=== PATIENT | male | born 1960 | race Hispanic/Latino ===

== ENCOUNTER 2017-02-20 19:09 | Inpatient (IN) | payer MEDICARE, OTHER ==
--- NOTE | 2017-02-20 19:52 | Emergency Department Report ---
History of Present Illness - General Chief Complaint: Overdose Stated Complaint: POSS OVERDOSE Time Seen by Provider: 02/20/17 19:33 Source: patient, EMS Mode of arrival: Wheelchair Limitations: No Limitations - History of Present Illness MD Complaint: intentional overdose -: Sudden, unknown How Overdose Was Discovered: family/friend present, called 911 Context: Intentional Overdose: relationship problems Context: Accidental Overdose: other (PATIENT DENIED SUICIDAL ATTEMPT. HE STATED THAT HE WAS ANXIOUS HE WANT TO RELAX) Treatments Prior to Arrival: narcan (RECEIVED 4 MG OF NARCAN) - Related Data Allergies Allergy/AdvReac Type Severity Reaction Status Date / Time No Known Allergies Allergy Unverified 02/20/17 19:15 ED Review of Systems ROS: Stated complaint: POSS OVERDOSE Other details as noted in HPI Comment: All other systems reviewed and negative Constitutional: denies: chills, fever ED Past Medical Hx - Past Medical History Previous Medical History?: No - Surgical History Past Surgical History?: Yes Additional Surgical History: finger; Arm; Leg surgery - Social History Smoking Status: Current Every Day Smoker Substance Use Type: Other ED Physical Exam - General Limitations: No Limitations General appearance: alert, in no apparent distress - Head Head exam: Present: atraumatic - Eye Eye exam: Present: normal appearance - ENT ENT exam: Present: normal exam - Neck Neck exam: Present: normal inspection - Respiratory Respiratory exam: Present: normal lung sounds bilaterally - Cardiovascular Cardiovascular Exam: Present: regular rate, normal heart sounds. Absent: systolic murmur, diastolic murmur - GI/Abdominal GI/Abdominal exam: Present: soft, normal bowel sounds. Absent: distended, tenderness, guarding, rebound, mass, pulsatile mass, hernia - Extremities Exam Extremities exam: Present: normal inspection - Back Exam Back exam: Present: normal inspection - Neurological Exam Neurological exam: Present: alert, oriented X3, CN II-XII intact - Psychiatric Psychiatric exam: Present: agitated, anxious - Expanded Psychiatric Exam Expanded Focused psych exam: Present: restlessness - Skin Skin exam: Present: warm, dry ED Course Vital Signs 02/20/17 19:15 Pulse Rate 90 Respiratory 18 Rate Blood Pressure 132/107 O2 Sat by Pulse 94 Oximetry - Reevaluation(s) Reevaluation #1: 02/21/17 01:40 PATIENT SLEEPING COMFORTABLY, EASILY AROUSABLE, NO EVIDENCE OF ALTERED MENTAL STATUS OR LETHARGY. BLOOD SUGAR IS 178, WAITING FOR PSYCHIATRIC TEAM FOR ADMISSION. ED Medical Decision Making - Lab Data Result diagrams: 02/20/17 19:46 02/20/17 19:46 Critical care attestation.: If time is entered above; I have spent that time in minutes in the direct care of this critically ill patient, excluding procedure time. ED Disposition Clinical Impression: Overdose Disposition: [id number] PSY HOSP/PSY UNIT Is pt being admited?: No Does the pt Need Aspirin: No Condition: Stable Referrals: PRIMARY CARE, [Primary Care Provider] - 3-5 Days
[2017-02-20] MEDS ORDERED: NACL 0.9% 1000 ML 1,000 ML IV ONE ×2 (19:53→21:53)
[2017-02-20 20:19] LABS: Basophils % (Auto) 0.3 % (0.0-1.8); Eosinophils % (Auto) 0.3 % (0.0-4.3); Hematocrit 45.5 % (35.5-45.6); Hemoglobin 14.8 gm/dl (11.8-15.2); Mean Corpuscular HGB Conc 33 % (32-34); Mean Corpuscular Hemoglobin 30 pg (28-32); Mean Corpuscular Volume 93 fl (84-94); Platelet Count 287 K/mm3 (140-440); Red Cell Distribution Width 13.9 % (13.2-15.2); White Blood Count 16.9 K/mm3 (4.5-11.0)
[2017-02-20 20:24] LABS: Alanine Aminotransferase 92 units/L (7-56); Albumin 4.2 g/dL (3.9-5); Albumin/Globulin Ratio 1.1 %; Alkaline Phosphatase 80 units/L (35-129); Anion Gap 20 mmol/L; BUN/Creatinine Ratio 21.66; Blood Urea Nitrogen 26 mg/dL (9-20); Calcium 8.6 mg/dL (8.4-10.2); Carbon Dioxide 27 mmol/L (22-30); Chloride 95.2 mmol/L (98-107); Glucose 422 mg/dL (75-100); Potassium 4.1 mmol/L (3.6-5.0); Sodium 138 mmol/L (137-145); Total Protein 8.2 g/dL (6.3-8.2)
[2017-02-20] MEDS ORDERED: ROCEPHIN/NS 1 GM/50 ML 1 GM/50 ML BAG IV ONE (21:53)
[2017-02-20] MEDS ORDERED: MORPHINE IV ONE (22:20)
[2017-02-20] MEDS ORDERED: ZOFRAN IV ONE (22:20)
[2017-02-20 23:03] LABS: Urine Drugs of Abuse Note Disclamer
[2017-02-20 23:16] LABS: Bilirubin,Urine NEG (Negative); Blood,Urine NEG (Negative); Ketones,Urine NEG (Negative); Leukocyte Esterase,Urine NEG (Negative); Mucus,Urine FEW /HPF; Nitrite,Urine NEG (Negative); Protein,Urine <15 mg/dL mg/dL (Negative)
[2017-02-21 12:37] LABS: Basophils % (Auto) 0.5 % (0.0-1.8); Eosinophils % (Auto) 1.4 % (0.0-4.3); Hematocrit 40.1 % (35.5-45.6); Hemoglobin 13.2 gm/dl (11.8-15.2); Mean Corpuscular HGB Conc 33 % (32-34); Mean Corpuscular Hemoglobin 30 pg (28-32); Mean Corpuscular Volume 90 fl (84-94); Platelet Count 227 K/mm3 (140-440); Red Blood Count 4.45 M/mm3 (3.65-5.03); Red Cell Distribution Width 13.7 % (13.2-15.2); White Blood Count 11.4 K/mm3 (4.5-11.0)
--- NOTE | 2017-02-21 12:41 | XRay Report ---
CHEST TWO VIEWS: 02/21/17 CLINICAL: Cough. COMPARISON: None FINDINGS: The heart is normal size. Large central pulmonary arteries. The lungs are hyperexpanded and hyperlucent. No airspace disease or pleural effusion.Mild scoliosis and exaggerated thoracic kyphosis. IMPRESSION: COPD and no acute change.
--- NOTE | 2017-02-21 12:45 | XRay Report ---
X-RAY LEFT FOREARM TWO VIEWS : 02/20/17 19:09:00 CLINICAL: Infection with draining pus. FINDINGS: Status post ORIF of both ulnar and radius fractures. A long plate with screws extends the proximal 2 thirds of the ulna and traverses healed fracture. An intramedullary elmira extends most of the length of the radius and traverses a proximal healed fracture of the radius. No erosive changes in the bones. There is moderate soft tissue swelling of the lateral soft tissues as well as the medial soft tissues. No soft tissue air. 2 linear opaque objects in the lateral soft tissues may be foreign bodies. IMPRESSION: Status post ORIF of old radius and ulna fractures. No signs of osteomyelitis. Soft tissue edema suggests cellulitis. Questionable foreign bodies in the lateral soft tissues.
[2017-02-21 12:52] LABS: Alanine Aminotransferase 76 units/L (7-56); Albumin 3.6 g/dL (3.9-5); Albumin/Globulin Ratio 1.1 %; Alkaline Phosphatase 64 units/L (35-129); Anion Gap 16 mmol/L; BUN/Creatinine Ratio 31.66; Blood Urea Nitrogen 19 mg/dL (9-20); Calcium 8.7 mg/dL (8.4-10.2); Carbon Dioxide 27 mmol/L (22-30); Chloride 99.3 mmol/L (98-107); Glucose 175 mg/dL (75-100); Potassium 3.9 mmol/L (3.6-5.0); Sodium 138 mmol/L (137-145)
[2017-02-21 13:07] LABS: Erythrocyte Sedimentation Rate 15 mm/Hr (0-20)
--- NOTE | 2017-02-21 14:43 | Emergency Department Report ---
ED General Adult HPI - General Chief complaint: Overdose Stated complaint: POSS OVERDOSE Time Seen by Provider: 02/20/17 19:33 Source: patient, EMS Mode of arrival: Wheelchair Limitations: No Limitations - History of Present Illness Initial comments: Brought this patient to my attention for review. As I understand that he was found overdosed in a car. He has a long history of methamphetamine abuse. The patient was seen and evaluated. He tells me that he has chronic drainage from his right arm. He is currently not on antibiotics. He is probably noncompliant. He has hardware in his right arm and was treated with prolonged antibiotics at [facility] for several weeks. He also states that he has a left inguinal hernia that he has been able to push in for a month. He denies any recent fever he denies any recent vomiting. Patient was seen at this facility yesterday. Apparently he was treated empirically with ceftriaxone. I'm not exactly sure what the indication was yesterday. However he was found to have an elevated lactic acid which upon repeat was normal. He also had an elevated white blood cell count. He has a dressed right arm. -: month(s) Location: right, upper extremity Radiation: non-radiation (chronic pain) Quality: dull Consistency: intermittent Improves with: none Worsens with: none Associated Symptoms: denies other symptoms Treatments Prior to Arrival: none - Related Data Home Medications Medication Instructions Recorded Confirmed Last Taken ALPRAZolam [Xanax TAB] 1 mg PO TID PRN 02/21/17 02/21/17 Unknown Allergies Allergy/AdvReac Type Severity Reaction Status Date / Time No Known Allergies Allergy Unverified 02/20/17 19:15 ED Review of Systems ROS: Stated complaint: POSS OVERDOSE Other details as noted in HPI Constitutional: denies: chills, fever Eyes: denies: eye pain, eye discharge, vision change ENT: denies: ear pain, throat pain Respiratory: denies: cough, shortness of breath, wheezing Cardiovascular: denies: chest pain, palpitations Endocrine: no symptoms reported Gastrointestinal: denies: abdominal pain, nausea, diarrhea Genitourinary: denies: urgency, dysuria Musculoskeletal: denies: back pain, joint swelling, arthralgia Skin: denies: rash, lesions Neurological: denies: headache, weakness, paresthesias Psychiatric: denies: anxiety, depression Hematological/Lymphatic: denies: easy bleeding, easy bruising ED Past Medical Hx - Past Medical History Previous Medical History?: No Hx Diabetes: Yes (noncompliant with meds) - Surgical History Past Surgical History?: Yes Additional Surgical History: finger; Arm; Leg surgery - Social History Smoking Status: Current Every Day Smoker Substance Use Type: Methamphetamines - Medications Home Medications: Home Medications Medication Instructions Recorded Confirmed Last Taken Type ALPRAZolam [Xanax TAB] 1 mg PO TID PRN 02/21/17 02/21/17 Unknown History ED Physical Exam - General Limitations: No Limitations General appearance: alert, in no apparent distress - Head Head exam: Present: atraumatic, normocephalic - Eye Eye exam: Present: normal appearance, PERRL, EOMI. Absent: scleral icterus - ENT ENT exam: Present: normal exam, mucous membranes moist - Neck Neck exam: Present: normal inspection. Absent: tenderness, meningismus - Respiratory Respiratory exam: Present: normal lung sounds bilaterally. Absent: respiratory distress - Cardiovascular Cardiovascular Exam: Present: regular rate, normal rhythm. Absent: systolic murmur, diastolic murmur, rubs, gallop - GI/Abdominal GI/Abdominal exam: Present: soft, normal bowel sounds. Absent: distended, tenderness, guarding, rebound, rigid - Rectal Rectal exam: Present: deferred - Extremities Exam Extremities exam: Present: other (erythema and a wound with some oozing from the right forearm.) - Back Exam Back exam: Present: normal inspection - Neurological Exam Neurological exam: Present: alert, oriented X3, CN II-XII intact. Absent: motor sensory deficit - Psychiatric Psychiatric exam: Present: normal mood, flat affect - Skin Skin exam: Present: warm, dry, erythema. Absent: rash ED Course Vital Signs 02/20/17 02/21/17 02/21/17 19:15 07:22 08:40 Temperature 98.3 F Pulse Rate 90 90 Respiratory 18 20 20 Rate Blood Pressure 132/107 Blood Pressure 129/51 [Left] O2 Sat by Pulse 94 100 100 Oximetry - Reevaluation(s) Reevaluation #1: Patient has an infection of his right forearm. It does appear to be quite chronic. He has a possibly chronically incarcerated left inguinal hernia. He is diabetic. He had a lactic acidosis yesterday. I do not foresee that this patient could be medically cleared in the near future. Therefore he was referred to Dr. Farias who was kind enough to admit him to the hospitalist service. 02/21/17 14:46 ED Medical Decision Making - Lab Data Result diagrams: 02/21/17 12:04 02/21/17 12:04 Laboratory Results - last 24 hr 02/20/17 02/20/17 02/20/17 19:20 19:46 19:46 WBC 16.9 H RBC 4.90 Hgb 14.8 Hct 45.5 MCV 93 MCH 30 MCHC 33 RDW 13.9 Plt Count 287 Lymph % (Auto) 6.0 L Gordon % (Auto) 8.7 H Eos % (Auto) 0.3 Baso % (Auto) 0.3 Lymph # 1.0 L Gordon # 1.5 H Eos # 0.1 Baso # 0.0 Seg Neutrophils % 84.7 H Seg Neutrophils # 14.3 H ESR PT INR VBG pH Sodium 138 Potassium 4.1 Chloride 95.2 L Carbon Dioxide 27 Anion Gap 20 BUN 26 H Creatinine 1.2 Estimated GFR > 60 BUN/Creatinine Ratio 21.66 Glucose 422 H POC Glucose 411 H Lactic Acid Calcium 8.6 Magnesium 2.00 Total Bilirubin 1.30 H AST 46 H ALT 92 H Alkaline Phosphatase 80 C-Reactive Protein Total Protein 8.2 Albumin 4.2 Albumin/Globulin Ratio 1.1 TSH Urine Color Urine Turbidity Urine pH Ur Specific Jolo Urine Protein Urine Glucose (UA) Urine Ketones Urine Blood Urine Nitrite Urine Bilirubin Urine Urobilinogen Ur Leukocyte Esterase Urine WBC (Auto) Urine RBC (Auto) Urine Mucus Salicylates Urine Opiates Screen Urine Methadone Screen Acetaminophen Ur Barbiturates Screen Ur Phencyclidine Scrn Ur Amphetamines Screen U Benzodiazepines Scrn Urine Cocaine Screen U Marijuana (THC) Screen Drugs of Abuse Note Plasma/Serum Alcohol 02/20/17 02/20/17 02/20/17 19:46 19:46 19:46 WBC RBC Hgb Hct MCV MCH MCHC RDW Plt Count Lymph % (Auto) Gordon % (Auto) Eos % (Auto) Baso % (Auto) Lymph # Gordon # Eos # Baso # Seg Neutrophils % Seg Neutrophils # ESR PT INR VBG pH Sodium Potassium Chloride Carbon Dioxide Anion Gap BUN Creatinine Estimated GFR BUN/Creatinine Ratio Glucose POC Glucose Lactic Acid 2.70 H* Calcium Magnesium Total Bilirubin AST ALT Alkaline Phosphatase C-Reactive Protein Total Protein Albumin Albumin/Globulin Ratio TSH 2.900 Urine Color Urine Turbidity Urine pH Ur Specific Jolo Urine Protein Urine Glucose (UA) Urine Ketones Urine Blood Urine Nitrite Urine Bilirubin Urine Urobilinogen Ur Leukocyte Esterase Urine WBC (Auto) Urine RBC (Auto) Urine Mucus Salicylates < 0.3 L Urine Opiates Screen Urine Methadone Screen Acetaminophen Ur Barbiturates Screen Ur Phencyclidine Scrn Ur Amphetamines Screen U Benzodiazepines Scrn Urine Cocaine Screen U Marijuana (THC) Screen Drugs of Abuse Note Plasma/Serum Alcohol 02/20/17 02/20/17 02/20/17 19:46 19:46 19:46 WBC RBC Hgb Hct MCV MCH MCHC RDW Plt Count Lymph % (Auto) Gordon % (Auto) Eos % (Auto) Baso % (Auto) Lymph # Gordon # Eos # Baso # Seg Neutrophils % Seg Neutrophils # ESR PT INR VBG pH 7.306 L Sodium Potassium Chloride Carbon Dioxide Anion Gap BUN Creatinine Estimated GFR BUN/Creatinine Ratio Glucose POC Glucose Lactic Acid Calcium Magnesium Total Bilirubin AST ALT Alkaline Phosphatase C-Reactive Protein Total Protein Albumin Albumin/Globulin Ratio TSH Urine Color Urine Turbidity Urine pH Ur Specific Jolo Urine Protein Urine Glucose (UA) Urine Ketones Urine Blood Urine Nitrite Urine Bilirubin Urine Urobilinogen Ur Leukocyte Esterase Urine WBC (Auto) Urine RBC (Auto) Urine Mucus Salicylates Urine Opiates Screen Urine Methadone Screen Acetaminophen < 15.0 Ur Barbiturates Screen Ur Phencyclidine Scrn Ur Amphetamines Screen U Benzodiazepines Scrn Urine Cocaine Screen U Marijuana (THC) Screen Drugs of Abuse Note Plasma/Serum Alcohol < 0.01 02/20/17 02/20/17 02/20/17 22:15 22:41 22:41 WBC RBC Hgb Hct MCV MCH MCHC RDW Plt Count Lymph % (Auto) Gordon % (Auto) Eos % (Auto) Baso % (Auto) Lymph # Gordon # Eos # Baso # Seg Neutrophils % Seg Neutrophils # ESR PT INR VBG pH Sodium Potassium Chloride Carbon Dioxide Anion Gap BUN Creatinine Estimated GFR BUN/Creatinine Ratio Glucose POC Glucose Lactic Acid 1.50 Calcium Magnesium Total Bilirubin AST ALT Alkaline Phosphatase C-Reactive Protein Total Protein Albumin Albumin/Globulin Ratio TSH Urine Color Yellow Urine Turbidity Clear Urine pH 5.0 Ur Specific Jolo 1.025 Urine Protein <15 mg/dl Urine Glucose (UA) >=500 Urine Ketones Neg Urine Blood Neg Urine Nitrite Neg Urine Bilirubin Neg Urine Urobilinogen 2.0 Ur Leukocyte Esterase Neg Urine WBC (Auto) 1.0 Urine RBC (Auto) 3.0 Urine Mucus Few Salicylates Urine Opiates Screen Presumptive positive Urine Methadone Screen Presumptive negative Acetaminophen Ur Barbiturates Screen Presumptive negative Ur Phencyclidine Scrn Presumptive negative Ur Amphetamines Screen Presumptive positive U Benzodiazepines Scrn Presumptive negative Urine Cocaine Screen Presumptive negative U Marijuana (THC) Screen Presumptive negative Drugs of Abuse Note Disclamer Plasma/Serum Alcohol 02/20/17 02/21/17 02/21/17 23:02 12:04 12:04 WBC 11.4 H RBC 4.45 Hgb 13.2 Hct 40.1 MCV 90 D MCH 30 MCHC 33 RDW 13.7 Plt Count 227 Lymph % (Auto) 21.3 Gordon % (Auto) 8.8 H Eos % (Auto) 1.4 Baso % (Auto) 0.5 Lymph # 2.4 Gordon # 1.0 H Eos # 0.2 Baso # 0.1 Seg Neutrophils % 68.0 Seg Neutrophils # 7.7 ESR 15 PT 13.1 INR 1.00 VBG pH Sodium Potassium Chloride Carbon Dioxide Anion Gap BUN Creatinine Estimated GFR BUN/Creatinine Ratio Glucose POC Glucose 178 H Lactic Acid Calcium Magnesium Total Bilirubin AST ALT Alkaline Phosphatase C-Reactive Protein Total Protein Albumin Albumin/Globulin Ratio TSH Urine Color Urine Turbidity Urine pH Ur Specific Jolo Urine Protein Urine Glucose (UA) Urine Ketones Urine Blood Urine Nitrite Urine Bilirubin Urine Urobilinogen Ur Leukocyte Esterase Urine WBC (Auto) Urine RBC (Auto) Urine Mucus Salicylates Urine Opiates Screen Urine Methadone Screen Acetaminophen Ur Barbiturates Screen Ur Phencyclidine Scrn Ur Amphetamines Screen U Benzodiazepines Scrn Urine Cocaine Screen U Marijuana (THC) Screen Drugs of Abuse Note Plasma/Serum Alcohol 02/21/17 02/21/17 02/21/17 12:04 12:04 12:04 WBC RBC Hgb Hct MCV MCH MCHC RDW Plt Count Lymph % (Auto) Gordon % (Auto) Eos % (Auto) Baso % (Auto) Lymph # Gordon # Eos # Baso # Seg Neutrophils % Seg Neutrophils # ESR PT INR VBG pH 7.347 Sodium 138 Potassium 3.9 Chloride 99.3 Carbon Dioxide 27 Anion Gap 16 BUN 19 Creatinine 0.6 L Estimated GFR > 60 BUN/Creatinine Ratio 31.66 Glucose 175 H POC Glucose Lactic Acid 1.10 Calcium 8.7 Magnesium Total Bilirubin 0.90 AST 47 H ALT 76 H Alkaline Phosphatase 64 C-Reactive Protein Total Protein 7.0 Albumin 3.6 L Albumin/Globulin Ratio 1.1 TSH Urine Color Urine Turbidity Urine pH Ur Specific Jolo Urine Protein Urine Glucose (UA) Urine Ketones Urine Blood Urine Nitrite Urine Bilirubin Urine Urobilinogen Ur Leukocyte Esterase Urine WBC (Auto) Urine RBC (Auto) Urine Mucus Salicylates Urine Opiates Screen Urine Methadone Screen Acetaminophen Ur Barbiturates Screen Ur Phencyclidine Scrn Ur Amphetamines Screen U Benzodiazepines Scrn Urine Cocaine Screen U Marijuana (THC) Screen Drugs of Abuse Note Plasma/Serum Alcohol 02/21/17 12:04 WBC RBC Hgb Hct MCV MCH MCHC RDW Plt Count Lymph % (Auto) Gordon % (Auto) Eos % (Auto) Baso % (Auto) Lymph # Gordon # Eos # Baso # Seg Neutrophils % Seg Neutrophils # ESR PT INR VBG pH Sodium Potassium Chloride Carbon Dioxide Anion Gap BUN Creatinine Estimated GFR BUN/Creatinine Ratio Glucose POC Glucose Lactic Acid Calcium Magnesium Total Bilirubin AST ALT Alkaline Phosphatase C-Reactive Protein 0.70 Total Protein Albumin Albumin/Globulin Ratio TSH Urine Color Urine Turbidity Urine pH Ur Specific Jolo Urine Protein Urine Glucose (UA) Urine Ketones Urine Blood Urine Nitrite Urine Bilirubin Urine Urobilinogen Ur Leukocyte Esterase Urine WBC (Auto) Urine RBC (Auto) Urine Mucus Salicylates Urine Opiates Screen Urine Methadone Screen Acetaminophen Ur Barbiturates Screen Ur Phencyclidine Scrn Ur Amphetamines Screen U Benzodiazepines Scrn Urine Cocaine Screen U Marijuana (THC) Screen Drugs of Abuse Note Plasma/Serum Alcohol - Radiology Data Radiology results: report reviewed interpreted by me: Should right forearm foreign body. No gross evidence of osteomyelitis. Chest x -ray is consistent with COPD. Critical care attestation.: If time is entered above; I have spent that time in minutes in the direct care of this critically ill patient, excluding procedure time. ED Disposition Clinical Impression: Cellulitis of right forearm, Lactic acidosis Inguinal hernia Qualifiers: Obstruction and gangrene presence: without obstruction or gangrene Laterality: unilateral Recurrence: not specified as recurrent Qualified Code(s): K40.90 - Unilateral inguinal hernia, without obstruction or gangrene, not specified as recurrent Uncontrolled diabetes mellitus Qualifiers: Diabetes mellitus type: type 1 Diabetes mellitus complication status: without complication Qualified Code(s): E10.9 - Type 1 diabetes mellitus without complications COPD (chronic obstructive pulmonary disease) Qualifiers: COPD type: unspecified COPD Qualified Code(s): J44.9 - Chronic obstructive pulmonary disease, unspecified Foreign body forearm Qualifiers: Encounter type: initial encounter Laterality: right Qualified Code(s): S50.851A - Superficial foreign body of right forearm, initial encounter Disposition: OP ADMIT IP TO THIS HOSP Is pt being admited?: Yes Does the pt Need Aspirin: Yes Condition: Stable Instructions: Diabetes Mellitus Type 2 in Adults (ED), Chronic Obstructive Pulmonary Disease (ED) Referrals: PRIMARY CARE,MD [Primary Care Provider] - 3-5 Days Time of Disposition: 12:00
[2017-02-21] MEDS ORDERED: BABY ASPIRIN PO ONE (14:48)
--- NOTE | 2017-02-21 15:00 | History and Physical Report ---
History of Present Illness Chief complaint: My arm hurts,and my hernia is back History of present illness: 56 YO Male with Nicotine Dependence, DM, Methamphetamine Dependence presents to ED. Pt was found unresponsive in his car. Pt transported to [facility] for evaluation. Pt states that he does not remember what happened. Pt states that he has been experiencing pain and redness in his right arm for the past 2 days. Patient was seen and evaluated in ED and found to have Right arm cellulitis. Pt also complains of groin pain. Upon evaluation, pt found to have Left inguinal hernia which was reduced by me in the ED. Pt acknowledges subjective fever,but denies chills, CP, Palpitation, NVD, BRBPR, Trauma, Recent ill contacts. Past History Past Medical History: diabetes, other (Nicotine Dependence, Methamphetamine Dependence) Past Surgical History: Other (Finger, arm, leg) Social history: single, smoking Family history: no significant family history, other (reviewed) Medications and Allergies Allergies Allergy/AdvReac Type Severity Reaction Status Date / Time No Known Allergies Allergy Unverified 02/20/17 19:15 Home Medications Medication Instructions Recorded Confirmed Last Taken Type ALPRAZolam [Xanax TAB] 1 mg PO TID PRN 02/21/17 02/21/17 Unknown History Review of Systems All systems: negative Constitutional: other (arm pain) Exam - Constitutional Vitals: Temp Pulse Resp BP Pulse Ox 98.3 F 90 20 129/51 100 02/21/17 07:22 02/21/17 07:22 02/21/17 08:40 02/21/17 07:22 02/21/17 08:40 General appearance: Present: mild distress - EENT Eyes: Present: PERRL ENT: hearing intact, clear oral mucosa - Neck Neck: Present: supple, normal ROM - Respiratory Respiratory effort: normal Respiratory: bilateral: CTA - Cardiovascular Heart Sounds: Present: S1 & S2. Absent: rub, click - Extremities Extremities: pulses symmetrical, No edema Peripheral Pulses: within normal limits - Abdominal General gastrointestinal: Present: soft, non-tender, non-distended, normal bowel sounds, hernia (left Inguinal) Male genitourinary: Present: normal - Integumentary Integumentary: Present: clear, warm, dry, rash (right arm,) - Musculoskeletal Musculoskeletal: gait normal, strength equal bilaterally - Psychiatric Psychiatric: appropriate mood/affect, intact judgment & insight - Neurologic Neurologic: CNII-XII intact, moves all extremities Results - Labs CBC & Chem 7: 02/21/17 12:04 02/21/17 12:04 Labs: Abnormal lab results 02/20/17 02/20/17 02/20/17 Range/Units 19:20 19:46 19:46 WBC 16.9 H (4.5-11.0) K/mm3 Lymph % (Auto) 6.0 L (13.4-35.0) % [place] % (Auto) 8.7 H (0.0-7.3) % Lymph # 1.0 L (1.2-5.4) K/mm3 [place] # 1.5 H (0.0-0.8) K/mm3 Seg Neutrophils % 84.7 H (40.0-70.0) % Seg Neutrophils # 14.3 H (1.8-7.7) K/mm3 VBG pH (7.320-7.420) Chloride 95.2 L (98-107) mmol/L BUN 26 H (9-20) mg/dL Creatinine (0.8-1.5) mg/dL Glucose 422 H (75-100) mg/dL POC Glucose 411 H (70-105) Lactic Acid (0.7-2.0) mmol/L Total Bilirubin 1.30 H (0.1-1.2) mg/dL AST 46 H (5-40) units/L ALT 92 H (7-56) units/L Albumin (3.9-5) g/dL Salicylates (2.8-20.0) mg/dL 02/20/17 02/20/17 02/20/17 Range/Units 19:46 19:46 19:46 WBC (4.5-11.0) K/mm3 Lymph % (Auto) (13.4-35.0) % [place] % (Auto) (0.0-7.3) % Lymph # (1.2-5.4) K/mm3 [place] # (0.0-0.8) K/mm3 Seg Neutrophils % (40.0-70.0) % Seg Neutrophils # (1.8-7.7) K/mm3 VBG pH 7.306 L (7.320-7.420) Chloride (98-107) mmol/L BUN (9-20) mg/dL Creatinine (0.8-1.5) mg/dL Glucose (75-100) mg/dL POC Glucose (70-105) Lactic Acid 2.70 H* (0.7-2.0) mmol/L Total Bilirubin (0.1-1.2) mg/dL AST (5-40) units/L ALT (7-56) units/L Albumin (3.9-5) g/dL Salicylates < 0.3 L (2.8-20.0) mg/dL 02/20/17 02/21/17 02/21/17 Range/Units 23:02 12:04 12:04 WBC 11.4 H (4.5-11.0) K/mm3 Lymph % (Auto) (13.4-35.0) % [place] % (Auto) 8.8 H (0.0-7.3) % Lymph # (1.2-5.4) K/mm3 [place] # 1.0 H (0.0-0.8) K/mm3 Seg Neutrophils % (40.0-70.0) % Seg Neutrophils # (1.8-7.7) K/mm3 VBG pH (7.320-7.420) Chloride (98-107) mmol/L BUN (9-20) mg/dL Creatinine 0.6 L (0.8-1.5) mg/dL Glucose 175 H (75-100) mg/dL POC Glucose 178 H (70-105) Lactic Acid (0.7-2.0) mmol/L Total Bilirubin (0.1-1.2) mg/dL AST 47 H (5-40) units/L ALT 76 H (7-56) units/L Albumin 3.6 L (3.9-5) g/dL Salicylates (2.8-20.0) mg/dL Assessment and Plan - Patient Problems (1) Sepsis Current Visit: Yes Status: Acute Qualifiers: Sepsis type: S Plan to address problem: IV abx, IVF, blood cultures, serial lactate, supportive care, monitor uop q shift, (2) Cellulitis of right forearm Current Visit: Yes Status: Acute Plan to address problem: IV abx, wound care, (3) Inguinal hernia Current Visit: Yes Status: Acute Qualifiers: Obstruction and gangrene presence: without obstruction or gangrene Laterality: unilateral Recurrence: not specified as recurrent Qualified Code (s): K40.90 - Unilateral inguinal hernia, without obstruction or gangrene, not specified as recurrent Plan to address problem: CT abdomen pelvis, serial abdominal exam, hernia reduced in ED, (4) Lactic acidosis Current Visit: Yes Status: Acute Plan to address problem: IVF, supportive care, treat sepsis, (5) Uncontrolled diabetes mellitus Current Visit: Yes Status: Acute Qualifiers: Diabetes mellitus type: type 1 Diabetes mellitus complication status: without complication Diabetes mellitus complication detail: D Diabetic retinopathy severity: D Proliferative retinopathy type: P Diabetes mellitus macular edema: D Diabetes mellitus cup setter lockstitch insulin use: D Laterality: L Chronic kidney disease stage: C Qualified Code(s): E10.9 - Type 1 diabetes mellitus without complications Plan to address problem: ADA diet, insulin, accu check (6) DVT prophylaxis Current Visit: Yes Status: Acute
[2017-02-21] MEDS ORDERED: TYLENOL PO PRN (15:01)
[2017-02-21] MEDS ORDERED: DULCOLAX PR PRN (15:01)
[2017-02-21] MEDS ORDERED: MILK OF MAGNESIA PO PRN (15:01)
[2017-02-21] MEDS ORDERED: ZOFRAN IV PRN (15:01)
[2017-02-21] MEDS ORDERED: DUONEB *Not for PRN Use IH (15:01)
[2017-02-21] MEDS ORDERED: VANCOMYCIN VIAL IV ONE (15:01)
[2017-02-21] MEDS ORDERED: PROVENTIL IH PRN (15:18)
--- NOTE | 2017-02-21 15:36 | Admit Criteria Form ---
Admission Criteria Documentation: CELLULITIS Clinical Indications for Admission to Inpatient Care (Place 'X' for any and all applicable criteria): Admission is indicated for ANY ONE of the following(1)(2)(3)(4)(5): [ ]I. Limb-threatening infection [X ]II. High-risk comorbid condition as indicated by ANY ONE of the following: [X ]a) Uncontrolled diabetes (eg, HbA1c greater than 10% (0.1)) [ ]b) Cirrhosis [ ]c) Neutropenia [ ]d) Asplenia [ ]e) Immunosuppression [ ]f) Symptomatic heart failure [ ]III. Failure of outpatient therapy as indicated by ALL of the following: [ ]a) Progression or no improvement after adequate trial (minimum of 48 hours, with longer period for stable lower extremity infection) [ ]b) Adequate antibiotic regimen as indicated by use of ANY ONE of the following: [ ]i) First-generation cephalosporin (e.g., cephalexin) [ ]ii) Antistaphylococcal penicillin (e.g., dicloxacillin) [ ]iii) Penicillin-allergic patient regimen (clindamycin, extended-spectrum fluoroquinolone, or doxycycline) [ ]iv) Resistant organism (eg, methicillin-resistant Staphylococcus aureus) regimen (6) [ ]c) Outpatient intravenous therapy regimen is not appropriate due to ANY ONE of the following. (7)(8)(9)(10): [ ]i) It was tried and was not successful (eg, progression of infection). [ ]ii) It is not available or cannot be arranged in a clinically appropriate time frame (e.g., the next day). [ ]iii) Clinical presentation (eg, acuity of infection, rapidity of progression, confirmed or suspected bacteremia) is judged to require ALL of the following: [ ]1) Immediate initiation of intravenous therapy ( eg, cannot wait for next day) [ ]2) Intensity of patient monitoring and observation (eg, vital sign measurement, checks for infection progression) that cannot be provided at other than inpatient level of care [ ]IV. Mental status changes [ ]V. Bacteremia [ ]. Hemodynamic instability [ ]VII. Suspected necrotizing soft tissue infection (e.g., gas in tissue)(11)( 12) [ ]VIII. Orbital infection (13)(14) [ ]IX. Associated surgical procedure (e.g., abscess drainage, debridement) not amenable to outpatient, emergency department, or observation care [ ]X. Cutaneous gangrene [ ]XI. High fever (temperature greater than 39.5 degrees C (103.1 degrees F) (oral)) not responsive to outpatient, emergency department, or observation care therapy [ ]XIII. Inpatient admission required rather than observation care (Also use Cellulitis: Observation Care as appropriate) because of ANY ONE of the following : [ ]a) Periorbital or perineal infection that is severe or worsening [ ]b) Severe pain requiring acute inpatient management [ ]c) IV fluid to replace significant ongoing (e.g., for over 24 hours) losses (greater than 3L/m2 per day) [ ]d) Compartment syndrome monitoring (17) [ ]e) Strict or protective (eg, laminar flow) isolation [ ]f) Urgent debridement or skin grafting [ ]g) Bone or joint debridement [ ]h) Immediate inpatient surgery [ ]i) Other condition, treatment or monitoring requiring inpatient admission Extended stay beyond goal length of stay may be needed for (1)(18): [ ]a) Necrotizing soft tissue infection or fasciitis [ ]b) Gram-negative infection [ ]c) Methicillin-resistant Staphylococcal aureus (MRSA) infection [ ]d) Peripheral venous insufficiency with cellulitis [ ]e) Extensive edema [ ]f) Sepsis or continued Hemodynamic instability [ ]g) Continued high fever or mental status change [ ]h) Bacteremia [ ]i) Active serious comorbid conditions ( eg, heart failure, renal insufficiency) The original [employer] content created by [employer] [employer] has been revised. The portions of the content which have been revised are identified through the use of italic text or in bold, and [facility] has neither reviewed nor approved the modified material. All other unmodified content is copyright [facility] Please see references footnoted in the original [facility] [place] edition 2016 Admission Criteria Met: Yes
[2017-02-21] MEDS ORDERED: PERCOCET 5/325 ONE (15:45)
[2017-02-21] MEDS ORDERED: BABY ASPIRIN ONE (15:46)
[2017-02-21] MEDS ORDERED: ZOSYN/NS 4.5GM/100ML 4.5 GM/100 ML VIAL IV ONE (15:47)
[2017-02-21] MEDS: PERCOCET 5/325 PO PRN ×2 (15:52→22:06)
[2017-02-21] MEDS: ZOSYN/NS 4.5GM/100ML 4.5 GM/100 ML VIAL IV SCH (15:53)
[2017-02-21] MEDS ORDERED: VANCOMYCIN PHARMACY TO DOSE IV SCH (16:00)
[2017-02-21] MEDS ORDERED: NACL 0.9% 1000 ML IV ONE (16:00)
[2017-02-21] MEDS ORDERED: PROVENTIL IH ONE (16:31)
--- NOTE | 2017-02-21 16:37 | Cat Scan Report ---
CT abdomen and pelvis without contrast: Inguinal hernia. Transverse images obtained from the lower chest to the ischium with coronal and sagittal 2-D reformatted images. The visualized lung bases are clear. Abdominal and retroperitoneal organs appear unremarkable. The abdominal aorta is normal in size and contour. As no obvious adenopathy although evaluation is limited due to lack of contrast and decreased fat.The bowel is unopacified. No evidence of obstruction, mass or diverticular disease. No inflammatory changes. Sections through the pelvis demonstrate a fat containing 2.4 cm left inguinal hernia medial to the femoral vessels. A tiny fat containing hernia seen in the right inguinal canal. No other pelvic findings. Mild narrowing of the L5-S1 disc and spondylosis from L3-L5. Impressions: Nonobstructing left inguinal hernia.
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
[2017-02-21] MEDS: VANCOMYCIN 1,250 MG in NACL 0.9% 250ML 250 ML IV SCH (17:36)
[2017-02-21] MEDS ORDERED: NACL 0.9% 1000 ML 2,000 ML ONE (17:36)
[2017-02-21] MEDS ORDERED: PNEUMOVAX 23 IM ONE (17:53)
[2017-02-21] MEDS: celeXA PO SCH (22:11)
[2017-02-22] MEDS: TESSALON PERLES PO PRN ×2 (03:33→23:09)
[2017-02-22] MEDS: ZOSYN/NS 4.5GM/100ML 4.5 GM/100 ML VIAL IV SCH ×4 (03:34→23:11)
[2017-02-22] MEDS: PERCOCET 5/325 PO PRN ×3 (03:46→20:35)
[2017-02-22] MEDS: VANCOMYCIN 1,250 MG in NACL 0.9% 250ML 250 ML IV SCH ×3 (04:14→17:16)
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
[2017-02-22] MEDS: celeXA PO SCH (10:50)
[2017-02-22] MEDS ORDERED: PNEUMOVAX 23 IM ONE (12:00)
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
[2017-02-22] MEDS: NOVOLOG SUB-Q SCH (23:09)
[2017-02-23] MEDS: VANCOMYCIN 1,250 MG in NACL 0.9% 250ML 250 ML IV SCH ×4 (00:36→23:42)
[2017-02-23 06:49] LABS: Hematocrit 39.2 % (35.5-45.6); Hemoglobin 13.4 gm/dl (11.8-15.2); Mean Corpuscular HGB Conc 34 % (32-34); Mean Corpuscular Hemoglobin 30 pg (28-32); Mean Corpuscular Volume 89 fl (84-94); Platelet Count 205 K/mm3 (140-440); Red Blood Count 4.41 M/mm3 (3.65-5.03); Red Cell Distribution Width 13.4 % (13.2-15.2); White Blood Count 7.2 K/mm3 (4.5-11.0)
[2017-02-23 07:04] LABS: Anion Gap 13 mmol/L; Blood Urea Nitrogen 8 mg/dL (9-20); Calcium 8.2 mg/dL (8.4-10.2); Carbon Dioxide 26 mmol/L (22-30); Chloride 102.5 mmol/L (98-107); Glucose 106 mg/dL (75-100); Potassium 3.6 mmol/L (3.6-5.0); Sodium 138 mmol/L (137-145)
[2017-02-23] MEDS: NOVOLOG SUB-Q SCH ×3 (09:07→17:54)
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
[2017-02-23] MEDS: PERCOCET 5/325 PO PRN ×3 (10:38→23:37)
[2017-02-23] MEDS: celeXA PO SCH (10:39)
[2017-02-23] MEDS: ZOSYN/NS 4.5GM/100ML 4.5 GM/100 ML VIAL IV SCH ×3 (10:39→23:39)
--- NOTE | 2017-02-23 13:44 | Consultation ---
Past History Past Medical History: diabetes, other (Nicotine Dependence, Methamphetamine Dependence) Past Surgical History: Other (Finger, arm, leg) Social history: single, smoking Family history: no significant family history, other (reviewed) Medications and Allergies Allergies Allergy/AdvReac Type Severity Reaction Status Date / Time No Known Allergies Allergy Unverified 02/20/17 19:15 Home Medications Medication Instructions Recorded Confirmed Last Taken Type ALPRAZolam [Xanax TAB] 1 mg PO TID PRN 02/21/17 02/21/17 Unknown History Active Meds: Active Medications Acetaminophen (Tylenol) 650 mg PO Q4H PRN PRN Reason: Pain MILD(1-3)/Fever >100.5/GIBBONS Albuterol (Proventil) 2.5 mg IH Q4HRT PRN PRN Reason: Shortness Of Breath Last Admin: 02/21/17 16:36 Dose: 2.5 mg Benzonatate (Tessalon Perles) 100 mg PO Q8H PRN PRN Reason: Cough Last Admin: 02/22/17 23:09 Dose: 100 mg Bisacodyl (Dulcolax) [address] QDAY PRN PRN Reason: Constipation unrelieved by MOM Citalopram Hydrobromide (Celexa) 10 mg PO QDAY ROSETTA Last Admin: 02/23/17 10:39 Dose: 10 mg Piperacillin Sod/Tazobactam Sod (Zosyn/Ns 4.5gm/100ml) 4.5 gm in 100 mls @ 200 mls/hr IV Q8H ROSETTA PRN Reason: Protocol Last Admin: 02/23/17 10:39 Dose: 200 mls/hr Vancomycin HCl 1,250 mg/ (Sodium Chloride) 275 mls @ 137.5 mls/hr IV Q8H ROSETTA Last Admin: 02/23/17 10:39 Dose: 137.5 mls/hr Insulin Aspart (Novolog) 0 units SUB-Q ACHS ROSETTA PRN Reason: Protocol Last Admin: 02/23/17 12:55 Dose: 4 units Magnesium Hydroxide (Milk Of Magnesia) 30 ml PO Q4H PRN PRN Reason: Constipation Ondansetron HCl (Zofran) 4 mg IV Q8H PRN PRN Reason: N/V unrelieved by Reglan Oxycodone/Acetaminophen (Percocet 5/325) 1 tab PO Q6H PRN PRN Reason: Pain, Moderate (4-6) Last Admin: 02/23/17 10:38 Dose: 1 tab Vancomycin HCl (Vancomycin Pharmacy To Dose) 1 each IV PKCONSULT ROSETTA PRN Reason: Protocol Exam Vital Signs Pulse Resp BP Pulse Ox 90 18 132/107 94 02/20/17 19:15 02/20/17 19:15 02/20/17 19:15 02/20/17 19:15 Results - Labs 02/23/17 05:59 02/23/17 05:59 Abnormal lab results 02/22/17 02/22/17 02/23/17 Range/Units 15:57 21:06 05:59 BUN 8 L (9-20) mg/dL Creatinine 0.5 L (0.8-1.5) mg/dL Glucose 106 H (75-100) mg/dL POC Glucose 185 H 273 H (70-105) Calcium 8.2 L (8.4-10.2) mg/dL 02/23/17 Range/Units 12:01 BUN (9-20) mg/dL Creatinine (0.8-1.5) mg/dL Glucose (75-100) mg/dL POC Glucose 242 H (70-105) Calcium (8.4-10.2) mg/dL Diabetes panel 02/23/17 Range/Units 05:59 Sodium 138 (137-145) mmol/L Potassium 3.6 (3.6-5.0) mmol/L Chloride 102.5 (98-107) mmol/L Carbon Dioxide 26 (22-30) mmol/L BUN 8 L (9-20) mg/dL Creatinine 0.5 L (0.8-1.5) mg/dL Glucose 106 H (75-100) mg/dL Calcium 8.2 L (8.4-10.2) mg/dL Calcium panel 02/23/17 Range/Units 05:59 Calcium 8.2 L (8.4-10.2) mg/dL Pituitary panel 02/23/17 Range/Units 05:59 Sodium 138 (137-145) mmol/L Potassium 3.6 (3.6-5.0) mmol/L Chloride 102.5 (98-107) mmol/L Carbon Dioxide 26 (22-30) mmol/L BUN 8 L (9-20) mg/dL Creatinine 0.5 L (0.8-1.5) mg/dL Glucose 106 H (75-100) mg/dL Calcium 8.2 L (8.4-10.2) mg/dL Adrenal panel 02/23/17 Range/Units 05:59 Sodium 138 (137-145) mmol/L Potassium 3.6 (3.6-5.0) mmol/L Chloride 102.5 (98-107) mmol/L Carbon Dioxide 26 (22-30) mmol/L BUN 8 L (9-20) mg/dL Creatinine 0.5 L (0.8-1.5) mg/dL Glucose 106 H (75-100) mg/dL Calcium 8.2 L (8.4-10.2) mg/dL Assessment and Plan Hx as below: reason for consult LIH on CT Chief complaint: My arm hurts,and my hernia is back History of present illness: 56 YO Male with Nicotine Dependence, DM, Methamphetamine Dependence presents to ED. Pt was found unresponsive in his car. Pt transported to [facility] for evaluation. Pt states that he does not remember what happened. Pt states that he has been experiencing pain and redness in his right arm for the past 2 days. Patient was seen and evaluated in ED and found to have Right arm cellulitis. Pt also complains of groin pain. Upon evaluation, pt found to have Left inguinal hernia which was reduced by me in the ED. Pt acknowledges subjective fever,but denies chills, CP, Palpitation, NVD, BRBPR, Trauma, Recent ill contacts. Past History Past Medical History: diabetes, other (Nicotine Dependence, Methamphetamine Dependence) Past Surgical History: Other (Finger, arm, leg) Social history: single, smoking Family history: no significant family history, other (reviewed) CT abd - non incarcerated LIH PE - easily reducible LIH imp as above. pt + MRSA rec - elective LIH as outpt once d/c'ed and infection resolved december f/u in office post discharge Selected Entries 02/23/17 08:15 Temperature 98.4 F Pulse Rate [ 80 Left Radial] Respiratory 16 Rate Blood Pressure 161/88 [Left Arm] Laboratory Tests 02/23/17 02/23/17 05:59 05:59 WBC 7.2 Hgb 13.4 Hct 39.2 Sodium 138 Potassium 3.6 Chloride 102.5 Carbon Dioxide 26 Anion Gap 13
--- NOTE | 2017-02-23 17:00 | Progress Note ---
Subjective - Reason for Consult Reason for consult: psych consult - Chief Complaint Chief complaint: "I did not overdose" 56 year old male brought in by EMS status post overdose. Patient continues to note that he is having no suicidal thoughts at this time. He states that he simply just wanted to lighten the pain and therefore had an overdose on an unknown substance that his girlfriend had given him. He notes at this time also homicidal thoughts no auditory visual hallucinations. He states no depression and euphoria or psychosis. He has not shown any aggression or any gestures of self-harm per the sitter outside his room either. Mental Status Exam - Vital signs Last Vital Signs Temp 98.4 F 02/23/17 08:15 Pulse 80 02/23/17 08:15 Resp 16 02/23/17 08:15 BP 161/88 02/23/17 08:15 Pulse Ox 94 02/23/17 08:15 - Exam Orientation: time, place, person Affect: depressed Mood: appropriate Thought Process: Intact Perceptions: none Speech: normal rate and pattern Concentration: focused Level of consciousness: alert Memory: Intact Sleep Symptoms: None Interaction: cooperative Mini mental status exam(if necessary): 24-30 Assessment and Plan Assessment and Plan Impression: Substance Use DO, (amphetamine) Opioid Use DO, Historical Dx: MDD and ROBE. Today patient is calm and cooperative during assessment. No acute withdrawals noted (opioids/benzos). Recommendation/Plan: We are going to rescind the 1013 at this time the patient currently is in no acute risk of harm was to himself or others denies any depression or suicidal thoughts or homicidal thoughts. Continued outpatient psychiatric medication and follow-up with outpatient services. I feel at this time that this overdose was not intentional nor an attempt to harm himself rather that this was an overdose to try to get high and that went in a dangerous direction. We will offer him outpatient services for substance use and continued outpatient care perhaps a partial hospitalization program would be beneficial for this patient.
[2017-02-24] MEDS: NOVOLOG SUB-Q SCH ×5 (00:21→23:29)
[2017-02-24 05:27] LABS: Hematocrit 40.9 % (35.5-45.6); Hemoglobin 13.8 gm/dl (11.8-15.2); Mean Corpuscular HGB Conc 34 % (32-34); Mean Corpuscular Hemoglobin 30 pg (28-32); Mean Corpuscular Volume 89 fl (84-94); Platelet Count 225 K/mm3 (140-440); Red Blood Count 4.59 M/mm3 (3.65-5.03); Red Cell Distribution Width 13.3 % (13.2-15.2); White Blood Count 6.2 K/mm3 (4.5-11.0)
[2017-02-24 05:32] LABS: Anion Gap 12 mmol/L; Blood Urea Nitrogen 12 mg/dL (9-20); Calcium 8.1 mg/dL (8.4-10.2); Carbon Dioxide 27 mmol/L (22-30); Chloride 102.2 mmol/L (98-107); Glucose 158 mg/dL (75-100); Potassium 3.6 mmol/L (3.6-5.0); Sodium 138 mmol/L (137-145)
[2017-02-24] MEDS: celeXA PO SCH (09:11)
[2017-02-24] MEDS: PERCOCET 5/325 PO PRN ×3 (09:11→23:27)
[2017-02-24] MEDS: ZOSYN/NS 4.5GM/100ML 4.5 GM/100 ML VIAL IV SCH ×3 (09:12→23:31)
[2017-02-24] MEDS: VANCOMYCIN 1,250 MG in NACL 0.9% 250ML 250 ML IV SCH ×3 (11:25→23:37)
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
[2017-02-24] MEDS: HABITROL TD SCH (16:50)
[2017-02-25 07:23] LABS: Hematocrit 43.8 % (35.5-45.6); Hemoglobin 14.8 gm/dl (11.8-15.2); Mean Corpuscular HGB Conc 34 % (32-34); Mean Corpuscular Hemoglobin 31 pg (28-32); Mean Corpuscular Volume 90 fl (84-94); Platelet Count 242 K/mm3 (140-440); Red Blood Count 4.86 M/mm3 (3.65-5.03); Red Cell Distribution Width 13.5 % (13.2-15.2); White Blood Count 7.2 K/mm3 (4.5-11.0)
[2017-02-25 07:42] LABS: Anion Gap 15 mmol/L; BUN/Creatinine Ratio 16.66; Blood Urea Nitrogen 10 mg/dL (9-20); Calcium 8.4 mg/dL (8.4-10.2); Carbon Dioxide 25 mmol/L (22-30); Chloride 104.1 mmol/L (98-107); Glucose 125 mg/dL (75-100); Sodium 140 mmol/L (137-145)
[2017-02-25] MEDS: NOVOLOG SUB-Q SCH ×2 (07:59→12:40)
[2017-02-25 08:27] VITALS: BP 148/80
[2017-02-25] MEDS: celeXA PO SCH ×2 (08:46→10:20)
[2017-02-25] MEDS: PERCOCET 5/325 PO PRN (08:46)
[2017-02-25] MEDS: HABITROL TD SCH ×2 (08:46→10:20)
[2017-02-25] MEDS: ZOSYN/NS 4.5GM/100ML 4.5 GM/100 ML VIAL IV SCH (08:54)
[2017-02-25] MEDS: VANCOMYCIN 1,250 MG in NACL 0.9% 250ML 250 ML IV SCH (08:56)
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
== END 2017-02-25 15:30 | disposition home or self-care (01) | DRG 871 ==
LOC: ED 19:09 → 3A 02-21 15:02 → EEVIPCON 02-21 15:02 → 3A 02-22 01:07
PROVIDERS: ADMIT Internal Medicine; ATTEND Internal Medicine
DX: A41.9 Sepsis, unspecified organism (principal); G92 Toxic encephalopathy; L03.113 Cellulitis of right upper limb; F11.20 Opioid dependence, uncomplicated; F15.20 Other stimulant dependence, uncomplicated; T43.621A Poisoning by amphetamines, accidental (unintentional), initial encounter; M83.9 Adult osteomalacia, unspecified; K40.90 Unilateral inguinal hernia, without obstruction or gangrene, not specified as recurrent; E11.65 Type 2 diabetes mellitus with hyperglycemia; J44.9 Chronic obstructive pulmonary disease, unspecified; F32.9 Major depressive disorder, single episode, unspecified; Y92.89 Other specified places as the place of occurrence of the external cause; F17.210 Nicotine dependence, cigarettes, uncomplicated; G89.29 Other chronic pain; S50.851A Superficial foreign body of right forearm, initial encounter; F41.1 Generalized anxiety disorder; Z91.14 Patient's other noncompliance with medication regimen
CPT/HCPCS: 36415; 71020; 74176; 80048; 80053; 80202; 80307; 80320; 81001; 82140; 82805; 82962; 83735; 84443; 85025; 85027; 85610; 85652; 86140; 87040; 87076; 87116; 87186; 90732; 93005; 93010; 94640; 96361; 96365; 96375; G0480; J0696; J1815; J2270; J2405; J2543; J3370; J7030; J7050

== ENCOUNTER 2018-11-23 10:17 | Inpatient (IN) | payer MEDICARE ==
[2018-11-23] MEDS ORDERED: ATROVENT IH ONE (10:44)
[2018-11-23] MEDS ORDERED: PROVENTIL IH ONE (10:44)
[2018-11-23] MEDS ORDERED: SOLU-Medrol IV ONE (10:46)
--- NOTE | 2018-11-23 10:52 | Emergency Department Report ---
HPI - General Chief Complaint: Dyspnea/Respdistress Time Seen by Provider: 11/23/18 10:38 - HPI HPI: Room 6 The patient is a 58-year-old male presenting with a chief complaint of shortness of breath. The patient states he's been thirsty and short of breath since yesterday. Patient is to call there is productive of white sputum for the past 2-3 days. Patient also admits to polyuria. Patient denies history of fever. The patient states he is not on oxygen at home Location: [See above] Duration: [See above] Quality: [See above] Severity: [See above] Modifying factors: [see above] Context: [see above] Mode of transportation: [not driving] ED Past Medical Hx - Past Medical History Hx CVA: Yes Hx Diabetes: Yes (noncompliant with meds) Hx Asthma: Yes Hx COPD: Yes Additional medical history: emphysema - Surgical History Additional Surgical History: finger; Arm; Leg surgery. "Brain surgery" - Family History Family history: no significant - Social History Smoking Status: Current Every Day Smoker (1 pack per day) Substance Use Type: None (denies illicit drug use) - Medications Home Medications: Home Medications Medication Instructions Recorded Confirmed Last Taken Type Acetaminophen [Acetaminophen TAB] 325 mg PO Q4H PRN #30 tablet 02/25/17 Unknown Rx Benzonatate [Tessalon Perles] 100 mg PO Q8H PRN #30 capsule 02/25/17 Unknown Rx Citalopram [celeXA] 10 mg PO QDAY #30 tablet 02/25/17 Unknown Rx Nicotine [Habitrol] 21 mg TD QDAY #14 patch 02/25/17 Unknown Rx levoFLOXacin [Levaquin TAB] 500 mg PO QDAY #10 tablet 02/25/17 Unknown Rx oxyCODONE /ACETAMINOPHEN [Percocet 1 tab PO Q6H PRN #30 tablet 02/25/17 Unknown Rx 5/325 mg] ED Review of Systems ROS: Stated complaint: SUJATHA Other details as noted in HPI Constitutional: denies: fever Eyes: denies: eye pain ENT: denies: throat pain Respiratory: shortness of breath Cardiovascular: denies: chest pain Endocrine: increased thirst, increased urine Gastrointestinal: denies: abdominal pain Genitourinary: frequency Musculoskeletal: denies: back pain Neurological: paresthesias (diabetic neuropathy) Physical Exam - Physical Exam Vital Signs: Vital Signs 11/23/18 11/23/18 10:29 10:30 Pulse Rate 110 H 110 H Respiratory 26 H 28 H Rate Blood Pressure 135/81 O2 Sat by Pulse 98 99 Oximetry Physical Exam: GENERAL: The patient is well-developed well-nourished []. [] HEENT: Normocephalic. Atraumatic. Extraocular motions are intact. Patient has moist mucous membranes. NECK: Supple. Trachea midline CHEST/LUNGS: Diminished diffusely. There is no respiratory distress noted. HEART/CARDIOVASCULAR: Regular. There is tachycardia. There is no gallop rub or murmur. ABDOMEN: Abdomen is soft, nontender. Patient has normal bowel sounds. There is no abdominal distention. SKIN: There is no rash. There is no edema. There is no diaphoresis. NEURO: The patient is awake, alert, and oriented. The patient is cooperative. The patient has no focal neurologic deficits. The patient has normal speech and gait. MUSCULOSKELETAL: There is no tenderness or deformity. There is no limitation range of motion. There is no evidence of acute injury. ED Course Vital Signs 11/23/18 11/23/18 10:29 10:30 Pulse Rate 110 H 110 H Respiratory 26 H 28 H Rate Blood Pressure 135/81 O2 Sat by Pulse 98 99 Oximetry ED Medical Decision Making - Lab Data Result diagrams: 11/23/18 10:59 11/23/18 10:59 Laboratory Tests 11/23/18 11/23/18 11/23/18 10:30 10:59 10:59 WBC 12.3 H RBC 4.67 Hgb 14.2 Hct 42.3 MCV 91 MCH 30 MCHC 34 RDW 13.7 Plt Count 402 Lymph % (Auto) 11.3 L [place] % (Auto) 7.7 H Eos % (Auto) 1.8 Baso % (Auto) 0.3 Lymph # 1.4 [place] # 0.9 H Eos # 0.2 Baso # 0.0 Seg Neutrophils % 78.9 H Seg Neutrophils # 9.8 H PT 13.2 INR 0.95 APTT 24.1 L POC ABG pH POC ABG pCO2 POC ABG pO2 POC ABG HCO3 POC ABG Total CO2 POC ABG O2 Sat POC ABG Base Excess VBG pH FiO2 Sodium Potassium Chloride Carbon Dioxide Anion Gap BUN Creatinine Estimated GFR BUN/Creatinine Ratio Glucose Calcium Total Bilirubin AST ALT Alkaline Phosphatase CK-MB (CK-2) Troponin T NT-Pro-B Natriuret Pep Total Protein Albumin Albumin/Globulin Ratio Urine Color Yellow Urine Turbidity Clear Urine pH 6.0 Ur Specific [place] 1.030 Urine Protein 30 mg/dl Urine Glucose (UA) >=500 Urine Ketones Neg Urine Blood Neg Urine Nitrite Neg Urine Bilirubin Neg Urine Urobilinogen 4.0 Ur Leukocyte Esterase Neg Urine WBC (Auto) 1.0 Urine RBC (Auto) < 1.0 Hyaline Casts 1 Urine Mucus Few 11/23/18 11/23/18 11/23/18 10:59 10:59 12:28 WBC RBC Hgb Hct MCV MCH MCHC RDW Plt Count Lymph % (Auto) [place] % (Auto) Eos % (Auto) Baso % (Auto) Lymph # [place] # Eos # Baso # Seg Neutrophils % Seg Neutrophils # PT INR APTT POC ABG pH 7.384 POC ABG pCO2 46.6 H POC ABG pO2 53 L POC ABG HCO3 27.9 POC ABG Total CO2 29 POC ABG O2 Sat 86 POC ABG Base Excess 3 VBG pH 7.395 FiO2 21 Sodium 138 Potassium 3.9 Chloride 99.0 Carbon Dioxide 25 Anion Gap 18 BUN 14 Creatinine 0.8 Estimated GFR > 60 BUN/Creatinine Ratio 18 Glucose 339 H Calcium 8.7 Total Bilirubin 0.50 AST 36 ALT 36 Alkaline Phosphatase 71 CK-MB (CK-2) 2.1 Troponin T < 0.010 NT-Pro-B Natriuret Pep 3093 H Total Protein 7.2 Albumin 2.9 L Albumin/Globulin Ratio 0.7 Urine Color Urine Turbidity Urine pH Ur Specific [place] Urine Protein Urine Glucose (UA) Urine Ketones Urine Blood Urine Nitrite Urine Bilirubin Urine Urobilinogen Ur Leukocyte Esterase Urine WBC (Auto) Urine RBC (Auto) Hyaline Casts Urine Mucus - EKG Data -: EKG Interpreted by Me EKG shows normal: sinus rhythm Rate: normal - EKG Data When compared to previous EKG there are: previous EKG unavailable Interpretation: nonspecific ST-T wave madhav - Radiology Data Radiology results: report reviewed (chest x-ray), image reviewed (chest x-ray) interpreted by me: Chest x-ray-no focal infiltrates, no pneumothorax [facility] [address] [place] [address] XRay Report Signed Patient: GISELL NINA MR#: [id number] : 1960 Acct:[id number] Age/Sex: 58 / M ADM Date: 11/23/18 Loc: ED Attending Dr: Ordering Physician: PANCHITO BUNN MD Date of Service: 11/23/18 Procedure(s): XR chest 1V ap Accession Number(s): [id number] cc: PANCHITO BUNN MD Fluoro Time In Minutes: PROCEDURE: XR CHEST 1V AP TECHNIQUE: Single AP view of the chest HISTORY: shortness of breath, hypoxia COMPARISONS: FINDINGS: Cardiomediastinal silhouette is unremarkable. No pulmonary infiltrate, effusion, or pneumothorax is seen. No focal osseous lesion is seen. IMPRESSION: No pulmonary infiltrates. This document is electronically signed by Kaleigh Garvey MD., November 23 2018 12:42:56 PM ET Transcribed By: [facility] Dictated By: KALEIGH GARVEY M.D. Electronically Authenticated By: KALEIGH GARVEY M.D. Signed Date/Time: 11/23/18 1245 DD/ 1127 TD/TT: 11/23/18 1127 - Differential Diagnosis COPD exacerbation, pneumonia, CHF, DKA, hyperglycemia Critical care attestation.: If time is entered above; I have spent that time in minutes in the direct care of this critically ill patient, excluding procedure time. ED Disposition Clinical Impression: Shortness of breath, Hypoxia, COPD exacerbation Disposition: OP ADMIT IP TO THIS HOSP Is pt being admited?: Yes Does the pt Need Aspirin: Yes Condition: Fair Instructions: Chronic Obstructive Pulmonary Disease (ED) Time of Disposition: 13:30 (Hospitalist notified (Dr Farias))
[2018-11-23] MEDS ORDERED: NORCO 5/325 PO ONE (10:54)
[2018-11-23] MEDS: MAGNESIUM SULFATE 2GM/50ML 2 GM/50 ML BAG IV ONE (11:53)
[2018-11-23 12:03] LABS: Basophils % (Auto) 0.3 % (0.0-1.8); Eosinophils # (Auto) 0.2 K/mm3 (0.0-0.4); Eosinophils % (Auto) 1.8 % (0.0-4.3); Hematocrit 42.3 % (35.5-45.6); Hemoglobin 14.2 gm/dl (11.8-15.2); Lymphocytes # (Auto) 1.4 K/mm3 (1.2-5.4); Lymphocytes % (Auto) 11.3 % (13.4-35.0); Mean Corpuscular HGB Conc 34 % (32-34); Mean Corpuscular Volume 91 fl (84-94); Monocytes # (Auto) 0.9 K/mm3 (0.0-0.8); Monocytes % (Auto) 7.7 % (0.0-7.3); Platelet Count 402 K/mm3 (140-440); Red Blood Count 4.67 M/mm3 (3.65-5.03); Red Cell Distribution Width 13.7 % (13.2-15.2)
[2018-11-23 12:25] LABS: Creatine Kinase MB 2.1 ng/mL (0.0-4.0)
[2018-11-23 12:26] LABS: Alanine Aminotransferase 36 units/L (7-56); Albumin 2.9 g/dL (3.9-5); BUN/Creatinine Ratio 18; Blood Urea Nitrogen 14 mg/dL (9-20); Calcium 8.7 mg/dL (8.4-10.2); Hemolysis Index 6
[2018-11-23 12:34] LABS: Bilirubin,Urine NEG (Negative); Blood,Urine NEG (Negative); Color,Urine Yellow (Yellow); Hyaline Casts,Urine 1 /LPF; Mucus,Urine FEW /HPF; RBC,Urine < 1.0 /HPF (0.0-6.0)
[2018-11-23 12:42] LABS: INR 0.95 (0.87-1.13)
[2018-11-23 12:43] LABS: Partial Thromboplastin Time 24.1 Sec. (24.2-36.6)
--- NOTE | 2018-11-23 12:45 | XRay Report ---
PROCEDURE: XR CHEST 1V AP TECHNIQUE: Single AP view of the chest HISTORY: shortness of breath, hypoxia COMPARISONS: FINDINGS: Cardiomediastinal silhouette is unremarkable. No pulmonary infiltrate, effusion, or pneumothorax is s een. No focal osseous lesion is seen. IMPRESSION: No pulmonary infiltrates. This document is electronically signed by aKleigh Garvey MD., November 23 2018 12:42:56 PM ET
--- NOTE | 2018-11-23 13:33 | History and Physical Report ---
History of Present Illness Chief complaint: I cant breathe History of present illness: 58 YO Male with Nicotine Dependence, DM, Methamphetamine Dependence, Medication Noncompliance presents to ED. Pt states that he has experienced shortness of breath over the past 3 days with persistent symptoms over the same time frame. Pt acknowledges increased productive cough with increased whitish sputum, decreased exercise tolerance, dypsnea on exertion, dypsnea at rest, as well as feeling tired and weak. EMS notified, and upon arrival the patient was found to be in distress and pt transported to [facility] ED. Pt seen and evaluated and found to have COPD Exacerbation secondary to Pneumonia, and complicated by Acute Hypoxemic Respiratory Failure, as well as CHF Decompensation. Cardiology consulted in ED. Pt initiated on Pneumoina and CHF protocols and admitted to telemetry. Pt denies fever, chills, CP, palpitations, NVD, Trauma, Skin rash, unilateral leg swelling, calf pain, or recent ill contacts. Past History Past Medical History: COPD, diabetes, stroke Past Surgical History: Other (Brain surgery) Social history: , smoking, other (Methamphetamine Dependence) Family history: diabetes Medications and Allergies Allergies Allergy/AdvReac Type Severity Reaction Status Date / Time No Known Allergies Allergy Unverified 02/20/17 19:15 Home Medications Medication Instructions Recorded Confirmed Last Taken Type Acetaminophen [Acetaminophen TAB] 325 mg PO Q4H PRN #30 tablet 02/25/17 Unknown Rx Benzonatate [Tessalon Perles] 100 mg PO Q8H PRN #30 capsule 02/25/17 Unknown Rx Citalopram [celeXA] 10 mg PO QDAY #30 tablet 02/25/17 Unknown Rx Nicotine [Habitrol] 21 mg TD QDAY #14 patch 02/25/17 Unknown Rx levoFLOXacin [Levaquin TAB] 500 mg PO QDAY #10 tablet 02/25/17 Unknown Rx oxyCODONE /ACETAMINOPHEN [Percocet 1 tab PO Q6H PRN #30 tablet 02/25/17 Unknown Rx 5/325 mg] Review of Systems Constitutional: no weight loss, no weight gain, no fever, no chills Ears, nose, mouth and throat: no ear pain, no ear discharge, no tinnitis, no decreased hearing, no nose pain Cardiovascular: shortness of breath, dyspnea on exertion, decreased exercise tolerance, no chest pain, no orthopnea, no palpitations Respiratory: cough, cough with sputum, excessive sputum, shortness of breath, no hemoptysis Gastrointestinal: no abdominal pain, no nausea, no vomiting, no diarrhea Genitourinary Male: no hematuria, no flank pain, no discharge, no urinary frequency, no urinary hesitancy Rectal: no pain, no incontinence, no bleeding Musculoskeletal: no neck stiffness, no neck pain, no shooting arm pain, no arm numbness/tingling, no low back pain Integumentary: no rash, no pruritis, no redness, no sores, no wounds Neurological: no transient paralysis, no paralysis, no weakness, no parathesias, no numbness Psychiatric: no anxiety, no memory loss, no change in sleep habits, no sleep disturbances, no insomnia, no hypersomnia Endocrine: no cold intolerance, no heat intolerance, no polyphagia, no excessive thirst, no polydipsia Hematologic/Lymphatic: no easy bruising, no easy bleeding, no lymphadenopathy, no lymphedema Allergic/Immunologic: no urticaria, no allergic rhinitis, no wheezing, no persistent infections, no anaphylaxis, no angioedema Exam - Constitutional Vitals: Temp Pulse Resp BP Pulse Ox 103 H 22 135/81 99 11/23/18 12:11 11/23/18 12:11 11/23/18 10:30 11/23/18 10:30 General appearance: Present: mild distress, cachectic - EENT Eyes: Present: PERRL ENT: hearing intact, clear oral mucosa - Neck Neck: Present: supple, normal ROM - Respiratory Respiratory effort: labored Respiratory: bilateral: CTA, diminished, rhonchi - Cardiovascular Heart Sounds: Present: S1 & S2. Absent: rub, click - Extremities Extremities: pulses symmetrical, No edema Peripheral Pulses: within normal limits - Abdominal General gastrointestinal: Present: soft, non-tender, non-distended, normal bowel sounds Male genitourinary: Present: normal - Integumentary Integumentary: Present: clear, warm, dry - Musculoskeletal Musculoskeletal: generalized weakness - Psychiatric Psychiatric: appropriate mood/affect, intact judgment & insight, memory intact - Neurologic Neurologic: CNII-XII intact, moves all extremities, no gait normal Results - Labs CBC & Chem 7: 11/23/18 10:59 11/23/18 10:59 Labs: Abnormal lab results 11/23/18 11/23/18 11/23/18 Range/Units 10:59 10:59 10:59 WBC 12.3 H (4.5-11.0) K/mm3 Lymph % (Auto) 11.3 L (13.4-35.0) % [place] % (Auto) 7.7 H (0.0-7.3) % [place] # 0.9 H (0.0-0.8) K/mm3 Seg Neutrophils % 78.9 H (40.0-70.0) % Seg Neutrophils # 9.8 H (1.8-7.7) K/mm3 APTT 24.1 L (24.2-36.6) Sec. POC ABG pCO2 (35-45) POC ABG pO2 (80-105) Glucose 339 H (75-100) mg/dL NT-Pro-B Natriuret Pep 3093 H (0-900) pg/mL Albumin 2.9 L (3.9-5) g/dL 11/23/18 Range/Units 12:28 WBC (4.5-11.0) K/mm3 Lymph % (Auto) (13.4-35.0) % [place] % (Auto) (0.0-7.3) % [place] # (0.0-0.8) K/mm3 Seg Neutrophils % (40.0-70.0) % Seg Neutrophils # (1.8-7.7) K/mm3 APTT (24.2-36.6) Sec. POC ABG pCO2 46.6 H (35-45) POC ABG pO2 53 L (80-105) Glucose (75-100) mg/dL NT-Pro-B Natriuret Pep (0-900) pg/mL Albumin (3.9-5) g/dL Assessment and Plan - Patient Problems (1) Pneumonia Current Visit: Yes Status: Acute Qualifiers: Laterality: right Lung location: lower lobe of lung Plan to address problem: Pneumonia protocol. IV antibiotic therapy, Chest x ray, nebulizer therapy, supplemental oxygen, blood cultures. (2) Respiratory failure Current Visit: Yes Status: Acute Qualifiers: Chronicity: acute Respiratory failure complication: hypoxia Qualified Co de(s): J96.01 - Acute respiratory failure with hypoxia Plan to address problem: Supplemental oxygen, nebulizer therapy, pulse oximetry, chest x ray, NIPPV as c linically indicated, ABG. (3) CHF (congestive heart failure) Current Visit: Yes Status: Acute Qualifiers: Heart failure type: diastolic Heart failure chronicity: acute Qualified Code(s): I50.31 - Acute diastolic (congestive) heart failure Plan to address problem: Admit to telemetry, Cardiology consulted in ED, Strict I/O, daily weight, monitor uop q shift, BNP, chest x ray. (4) COPD exacerbation Current Visit: Yes Status: Acute Plan to address problem: Supplemental oxygen, nebulizer therapy, IV steroid therapy, chest x ray, pulse oximetry, NIPPV as clinically indicated. (5) Nicotine dependence unspecified, with withdrawal Current Visit: Yes Status: Acute Plan to address problem: smoking cessation, supportive care. (6) DVT prophylaxis Current Visit: No Status: Acute Plan to address problem: SCD to BLE while in bed.
[2018-11-23] MEDS ORDERED: SODIUM CHLORIDE FLUSH SYRINGE 10 ML IV PRN (13:37)
[2018-11-23] MEDS ORDERED: ZOFRAN IV PRN (13:37)
[2018-11-23] MEDS ORDERED: PROVENTIL IH PRN (13:43)
[2018-11-23] MEDS ORDERED: TYLENOL PO PRN (13:47)
[2018-11-23] MEDS: HABITROL TD SCH (15:11)
[2018-11-23] MEDS: celeXA PO SCH (15:11)
[2018-11-23] MEDS: ROCEPHIN/NS 2 GM/100 ML 2 GM/100 ML BAG IV SCH (15:11)
[2018-11-23 15:22] LABS: Free T4 (Free Thyroxine) 1.56 ng/dL (0.76-1.46)
[2018-11-23] MEDS: PERCOCET 5/325 PO PRN ×2 (15:29→21:04)
[2018-11-23] MEDS ORDERED: D50W (25GM) Syringe IV PRN (15:33)
[2018-11-23] MEDS ORDERED: HumaLOG SUB-Q ONE (15:39)
[2018-11-23] MEDS: HumaLOG SUB-Q SCH ×3 (16:02→22:13)
[2018-11-23] MEDS: ZITHROMAX 500 MG in NACL 0.9% 250ML 250 ML IV SCH (16:02)
[2018-11-23] MEDS: TESSALON PERLES PO PRN (21:03)
[2018-11-23] MEDS: SODIUM CHLORIDE FLUSH SYRINGE 10 ML IV SCH (21:08)
[2018-11-24] MEDS: PERCOCET 5/325 PO PRN ×3 (04:35→21:37)
[2018-11-24] MEDS: MAGNESIUM SULFATE 2GM/50ML 2 GM/50 ML BAG IV ONE (05:43)
--- NOTE | 2018-11-24 07:44 | Cat Scan Report ---
PROCEDURE: CT ANGIOGRAM OF THE CHEST FOR PULMONARY EMBOLISM TECHNIQUE: Computerized axial tomographic angiography of the chest and pulmonary arteries was perfor med after the IV injection of iodinated nonionic contrast. The image data was postprocessed using max imum intensity projection (MIP) and 2-dimensional multiplanar reformatted (MPR) techniques. The exami nation is specifically tailored to the evaluation of the pulmonary arteries per clinical request. Au tomated exposure control, adjustment of mA and/or kV according to patient size, or iterative reconstr uction dose optimization techniques were utilized. CPT G9637, 78755 HISTORY: Shortness of breath R06.02, chest pain unspecified R07.9 , COMPARISONS: None . FINDINGS: Heart and pericardium: Normal. Thoracic aorta: There is no thoracic aortic aneurysm or dissection.. Pulmonary vasculature: There is no pulmonary embolism.. Lymph nodes: No enlarged thoracic lymph nodes. Lungs: There is moderate COPD. There is diffuse endobronchial thickening particularly at the lung ba ses. There are no infiltrates.. Pleural space: No effusion, thickening, or pneumothorax. Musculoskeletal structures: No significant abnormality. Upper abdominal structures: No significant abnormality. IMPRESSION: There is no thoracic aortic aneurysm or dissection.. There is no pulmonary embolism.. There is moderate COPD. There is diffuse endobronchial thickening particularly at the lung bases. The re are no infiltrates. This document is electronically signed by Amadou Costello MD., November 24 2018 07:42:31 AM ET
[2018-11-24 07:59] LABS: Basophils % (Auto) 0.1 % (0.0-1.8); Hematocrit 40.7 % (35.5-45.6); Hemoglobin 13.8 gm/dl (11.8-15.2); Lymphocytes # (Auto) 1.8 K/mm3 (1.2-5.4); Lymphocytes % (Auto) 15.2 % (13.4-35.0); Mean Corpuscular HGB Conc 34 % (32-34); Mean Corpuscular Volume 90 fl (84-94); Monocytes # (Auto) 0.8 K/mm3 (0.0-0.8); Platelet Count 411 K/mm3 (140-440); Red Cell Distribution Width 13.5 % (13.2-15.2)
[2018-11-24 08:22] LABS: BUN/Creatinine Ratio 25; Blood Urea Nitrogen 15 mg/dL (9-20); Calcium 8.5 mg/dL (8.4-10.2); Hemolysis Index 6
[2018-11-24] MEDS: HumaLOG SUB-Q SCH ×4 (08:47→21:39)
[2018-11-24] MEDS: HABITROL TD SCH (12:05)
[2018-11-24] MEDS: SODIUM CHLORIDE FLUSH SYRINGE 10 ML IV SCH ×2 (12:10→21:36)
[2018-11-24] MEDS: celeXA PO SCH (12:10)
[2018-11-24] MEDS: ROCEPHIN/NS 2 GM/100 ML 2 GM/100 ML BAG IV SCH (13:11)
--- NOTE | 2018-11-24 13:18 | Consultation ---
History of Present Illness Consult date: 11/24/18 Consult reason: congestive heart failure History of present illness: "56 year old male patient presented with shortness of breath. This chest x-ray shows no overt signs of pulmonary edema on CT the chest was negative for pulmonary embolism all thoracic aneurysm.. Past History Past Medical History: COPD, diabetes, stroke Past Surgical History: Other (Brain surgery) Social history: , smoking, other (Methamphetamine Dependence) Family history: diabetes Medications and Allergies Allergies Allergy/AdvReac Type Severity Reaction Status Date / Time No Known Allergies Allergy Unverified 02/20/17 19:15 Home Medications Medication Instructions Recorded Confirmed Last Taken Type Acetaminophen [Acetaminophen TAB] 325 mg PO Q4H PRN #30 tablet 02/25/17 Unknown Rx Benzonatate [Tessalon Perles] 100 mg PO Q8H PRN #30 capsule 02/25/17 Unknown Rx Citalopram [celeXA] 10 mg PO QDAY #30 tablet 02/25/17 Unknown Rx Nicotine [Habitrol] 21 mg TD QDAY #14 patch 02/25/17 Unknown Rx levoFLOXacin [Levaquin TAB] 500 mg PO QDAY #10 tablet 02/25/17 Unknown Rx oxyCODONE /ACETAMINOPHEN [Percocet 1 tab PO Q6H PRN #30 tablet 02/25/17 Unknown Rx 5/325 mg] Active Meds: Active Medications Acetaminophen (Tylenol) 650 mg PO Q4H PRN PRN Reason: Pain MILD(1-3)/Fever >100.5/GIBBONS Albuterol (Proventil) 2.5 mg IH Q4H PRN PRN Reason: Shortness Of Breath Benzonatate (Tessalon Perles) 100 mg PO Q8H PRN PRN Reason: Cough Last Admin: 11/23/18 21:03 Dose: 100 mg Documented by: Citalopram Hydrobromide (Celexa) 10 mg PO QDAY ROSETTA Last Admin: 11/24/18 12:10 Dose: 10 mg Documented by: Dextrose (D50w (25gm) Syringe) 50 ml IV PRN PRN PRN Reason: Hypoglycemia Azithromycin 500 mg/ Sodium (Chloride) 250 mls @ 250 mls/hr IV Q24H ROSETTA; Protocol Last Admin: 11/23/18 16:02 Dose: 250 mls/hr Documented by: Ceftriaxone Sodium (Rocephin/Ns 2 Gm/100 Ml) 2 gm in 100 mls @ 200 mls/hr IV Q24H [facility]; Protocol Last Admin: 11/23/18 15:11 Dose: 200 mls/hr Documented by: Insulin Human Lispro (Humalog) 0 unit SUB-Q ACHS [facility]; Protocol Last Admin: 11/24/18 08:47 Dose: 1 unit Documented by: Nicotine (Habitrol) 21 mg TD QDAY [facility] Last Admin: 11/24/18 12:05 Dose: 21 mg Documented by: Oxycodone/Acetaminophen (Percocet 5/325) 1 tab PO Q6H PRN PRN Reason: Pain, Moderate (4-6) Last Admin: 11/24/18 12:05 Dose: 1 tab Documented by: Sodium Chloride (Sodium Chloride Flush Syringe 10 Ml) 10 ml IV BID [facility] Last Admin: 11/24/18 12:10 Dose: 10 ml Documented by: Sodium Chloride (Sodium Chloride Flush Syringe 10 Ml) 10 ml IV PRN PRN PRN Reason: LINE FLUSH Review of Systems Constitutional: fatigue, weakness, no weight loss, no weight gain, no fever Ears, nose, mouth and throat: no dental pain, no mouth pain Cardiovascular: no chest pain, no orthopnea, no palpitations, no syncope, no dyspnea on exertion Respiratory: congestion, wheezing, pleurisy, no shortness of breath, no dyspnea on exertion Gastrointestinal: no abdominal pain, no nausea, no melena, no hematochezia Genitourinary Male: no dysuria, no hematuria, no flank pain, no discharge Rectal: no pain Integumentary: rash, pruritis, redness Neurological: no transient paralysis, no paralysis, no weakness, no headaches Psychiatric: no anxiety, no change in sleep habits, no sleep disturbances Endocrine: cold intolerance, no heat intolerance, no polyphagia, no excessive thirst, no polydipsia, no polyuria Allergic/Immunologic: no urticaria Physical Examination Vital Signs Pulse Resp Pulse Ox 110 H 26 H 98 11/23/18 10:29 11/23/18 10:29 11/23/18 10:29 General appearance: no acute distress, well-nourished HEENT: Positive: PERRL, Mucus Membranes Moist Neck: Positive: neck supple, trachea midline Cardiac: Positive: Reg Rate and Rhythm, S1/S2. Negative: Audible Murmur Lungs: Positive: clear to auscultation, Normal Breath Sounds Neuro: Positive: Grossly Intact Abdomen: Positive: Soft, Active Bowel Sounds. Negative: Tender, Distended Male genitourinary: Positive: normal Skin: Positive: Clear Incision: Cardiac Cath Site Musculoskeletal: No Pain, Normal Range of Motion Extremities: Present: normal. Absent: edema Results 11/24/18 06:42 11/24/18 06:42 CBC 11/24/18 Range/Units 06:42 WBC 11.6 H (4.5-11.0) K/mm3 RBC 4.50 (3.65-5.03) M/mm3 Hgb 13.8 (11.8-15.2) gm/dl Hct 40.7 (35.5-45.6) % Plt Count 411 (140-440) K/mm3 Lymph # 1.8 (1.2-5.4) K/mm3 [place] # 0.8 (0.0-0.8) K/mm3 Eos # 0.0 (0.0-0.4) K/mm3 Baso # 0.0 (0.0-0.1) K/mm3 Comprehensive Metabolic Panel 11/24/18 Range/Units 06:42 Sodium 136 L (137-145) mmol/L Potassium 4.3 (3.6-5.0) mmol/L Chloride 99.7 (98-107) mmol/L Carbon Dioxide 28 (22-30) mmol/L BUN 15 (9-20) mg/dL Creatinine 0.6 L (0.8-1.5) mg/dL Glucose 257 H (75-100) mg/dL Calcium 8.5 (8.4-10.2) mg/dL EKG interpretations - Telemetry EKG Rhythm: Sinus Rhythm Assessment and Plan 1. Shortness of breath 2. Chronic obstructive pulmonary disease 3. Type 2 diabetes mellitus 4. History of cerebral vascular accident 5. Polysubstance abuse Plan Cardiac-[place] stable no overt signs of decompensated CHF we will obtain an echocardiogram to assess global function
--- NOTE | 2018-11-24 13:46 | Progress Note ---
Assessment and Plan Assessment and plan: 58 YO Male with Nicotine Dependence, DM, Methamphetamine Dependence, Medication Noncompliance presents to ED. Pt states that he has experienced shortness of breath over the past 3 days with persistent symptoms over the same time frame. Pt acknowledges increased productive cough with increased whitish sputum, decreased exercise tolerance, dypsnea on exertion, dypsnea at rest, as well as feeling tired and weak. EMS notified, and upon arrival the patient was found to be in distress and pt transported to [facility] ED. Pt seen and evaluated and found to have COPD Exacerbation secondary to Pneumonia, and complicated by Acute Hypoxemic Respiratory Failure, as well as CHF Decompensation. Cardiology consulted in ED. Pt initiated on Pneumoina and CHF protocols and admitted to telemetry. Pt denies fever, chills, CP, palpitations, NVD, Trauma, Skin rash, unilateral leg swelling, calf pain, or recent ill contacts. CTA chest reviewed showed some moderate PD with no infiltrates Assessment shows no infiltrates also Recent CVA per the patient and procedure done at [facility]- Request records States non complaint with meds Ambulates with walker- PT/OT consult as patient appears very decompensated compliance counselling wound care consult to evaluate lower ext has retained sutures from [facility] per patient social worker health services/case management consult' malnutrition- emergency crew supervisor consult - Patient Problems (1) Pneumonia Current Visit: Yes Status: Acute Qualifiers: Laterality: right Lung location: lower lobe of lung Plan to address problem: Pneumonia protocol. IV antibiotic therapy, nebulizer therapy, supplemental oxygen, blood cultures. doubt pneumonia. But we'll continue to monitor. (2) Respiratory failure Current Visit: Yes Status: Acute Qualifiers: Chronicity: acute Respiratory failure complication: hypoxia Qualified Code(s): J96.01 - Acute respiratory failure with hypoxia Plan to address problem: Supplemental oxygen, nebulizer therapy, pulse oximetry, NIPPV as clinically indicated, ABG. (3) CHF (congestive heart failure) Current Visit: Yes Status: Acute Qualifiers: Heart failure type: diastolic Heart failure chronicity: acute Qualified Code(s): I50.31 - Acute diastolic (congestive) heart failure Plan to address problem: Admit to telemetry, Cardiology consulted in ED, Strict I/O, daily weight, monitor uop q shift, BNP, chest x ray. (4) COPD exacerbation Current Visit: Yes Status: Acute Plan to address problem: Supplemental oxygen, nebulizer therapy, IV steroid therapy, chest x ray, pulse oximetry, NIPPV as clinically indicated. (5) Nicotine dependence unspecified, with withdrawal Current Visit: Yes Status: Acute Plan to address problem: smoking cessation, supportive care. (6) DVT prophylaxis Current Visit: No Status: Acute Plan to address problem: SCD to BLE while in bed. History Interval history: Patient's on exam in no acute distress resting comfortably no adverse events reported by nursing staff Hospitalist Physical - Physical exam Narrative exam: VITAL SIGNS: Reviewed. GENERAL: The patient appeared clinically ill otherwise with marked cachexia and temporal wasting, Vital signs as documented. HEAD: No signs of head trauma. EYES: Pupils are equal. Extraocular motions intact. EARS: Hearing grossly intact. MOUTH: Oropharynx is normal. NECK: No adenopathy, no JVD. CHEST: Chest with clear breath sounds bilaterally. No wheezes, rales, or rhonchi. CARDIAC: Regular rate and rhythm. S1 and S2, without murmurs, gallops, or rubs. VASCULAR: No Edema. Peripheral pulses normal and equal in all extremities. ABDOMEN: Soft, non tender and non distended. No rebound or guarding, and no masses palpated. Bowel Sounds normal. MUSCULOSKELETAL: Good range of motion of all major joints. Extremities without clubbing, cyanosis or edema. NEUROLOGIC EXAM: Alert and oriented x 3 No focal sensory or strength deficits. Speech examination but with a high pH done on normal localization carotids patient secondary to recent surgery. Follows commands. PSYCHIATRIC: Mood normal. SKIN: No rash or lesions. - Constitutional Vitals: Temp Pulse Resp BP Pulse Ox 98.0 F 83 18 106/62 92 11/24/18 09:52 11/24/18 09:51 11/24/18 10:00 11/24/18 09:51 11/24/18 10:00 General appearance: Present: no acute distress, well-nourished Results - Labs CBC & Chem 7: 11/25/18 06:05 11/25/18 06:05 Labs: Laboratory Last Values WBC 11.6 K/mm3 (4.5-11.0) H 11/24/18 06:42 RBC 4.50 M/mm3 (3.65-5.03) 11/24/18 06:42 Hgb 13.8 gm/dl (11.8-15.2) 11/24/18 06:42 Hct 40.7 % (35.5-45.6) 11/24/18 06:42 MCV 90 fl (84-94) 11/24/18 06:42 MCH 31 pg (28-32) 11/24/18 06:42 MCHC 34 % (32-34) 11/24/18 06:42 RDW 13.5 % (13.2-15.2) 11/24/18 06:42 Plt Count 411 K/mm3 (140-440) 11/24/18 06:42 Lymph % (Auto) 15.2 % (13.4-35.0) 11/24/18 06:42 [place] % (Auto) 7.0 % (0.0-7.3) 11/24/18 06:42 Eos % (Auto) 0.0 % (0.0-4.3) 11/24/18 06:42 Baso % (Auto) 0.1 % (0.0-1.8) 11/24/18 06:42 Lymph # 1.8 K/mm3 (1.2-5.4) 11/24/18 06:42 [place] # 0.8 K/mm3 (0.0-0.8) 11/24/18 06:42 Eos # 0.0 K/mm3 (0.0-0.4) 11/24/18 06:42 Baso # 0.0 K/mm3 (0.0-0.1) 11/24/18 06:42 Seg Neutrophils % 77.7 % (40.0-70.0) H 11/24/18 06:42 Seg Neutrophils # 9.0 K/mm3 (1.8-7.7) H 11/24/18 06:42 PT 13.2 Sec. (12.2-14.9) 11/23/18 10:59 INR 0.95 (0.87-1.13) 11/23/18 10:59 APTT 24.1 Sec. (24.2-36.6) L 11/23/18 10:59 POC ABG pH 7.384 (7.35-7.45) 11/23/18 12:28 POC ABG pCO2 46.6 (35-45) H 11/23/18 12:28 POC ABG pO2 53 (80-105) L 11/23/18 12:28 POC ABG HCO3 27.9 (22-26 mml/L) 11/23/18 12:28 POC ABG Total CO2 29 (23-27mmol/L) 11/23/18 12:28 POC ABG O2 Sat 86 11/23/18 12:28 POC ABG Base Excess 3 ((-2) - (+3)mmol/L) 11/23/18 12:28 VBG pH 7.395 (7.320-7.420) 11/23/18 10:59 FiO2 21 % 11/23/18 12:28 Sodium 136 mmol/L (137-145) L 11/24/18 06:42 Potassium 4.3 mmol/L (3.6-5.0) 11/24/18 06:42 Chloride 99.7 mmol/L (98-107) 11/24/18 06:42 Carbon Dioxide 28 mmol/L (22-30) 11/24/18 06:42 Anion Gap 13 mmol/L 11/24/18 06:42 BUN 15 mg/dL (9-20) 11/24/18 06:42 Creatinine 0.6 mg/dL (0.8-1.5) L 11/24/18 06:42 Estimated GFR > 60 ml/min 11/24/18 06:42 BUN/Creatinine Ratio 25 % 11/24/18 06:42 Glucose 257 mg/dL (75-100) H 11/24/18 06:42 POC Glucose 129 (70-105) H 11/24/18 12:22 Ketones Quantitative Negative (Negative) 11/23/18 10:59 Calcium 8.5 mg/dL (8.4-10.2) 11/24/18 06:42 Magnesium 1.80 mg/dL (1.7-2.3) 11/23/18 14:24 Total Bilirubin 0.50 mg/dL (0.1-1.2) 11/23/18 10:59 AST 36 units/L (5-40) 11/23/18 10:59 ALT 36 units/L (7-56) 11/23/18 10:59 Alkaline Phosphatase 71 units/L (35-129) 11/23/18 10:59 Total Creatine Kinase < 7 units/L (55-170) L 11/23/18 10:59 CK-MB (CK-2) 2.1 ng/mL (0.0-4.0) 11/23/18 10:59 CK-MB (CK-2) Rel Index 0.0 (0-4) 11/23/18 10:59 Troponin T < 0.010 ng/mL (0.00-0.029) 11/23/18 10:59 NT-Pro-B Natriuret Pep 3093 pg/mL (0-900) H 11/23/18 10:59 Total Protein 7.2 g/dL (6.3-8.2) 11/23/18 10:59 Albumin 2.9 g/dL (3.9-5) L 11/23/18 10:59 Albumin/Globulin Ratio 0.7 % 11/23/18 10:59 TSH 0.318 mlU/mL (0.270-4.200) 11/23/18 14:28 Free T4 1.56 ng/dL (0.76-1.46) H 11/23/18 14:28 Urine Color Yellow (Yellow) 11/23/18 10:30 Urine Turbidity Clear (Clear) 11/23/18 10:30 Urine pH 6.0 (5.0-7.0) 11/23/18 10:30 Ur Specific [place] 1.030 (1.003-1.030) 11/23/18 10:30 Urine Protein 30 mg/dl mg/dL (Negative) 11/23/18 10:30 Urine Glucose (UA) >=500 mg/dL (Negative) 11/23/18 10:30 Urine Ketones Neg mg/dL (Negative) 11/23/18 10:30 Urine Blood Neg (Negative) 11/23/18 10:30 Urine Nitrite Neg (Negative) 11/23/18 10:30 Urine Bilirubin Neg (Negative) 11/23/18 10:30 Urine Urobilinogen 4.0 mg/dL (<2.0) 11/23/18 10:30 Ur Leukocyte Esterase Neg (Negative) 11/23/18 10:30 Urine WBC (Auto) 1.0 /HPF (0.0-6.0) 11/23/18 10:30 Urine RBC (Auto) < 1.0 /HPF (0.0-6.0) 11/23/18 10:30 Hyaline Casts 1 /LPF 11/23/18 10:30 Urine Mucus Few /HPF 11/23/18 10:30 Active Medications - Current Medications Current Medications: Generic Name Dose Route Start Last Admin Trade Name Freq PRN Reason Stop Dose Admin Acetaminophen 650 mg 11/23/18 13:37 Tylenol PO Q4H PRN Pain MILD(1-3)/Fever >100.5/GIB[place]ONS Albuterol 2.5 mg 11/23/18 13:43 Proventil IH Q4H PRN Shortness Of Breath Benzonatate 100 mg 11/23/18 13:47 11/23/18 21:03 Tessalon Perles PO 100 mg Q8H PRN Administration Cough Citalopram Hydrobromide 10 mg 11/23/18 15:00 11/24/18 12:10 Celexa PO 10 mg QDAY ROSETTA Administration Dextrose 50 ml 11/23/18 15:33 D50w (25gm) Syringe IV PRN PRN Hypoglycemia Azithromycin 500 mg/ Sodium 250 mls @ 250 mls/hr 11/23/18 15:00 11/23/18 16:02 Chloride IV 250 mls/hr Q24H ROSETTA Administration Protocol Ceftriaxone Sodium 2 gm in 100 mls @ 200 mls/hr 11/23/18 15:00 11/23/18 15:11 Rocephin/Ns 2 Gm/100 Ml IV 200 mls/hr Q24H ROSETTA Administration Protocol Insulin Human Lispro 0 unit 11/24/18 07:30 11/24/18 08:47 Humalog SUB-Q 1 unit ACHS ROSETTA Administration Protocol Nicotine 21 mg 11/23/18 15:00 11/24/18 12:05 Habitrol TD 21 mg QDAY ROSETTA Administration Oxycodone/Acetaminophen 1 tab 11/23/18 13:43 11/24/18 12:05 Percocet 5/325 PO 1 tab Q6H PRN Administration Pain, Moderate (4-6) Sodium Chloride 10 ml 11/23/18 22:00 11/24/18 12:10 Sodium Chloride Flush Syringe 10 Ml IV 10 ml BID ROSETTA Administration Sodium Chloride 10 ml 11/23/18 13:37 Sodium Chloride Flush Syringe 10 Ml IV PRN PRN LINE FLUSH
[2018-11-24] MEDS: ZITHROMAX 500 MG in NACL 0.9% 250ML 250 ML IV SCH (16:12)
[2018-11-24] MEDS: TYLENOL PO PRN (16:50)
[2018-11-25] MEDS: PERCOCET 5/325 PO PRN ×3 (05:29→22:23)
[2018-11-25 06:19] LABS: Hematocrit 41.6 % (35.5-45.6); Hemoglobin 14.1 gm/dl (11.8-15.2); Mean Corpuscular HGB Conc 34 % (32-34); Mean Corpuscular Volume 91 fl (84-94); Platelet Count 400 K/mm3 (140-440); Red Blood Count 4.59 M/mm3 (3.65-5.03)
[2018-11-25 06:42] LABS: BUN/Creatinine Ratio 23; Blood Urea Nitrogen 16 mg/dL (9-20); Calcium 8.8 mg/dL (8.4-10.2); Hemolysis Index 11
[2018-11-25] MEDS: HABITROL TD SCH (09:15)
[2018-11-25] MEDS: HumaLOG SUB-Q SCH ×4 (09:16→22:24)
[2018-11-25] MEDS: celeXA PO SCH (09:16)
[2018-11-25] MEDS: SODIUM CHLORIDE FLUSH SYRINGE 10 ML IV SCH ×2 (09:20→22:25)
--- NOTE | 2018-11-25 14:23 | Progress Note ---
Assessment and Plan - Patient Problems (1) Shortness of breath Current Visit: Yes Status: Acute Plan to address problem: Patient is a 58-year-old man who was admitted with symptoms of shortness of breath. There was no chest pain, there was no lower extremity edema. Chest x- ray revealed changes of COPD, no interstitial edema or heart failure. EKG is in normal sinus rhythm with no acute ST or T-wave abnormalities, essentially a benign ECG. Echocardiogram does reveal a dilated cardiomyopathy with left ventricular ejection fraction 15-20%, chronicity is uncertain. Patient is a poor historian. Most notable finding on exam is that patient appears emaciated, currently weighs only 63 kg. He states that he has had unexplained weight loss for at least 6 months. (2) Dilated cardiomyopathy Current Visit: Yes Status: Acute Plan to address problem: Patient is a 58-year-old man who was admitted with symptoms of shortness of breath. There was no chest pain, there was no lower extremity edema. Chest x- ray revealed changes of COPD, no interstitial edema or heart failure. EKG is in normal sinus rhythm with no acute ST or T-wave abnormalities, essentially a benign ECG. Echocardiogram does reveal a dilated cardiomyopathy with left ventricular ejection fraction 15-20%, chronicity is uncertain. Patient is a poor historian. Most notable finding on exam is that patient appears emaciated, currently weighs only 63 kg. He states that he has had unexplained weight loss for at least 6 months. We will start afterload agents, beta blockers and oral antiplatelet therapy. Will defer to internal medicine for workup and management of the patient's unexplained weight loss and cachexia. Subjective Date of service: 11/25/18 Interval history: Patient is a 58-year-old man who was admitted with symptoms of shortness of breath. There was no chest pain, there was no lower extremity edema. Chest x- ray revealed changes of COPD, no interstitial edema or heart failure. EKG is in normal sinus rhythm with no acute ST or T-wave abnormalities, essentially a b enign ECG. Echocardiogram does reveal a dilated cardiomyopathy with left ventricular ejection fraction 15-20%, chronicity is uncertain. Patient is a poor historian. Most notable finding on exam is that patient appears emaciated, currently weighs only 63 kg. He states that he has had unexplained weight loss for at least 6 months. Objective Vital Signs Temp Pulse Resp Resp BP Pulse Ox 11/25/18 10:00 18 97 11/25/18 05:29 20 11/25/18 03:58 98.0 F 84 20 123/78 93 11/25/18 03:10 95 11/24/18 23:29 97.8 F 75 20 133/81 92 11/24/18 23:00 97 H 11/24/18 22:00 20 98 11/24/18 21:37 20 11/24/18 19:56 98.0 F 84 20 108/65 90 11/24/18 18:39 75 18 119/67 91 11/24/18 18:38 98.2 F - Physical Examination General: Cachectic HEENT: Positive: PERRL, Mucus Membranes Moist Neck: Positive: neck supple, trachea midline Cardiac: Positive: Reg Rate and Rhythm Lungs: Positive: Decreased Breath Sounds Neuro: Positive: Grossly Intact Abdomen: Positive: Soft, Active Bowel Sounds. Negative: Tender, Distended Skin: Positive: Clear Incision: Cardiac Cath Site Musculoskeletal: No Pain, Normal Range of Motion Extremities: Present: normal. Absent: edema - Labs and Meds CBC 11/25/18 Range/Units 06:05 WBC 8.5 (4.5-11.0) K/mm3 RBC 4.59 (3.65-5.03) M/mm3 Hgb 14.1 (11.8-15.2) gm/dl Hct 41.6 (35.5-45.6) % Plt Count 400 (140-440) K/mm3 Comprehensive Metabolic Panel 11/25/18 Range/Units 06:05 Sodium 137 (137-145) mmol/L Potassium 4.4 (3.6-5.0) mmol/L Chloride 100.0 (98-107) mmol/L Carbon Dioxide 28 (22-30) mmol/L BUN 16 (9-20) mg/dL Creatinine 0.7 L (0.8-1.5) mg/dL Glucose 202 H (75-100) mg/dL Calcium 8.8 (8.4-10.2) mg/dL
[2018-11-25] MEDS: ZESTRIL PO SCH (15:44)
[2018-11-25] MEDS: LASIX PO SCH (15:44)
[2018-11-25] MEDS: HALFPRIN EC PO SCH (15:44)
[2018-11-25] MEDS: ALDACTONE PO SCH (15:44)
[2018-11-25] MEDS: COREG PO SCH ×2 (15:45→22:22)
[2018-11-25] MEDS: ROCEPHIN/NS 2 GM/100 ML 2 GM/100 ML BAG IV SCH (15:49)
[2018-11-25] MEDS: ZITHROMAX 500 MG in NACL 0.9% 250ML 250 ML IV SCH (17:07)
--- NOTE | 2018-11-25 17:33 | Progress Note ---
Assessment and Plan Assessment and plan: 58 YO Male with Nicotine Dependence, DM, Methamphetamine Dependence, Medication Noncompliance presents to ED. Pt states that he has experienced shortness of breath over the past 3 days with persistent symptoms over the same time frame. Pt acknowledges increased productive cough with increased whitish sputum, decreased exercise tolerance, dypsnea on exertion, dypsnea at rest, as well as feeling tired and weak. EMS notified, and upon arrival the patient was found to be in distress and pt transported to [facility] ED. Pt seen and evaluated and found to have COPD Exacerbation secondary to Pneumonia, and complicated by Acute Hypoxemic Respiratory Failure, as well as CHF Decompensation. Cardiology consulted in ED. Pt initiated on Pneumoina and CHF protocols and admitted to telemetry. Pt denies fever, chills, CP, palpitations, NVD, Trauma, Skin rash, unilateral leg swelling, calf pain, or recent ill contacts. * CTA chest reviewed showed some moderate COPD with no infiltrates * Unexplained weight loss per patient documented by Cardiology, Patient poor hx, also claimed admission at [facility] and had brain surgery for CVA which later led to prolonged hospitalization and weight loss. 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% ON Echo Tobacco use disorder Severe protien calorie malnutrition with severe cachecxia Continue supportive care with oxygen Recommend outpatient age appropraite cancer screening in light of weight loss- P t verbalized understanding Awaiting Wound care review of left foot lesion Cardiology input noted, continue optimizing med management - BB, Antiplatelet and afterload agents compliance counselling social sciences department chair/case management consult' malnutrition- bench technician consult DVT/GI prophy Plan discussed with the patient in detail History Interval history: Patient's on exam in no acute distress resting comfortably no adverse events reported by nursing staff. States tolerating diet Hospitalist Physical - Physical exam Narrative exam: VITAL SIGNS: Reviewed. GENERAL: The patient appeared clinically ill otherwise with marked cachexia and temporal wasting, Vital signs as documented. HEAD: No signs of head trauma. EYES: Pupils are equal. Extraocular motions intact. EARS: Hearing grossly intact. MOUTH: Oropharynx is normal. NECK: No adenopathy, no JVD. CHEST: Chest with clear breath sounds bilaterally. No wheezes, rales, or rhonchi. CARDIAC: Regular rate and rhythm. S1 and S2, without murmurs, gallops, or rubs. VASCULAR: No Edema. Peripheral pulses normal and equal in all extremities. ABDOMEN: Soft, non tender and non distended. No rebound or guarding, and no masses palpated. Bowel Sounds normal. MUSCULOSKELETAL: Good range of motion of all major joints. Extremities without clubbing, cyanosis or edema. NEUROLOGIC EXAM: Alert and oriented x 3 No focal sensory or strength deficits. Speech examination but with a high pH done on normal localization carotids patient secondary to recent surgery. Follows commands. PSYCHIATRIC: Mood normal. SKIN: No rash or lesions. - Constitutional Vitals: Temp Pulse Resp BP Pulse Ox 98.0 F 78 18 138/84 97 11/25/18 03:58 11/25/18 15:00 11/25/18 10:00 11/25/18 15:44 11/25/18 10:00 General appearance: Present: no acute distress, well-nourished Results - Labs CBC & Chem 7: 11/25/18 06:05 11/25/18 06:05 Labs: Laboratory Last Values WBC 8.5 K/mm3 (4.5-11.0) 11/25/18 06:05 RBC 4.59 M/mm3 (3.65-5.03) 11/25/18 06:05 Hgb 14.1 gm/dl (11.8-15.2) 11/25/18 06:05 Hct 41.6 % (35.5-45.6) 11/25/18 06:05 MCV 91 fl (84-94) 11/25/18 06:05 MCH 31 pg (28-32) 11/25/18 06:05 MCHC 34 % (32-34) 11/25/18 06:05 RDW 14.0 % (13.2-15.2) 11/25/18 06:05 Plt Count 400 K/mm3 (140-440) 11/25/18 06:05 Lymph % (Auto) 15.2 % (13.4-35.0) 11/24/18 06:42 [place] % (Auto) 7.0 % (0.0-7.3) 11/24/18 06:42 Eos % (Auto) 0.0 % (0.0-4.3) 11/24/18 06:42 Baso % (Auto) 0.1 % (0.0-1.8) 11/24/18 06:42 Lymph # 1.8 K/mm3 (1.2-5.4) 11/24/18 06:42 [place] # 0.8 K/mm3 (0.0-0.8) 11/24/18 06:42 Eos # 0.0 K/mm3 (0.0-0.4) 11/24/18 06:42 Baso # 0.0 K/mm3 (0.0-0.1) 11/24/18 06:42 Seg Neutrophils % 77.7 % (40.0-70.0) H 11/24/18 06:42 Seg Neutrophils # 9.0 K/mm3 (1.8-7.7) H 11/24/18 06:42 PT 13.2 Sec. (12.2-14.9) 11/23/18 10:59 INR 0.95 (0.87-1.13) 11/23/18 10:59 APTT 24.1 Sec. (24.2-36.6) L 11/23/18 10:59 POC ABG pH 7.384 (7.35-7.45) 11/23/18 12:28 POC ABG pCO2 46.6 (35-45) H 11/23/18 12:28 POC ABG pO2 53 (80-105) L 11/23/18 12:28 POC ABG HCO3 27.9 (22-26 mml/L) 11/23/18 12:28 POC ABG Total CO2 29 (23-27mmol/L) 11/23/18 12:28 POC ABG O2 Sat 86 11/23/18 12:28 POC ABG Base Excess 3 ((-2) - (+3)mmol/L) 11/23/18 12:28 VBG pH 7.395 (7.320-7.420) 11/23/18 10:59 FiO2 21 % 11/23/18 12:28 Sodium 137 mmol/L (137-145) 11/25/18 06:05 Potassium 4.4 mmol/L (3.6-5.0) 11/25/18 06:05 Chloride 100.0 mmol/L (98-107) 11/25/18 06:05 Carbon Dioxide 28 mmol/L (22-30) 11/25/18 06:05 Anion Gap 13 mmol/L 11/25/18 06:05 BUN 16 mg/dL (9-20) 11/25/18 06:05 Creatinine 0.7 mg/dL (0.8-1.5) L 11/25/18 06:05 Estimated GFR > 60 ml/min 11/25/18 06:05 BUN/Creatinine Ratio 23 % 11/25/18 06:05 Glucose 202 mg/dL (75-100) H 11/25/18 06:05 POC Glucose 130 (70-105) H 11/25/18 11:50 Ketones Quantitative Negative (Negative) 11/23/18 10:59 Calcium 8.8 mg/dL (8.4-10.2) 11/25/18 06:05 Magnesium 1.80 mg/dL (1.7-2.3) 11/23/18 14:24 Total Bilirubin 0.50 mg/dL (0.1-1.2) 11/23/18 10:59 AST 36 units/L (5-40) 11/23/18 10:59 ALT 36 units/L (7-56) 11/23/18 10:59 Alkaline Phosphatase 71 units/L (35-129) 11/23/18 10:59 Total Creatine Kinase < 7 units/L (55-170) L 11/23/18 10:59 CK-MB (CK-2) 2.1 ng/mL (0.0-4.0) 11/23/18 10:59 CK-MB (CK-2) Rel Index 0.0 (0-4) 11/23/18 10:59 Troponin T < 0.010 ng/mL (0.00-0.029) 11/23/18 10:59 NT-Pro-B Natriuret Pep 3093 pg/mL (0-900) H 11/23/18 10:59 Total Protein 7.2 g/dL (6.3-8.2) 11/23/18 10:59 Albumin 2.9 g/dL (3.9-5) L 11/23/18 10:59 Albumin/Globulin Ratio 0.7 % 11/23/18 10:59 TSH 0.318 mlU/mL (0.270-4.200) 11/23/18 14:28 Free T4 1.56 ng/dL (0.76-1.46) H 11/23/18 14:28 Urine Color Yellow (Yellow) 11/23/18 10:30 Urine Turbidity Clear (Clear) 11/23/18 10:30 Urine pH 6.0 (5.0-7.0) 11/23/18 10:30 Ur Specific [place] 1.030 (1.003-1.030) 11/23/18 10:30 Urine Protein 30 mg/dl mg/dL (Negative) 11/23/18 10:30 Urine Glucose (UA) >=500 mg/dL (Negative) 11/23/18 10:30 Urine Ketones Neg mg/dL (Negative) 11/23/18 10:30 Urine Blood Neg (Negative) 11/23/18 10:30 Urine Nitrite Neg (Negative) 11/23/18 10:30 Urine Bilirubin Neg (Negative) 11/23/18 10:30 Urine Urobilinogen 4.0 mg/dL (<2.0) 11/23/18 10:30 Ur Leukocyte Esterase Neg (Negative) 11/23/18 10:30 Urine WBC (Auto) 1.0 /HPF (0.0-6.0) 11/23/18 10:30 Urine RBC (Auto) < 1.0 /HPF (0.0-6.0) 11/23/18 10:30 Hyaline Casts 1 /LPF 11/23/18 10:30 Urine Mucus Few /HPF 11/23/18 10:30 Active Medications - Current Medications Current Medications: Generic Name Dose Route Start Last Admin Trade Name Freq PRN Reason Stop Dose Admin Acetaminophen 650 mg 11/23/18 13:37 11/24/18 16:50 Tylenol PO 650 mg Q4H PRN Administration Pain MILD(1-3)/Fever >100.5/[place] Albuterol 2.5 mg 11/23/18 13:43 Proventil IH Q4H PRN Shortness Of Breath Aspirin 81 mg 11/25/18 15:00 11/25/18 15:44 Halfprin Ec PO 81 mg QDAY ROSETTA Administration Benzonatate 100 mg 11/23/18 13:47 11/23/18 21:03 Tessalon Perles PO 100 mg Q8H PRN Administration Cough Carvedilol 3.125 mg 11/25/18 15:00 11/25/18 15:45 Coreg PO 3.125 mg BID ROSETTA Administration Citalopram Hydrobromide 10 mg 11/23/18 15:00 11/25/18 09:16 Celexa PO 10 mg QDAY ROSETTA Administration Dextrose 50 ml 11/23/18 15:33 D50w (25gm) Syringe IV PRN PRN Hypoglycemia Furosemide 20 mg 11/25/18 15:00 11/25/18 15:44 Lasix PO 20 mg QDAY ROSETTA Administration Azithromycin 500 mg/ Sodium 250 mls @ 250 mls/hr 11/23/18 15:00 11/25/18 17:07 Chloride IV 250 mls/hr Q24H ROSETTA Administration Protocol Ceftriaxone Sodium 2 gm in 100 mls @ 200 mls/hr 11/23/18 15:00 11/25/18 15:49 Rocephin/Ns 2 Gm/100 Ml IV 200 mls/hr Q24H ROSETTA Administration Protocol Insulin Human Lispro 0 unit 11/24/18 07:30 11/25/18 12:19 Humalog SUB-Q Not Given [facility] Protocol Lisinopril 5 mg 11/25/18 15:00 11/25/18 15:44 Zestril PO 5 mg QDAY ROSETTA Administration Nicotine 21 mg 11/23/18 15:00 11/25/18 09:15 Habitrol TD 21 mg QDAY ROSETTA Administration Oxycodone/Acetaminophen 1 tab 11/23/18 13:43 11/25/18 15:44 Percocet 5/325 PO 1 tab Q6H PRN Administration Pain, Moderate (4-6) Sodium Chloride 10 ml 11/23/18 22:00 11/25/18 09:20 Sodium Chloride Flush Syringe 10 Ml IV 10 ml BID ROSETTA Administration Sodium Chloride 10 ml 11/23/18 13:37 Sodium Chloride Flush Syringe 10 Ml IV PRN PRN LINE FLUSH Spironolactone 25 mg 11/25/18 15:00 11/25/18 15:44 Aldactone PO 25 mg QDAY ROSETTA Administration Nutrition/Malnutrition Assess - Dietary Evaluation Nutrition/Malnutrition Findings: Nutrition Notes Start: 11/25/18 14:43 Freq: Status: Active Protocol: Document 11/25/18 14:43 RM (Rec: 11/25/18 14:50 RM [id number]) Nutrition Notes Need for Assessment generated from: MD Order,Low BMI Initial or Follow up Assessment Current Diagnosis COPD,Diabetes,Heart Failure, Respiratory Failure Other Pertinent Diagnosis Methamphetamine dependence, Medication noncompliance, Hx CVA, Pneu Current Diet Consistent CHO Labs/Tests Reviewed Pertinent Medications Reviewed Height 6 ft 4 in Weight 63.5 kg [place] Body Weight (kg) 91.81 BMI 17.0 Subjective/Other Information Consulted for malnutrition and screened for low BMI. Pt asleep at time of visit. Noted temporal and orbital wasting. Burn Absent Trauma Absent #1 Nutrition Diagnosis Malnutrition Etiology methamphetamine dependence As Evidenced by Signs and Symptoms BMI of 17, temporal wasting, orbital wasting Is patient on ventilator? No Is Patient Ambulatory and/or Out of Bed Yes REE-([place]-ambulatory/OOB) [ 2035.450 [id number]] Kcal/Kg value to use for calculation 40 Approximate Energy Requirements Using 2540 kcal/Kg Calculation Used for Recommendations Kcal/kg Additional Notes Protein Needs: 76-95g (1.2-1. 5g/kg) Fluid Needs: 1 ml/kcal Nutrition Intervention Change Diet Order: Cardiac/Consistent CHO Add Supplement/Snack (indicate name/kcal Glucerna 1 daily /protein ) Provides kCal: 240 Provides Protein (gm) 10 Goal #1 Meet at least 75% of calorie and protein needs via PO and ONS intakes Goal #2 Wt gain/maintenance Anticipated Discharge Needs: Cardic/Consistent CHO Follow-Up By: 11/27/18 Additional Comments Follow for PO and ONS intakes
[2018-11-25] MEDS: PULMICORT IH SCH (22:14)
[2018-11-25] MEDS: DUONEB *Not for PRN Use IH SCH (22:14)
[2018-11-25] MEDS: BROVANA NEBU IH SCH (22:14)
[2018-11-25] MEDS: SOLU-Medrol IV SCH (22:22)
[2018-11-26] MEDS: DUONEB *Not for PRN Use IH SCH ×4 (02:00→20:39)
[2018-11-26] MEDS: SOLU-Medrol IV SCH ×3 (06:33→22:02)
[2018-11-26] MEDS: PERCOCET 5/325 PO PRN ×3 (06:33→18:02)
[2018-11-26] MEDS: BROVANA NEBU IH SCH ×2 (08:15→20:39)
[2018-11-26] MEDS: PULMICORT IH SCH ×2 (08:15→20:39)
[2018-11-26] MEDS: HumaLOG SUB-Q SCH ×4 (10:01→22:39)
[2018-11-26] MEDS: celeXA PO SCH (10:02)
[2018-11-26] MEDS: HALFPRIN EC PO SCH (10:02)
[2018-11-26] MEDS: TESSALON PERLES PO PRN (10:02)
[2018-11-26] MEDS: HABITROL TD SCH (10:02)
[2018-11-26] MEDS: ALDACTONE PO SCH (10:05)
[2018-11-26] MEDS: COREG PO SCH ×2 (10:08→22:02)
[2018-11-26] MEDS: ZESTRIL PO SCH (10:09)
[2018-11-26] MEDS: SODIUM CHLORIDE FLUSH SYRINGE 10 ML IV SCH ×2 (10:09→22:02)
[2018-11-26] MEDS: LASIX PO SCH (10:09)
--- NOTE | 2018-11-26 11:37 | Progress Note ---
Assessment and Plan Shortness of breath chest x-ray revealed changes of COPD, no interstitial edema or heart failure. Cachexia Echocardiogram does reveal a dilated cardiomyopathy with left ventricular ejection fraction 15-20%, chronicity is uncertain. Recommend: Medical therapy for dilated cardiomyopathy to include afterload agents, beta blockers and oral antiplatelet therapy. Subjective Date of service: 11/26/18 Interval history: Patient denies chest pain and shortness of breath. Objective Vital Signs Temp Pulse Pulse Resp Resp BP Pulse Ox 11/26/18 10:09 77 107/70 11/26/18 10:08 77 107/70 11/26/18 10:05 77 107/70 11/26/18 09:09 98.3 F 96 H 18 107/68 94 11/26/18 08:59 94 11/26/18 08:25 92 H 20 11/26/18 08:15 90 20 11/26/18 06:33 20 11/26/18 04:15 98.3 F 11/26/18 04:12 90 16 86/54 90 11/25/18 23:42 98.1 F 11/25/18 23:41 78 91 11/25/18 23:40 79 16 89/55 90 11/25/18 23:00 77 11/25/18 22:27 87 16 11/25/18 22:22 76 111/68 11/25/18 22:15 84 14 11/25/18 22:00 93 11/25/18 21:22 81 92 11/25/18 21:21 97.7 F 74 17 111/68 91 11/25/18 20:47 98 11/25/18 15:44 138/84 11/25/18 15:29 98.3 F 132/84 11/25/18 15:00 78 - Physical Examination General: No Apparent Distress, Cachectic HEENT: Positive: PERRL Neck: Positive: trachea midline Cardiac: Positive: Reg Rate and Rhythm Extremities: Absent: edema
--- NOTE | 2018-11-26 14:17 | Progress Note ---
Assessment and Plan Assessment and plan: Patient is 58 yo man with Nicotine Dependence, DM, Methamphetamine Dependence, Medication Noncompliance presents to ED with shortness of breath. * CTA chest reviewed showed some moderate COPD with no infiltrates Unexplained weight loss per patient documented by Cardiology, Patient poor hx, also claimed admission at [place] and had brain surgery for CVA which later led to prolonged hospitalization and weight loss. Awaiting Records from 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% on Ec ho Tobacco use disorder Severe protein calorie malnutrition with severe cachexia Recent left foot surgery with sutures still present, [facility] records still not here, circuit clerk Tiffany has called couple of times: wound care Continue supportive care with oxygen Recommend outpatient age appropriate cancer screening in light of weight loss- Pt verbalized understanding Awaiting Wound care review of left foot lesion BB, Antiplatelet and afterload agents compliance counselling group social worker/case management consult' malnutrition- furnace utility operator consult DVT/GI prophy Plan discussed with the patient in detail Awaiting Cardiology clearance for discharge. History Interval history: Patient was seen and examined. Follow-up on current diagnosis sob resolved. Overnight uneventful. Patient denies any chest pain, shortness breath, nausea/vomiting or severe headaches. Imaging, nursing note, chart, labs and old chart reviewed. Discussed with patient. Hospitalist Physical - Physical exam Narrative exam: Gen: cachetic NAD, Awake, Alert, Orientated HEENT: NCAT, EOMI, PERRL, OP Clear, sucken bilateral temples Neck: supple, no adenopathy, no thyromegaly, no JVD CVS/Heart: RRR, normal S1S2, pulses present bilaterally Chest/Lungs: diminished bs bilateral, Symmetrical chest expansion, good air entry bilaterally GI/Abdomen: soft, NTND, good bowel sounds, no guarding or rebound /Bladder: no suprapubic tenderness, no CVA or paraspinal tenderness Extermity/Skin: no c/c/e, no obvious rash MSK: FROM x 4 Neuro: CN 2-12 grossly intact, no new focal deficits Psych: calm - Constitutional Vitals: Temp Pulse Resp BP Pulse Ox 97.9 F 89 20 110/72 91 11/26/18 11:52 11/26/18 13:33 11/26/18 13:33 11/26/18 11:52 11/26/18 11:52 General appearance: Present: no acute distress, well-nourished Results - Labs CBC & Chem 7: 11/27/18 05:34 11/27/18 05:34 Labs: Laboratory Last Values WBC 8.5 K/mm3 (4.5-11.0) 11/25/18 06:05 RBC 4.59 M/mm3 (3.65-5.03) 11/25/18 06:05 Hgb 14.1 gm/dl (11.8-15.2) 11/25/18 06:05 Hct 41.6 % (35.5-45.6) 11/25/18 06:05 MCV 91 fl (84-94) 11/25/18 06:05 MCH 31 pg (28-32) 11/25/18 06:05 MCHC 34 % (32-34) 11/25/18 06:05 RDW 14.0 % (13.2-15.2) 11/25/18 06:05 Plt Count 400 K/mm3 (140-440) 11/25/18 06:05 Lymph % (Auto) 15.2 % (13.4-35.0) 11/24/18 06:42 [place] % (Auto) 7.0 % (0.0-7.3) 11/24/18 06:42 Eos % (Auto) 0.0 % (0.0-4.3) 11/24/18 06:42 Baso % (Auto) 0.1 % (0.0-1.8) 11/24/18 06:42 Lymph # 1.8 K/mm3 (1.2-5.4) 11/24/18 06:42 [place] # 0.8 K/mm3 (0.0-0.8) 11/24/18 06:42 Eos # 0.0 K/mm3 (0.0-0.4) 11/24/18 06:42 Baso # 0.0 K/mm3 (0.0-0.1) 11/24/18 06:42 Seg Neutrophils % 77.7 % (40.0-70.0) H 11/24/18 06:42 Seg Neutrophils # 9.0 K/mm3 (1.8-7.7) H 11/24/18 06:42 PT 13.2 Sec. (12.2-14.9) 11/23/18 10:59 INR 0.95 (0.87-1.13) 11/23/18 10:59 APTT 24.1 Sec. (24.2-36.6) L 11/23/18 10:59 POC ABG pH 7.384 (7.35-7.45) 11/23/18 12:28 POC ABG pCO2 46.6 (35-45) H 11/23/18 12:28 POC ABG pO2 53 (80-105) L 11/23/18 12:28 POC ABG HCO3 27.9 (22-26 mml/L) 11/23/18 12:28 POC ABG Total CO2 29 (23-27mmol/L) 11/23/18 12:28 POC ABG O2 Sat 86 11/23/18 12:28 POC ABG Base Excess 3 ((-2) - (+3)mmol/L) 11/23/18 12:28 VBG pH 7.395 (7.320-7.420) 11/23/18 10:59 FiO2 21 % 11/23/18 12:28 Sodium 137 mmol/L (137-145) 11/25/18 06:05 Potassium 4.4 mmol/L (3.6-5.0) 11/25/18 06:05 Chloride 100.0 mmol/L (98-107) 11/25/18 06:05 Carbon Dioxide 28 mmol/L (22-30) 11/25/18 06:05 Anion Gap 13 mmol/L 11/25/18 06:05 BUN 16 mg/dL (9-20) 11/25/18 06:05 Creatinine 0.7 mg/dL (0.8-1.5) L 11/25/18 06:05 Estimated GFR > 60 ml/min 11/25/18 06:05 BUN/Creatinine Ratio 23 % 11/25/18 06:05 Glucose 202 mg/dL (75-100) H 11/25/18 06:05 POC Glucose 332 (70-105) H 11/26/18 11:58 Hemoglobin A1c 9.1 % (4-6) H 11/25/18 17:50 Ketones Quantitative Negative (Negative) 11/23/18 10:59 Calcium 8.8 mg/dL (8.4-10.2) 11/25/18 06:05 Magnesium 1.80 mg/dL (1.7-2.3) 11/23/18 14:24 Total Bilirubin 0.50 mg/dL (0.1-1.2) 11/23/18 10:59 AST 36 units/L (5-40) 11/23/18 10:59 ALT 36 units/L (7-56) 11/23/18 10:59 Alkaline Phosphatase 71 units/L (35-129) 11/23/18 10:59 Total Creatine Kinase < 7 units/L (55-170) L 11/23/18 10:59 CK-MB (CK-2) 2.1 ng/mL (0.0-4.0) 11/23/18 10:59 CK-MB (CK-2) Rel Index 0.0 (0-4) 11/23/18 10:59 Troponin T < 0.010 ng/mL (0.00-0.029) 11/23/18 10:59 NT-Pro-B Natriuret Pep 3093 pg/mL (0-900) H 11/23/18 10:59 Total Protein 7.2 g/dL (6.3-8.2) 11/23/18 10:59 Albumin 2.9 g/dL (3.9-5) L 11/23/18 10:59 Albumin/Globulin Ratio 0.7 % 11/23/18 10:59 TSH 0.318 mlU/mL (0.270-4.200) 11/23/18 14:28 Free T4 1.56 ng/dL (0.76-1.46) H 11/23/18 14:28 Urine Color Yellow (Yellow) 11/23/18 10:30 Urine Turbidity Clear (Clear) 11/23/18 10:30 Urine pH 6.0 (5.0-7.0) 11/23/18 10:30 Ur Specific [place] 1.030 (1.003-1.030) 11/23/18 10:30 Urine Protein 30 mg/dl mg/dL (Negative) 11/23/18 10:30 Urine Glucose (UA) >=500 mg/dL (Negative) 11/23/18 10:30 Urine Ketones Neg mg/dL (Negative) 11/23/18 10:30 Urine Blood Neg (Negative) 11/23/18 10:30 Urine Nitrite Neg (Negative) 11/23/18 10:30 Urine Bilirubin Neg (Negative) 11/23/18 10:30 Urine Urobilinogen 4.0 mg/dL (<2.0) 11/23/18 10:30 Ur Leukocyte Esterase Neg (Negative) 11/23/18 10:30 Urine WBC (Auto) 1.0 /HPF (0.0-6.0) 11/23/18 10:30 Urine RBC (Auto) < 1.0 /HPF (0.0-6.0) 11/23/18 10:30 Hyaline Casts 1 /LPF 11/23/18 10:30 Urine Mucus Few /HPF 11/23/18 10:30 Active Medications - Current Medications Current Medications: Generic Name Dose Route Start Last Admin Trade Name Freq PRN Reason Stop Dose Admin Acetaminophen 650 mg 11/23/18 13:37 11/24/18 16:50 Tylenol PO 650 mg Q4H PRN Administration Pain MILD(1-3)/Fever >100.5/[place]ONS Albuterol 2.5 mg 11/23/18 13:43 Proventil IH Q4H PRN Shortness Of Breath Albuterol/Ipratropium 1 ampul 11/25/18 20:00 11/26/18 13:32 Duoneb *Not For Prn Use* IH 1 ampul Q6HRT ROSETTA Administration Arformoterol Tartrate 15 mcg 11/25/18 20:00 11/26/18 08:15 Brovana Nebu IH 15 mcg Q12HRT ROSETTA Administration Aspirin 81 mg 11/25/18 15:00 11/26/18 10:02 Halfprin Ec PO 81 mg QDAY ROSETTA Administration Benzonatate 100 mg 11/23/18 13:47 11/26/18 10:02 Tessalon Perles PO 100 mg Q8H PRN Administration Cough Budesonide 0.5 mg 11/25/18 20:00 11/26/18 08:15 Pulmicort IH 0.5 mg Q12HRT ROSETTA Administration Carvedilol 3.125 mg 11/25/18 15:00 11/26/18 10:08 Coreg PO 3.125 mg BID ROSETTA Administration Citalopram Hydrobromide 10 mg 11/23/18 15:00 11/26/18 10:02 Celexa PO 10 mg QDAY ROSETTA Administration Dextrose 50 ml 11/23/18 15:33 D50w (25gm) Syringe IV PRN PRN Hypoglycemia Furosemide 20 mg 11/25/18 15:00 11/26/18 10:09 Lasix PO 20 mg QDAY ROSETTA Administration Ceftriaxone Sodium 2 gm in 100 mls @ 200 mls/hr 11/23/18 15:00 11/25/18 15:49 Rocephin/Ns 2 Gm/100 Ml IV 200 mls/hr Q24H ROSETTA Administration Protocol Insulin Human Lispro 0 unit 11/24/18 07:30 11/26/18 12:38 Humalog SUB-Q 8 unit ACHS ROSETTA Administration Protocol Lisinopril 5 mg 11/25/18 15:00 11/26/18 10:09 Zestril PO 5 mg QDAY ROSETTA Administration Methylprednisolone Sodium Succinate 40 mg 11/25/18 22:00 11/26/18 06:33 Solu-Medrol IV 40 mg Q8HR ROSETTA Administration Nicotine 21 mg 11/23/18 15:00 11/26/18 10:02 Habitrol TD 21 mg QDAY ROSETTA Administration Oxycodone/Acetaminophen 1 tab 11/23/18 13:43 11/26/18 12:39 Percocet 5/325 PO 1 tab Q6H PRN Administration Pain, Moderate (4-6) Sodium Chloride 10 ml 11/23/18 22:00 11/26/18 10:09 Sodium Chloride Flush Syringe 10 Ml IV 10 ml BID ROSETTA Administration Sodium Chloride 10 ml 11/23/18 13:37 Sodium Chloride Flush Syringe 10 Ml IV PRN PRN LINE FLUSH Spironolactone 25 mg 11/25/18 15:00 11/26/18 10:05 Aldactone PO 25 mg QDAY ROSETTA Administration Nutrition/Malnutrition Assess - Dietary Evaluation Nutrition/Malnutrition Findings: Nutrition Notes Start: 11/25/18 14:43 Freq: Status: Active Protocol: Document 11/25/18 14:43 RM (Rec: 11/25/18 14:50 RM [id number]) Nutrition Notes Need for Assessment generated from: MD Order,Low BMI Initial or Follow up Assessment Current Diagnosis COPD,Diabetes,Heart Failure, Respiratory Failure Other Pertinent Diagnosis Methamphetamine dependence, Medication noncompliance, Hx CVA, Pneu Current Diet Consistent CHO Labs/Tests Reviewed Pertinent Medications Reviewed Height 6 ft 4 in Weight 63.5 kg [place] Body Weight (kg) 91.81 BMI 17.0 Subjective/Other Information Consulted for malnutrition and screened for low BMI. Pt asleep at time of visit. Noted temporal and orbital wasting. Burn Absent Trauma Absent #1 Nutrition Diagnosis Malnutrition Etiology methamphetamine dependence As Evidenced by Signs and Symptoms BMI of 17, temporal wasting, orbital wasting Is patient on ventilator? No Is Patient Ambulatory and/or Out of Bed Yes REE-([facility]-ambulatory/OOB) [ 2035.450 NUTR.MSJOOB] Kcal/Kg value to use for calculation 40 Approximate Energy Requirements Using 2540 kcal/Kg Calculation Used for Recommendations Kcal/kg Additional Notes Protein Needs: 76-95g (1.2-1. 5g/kg) Fluid Needs: 1 ml/kcal Nutrition Intervention Change Diet Order: Cardiac/Consistent CHO Add Supplement/Snack (indicate name/kcal Glucerna 1 daily /protein ) Provides kCal: 240 Provides Protein (gm) 10 Goal #1 Meet at least 75% of calorie and protein needs via PO and ONS intakes Goal #2 Wt gain/maintenance Anticipated Discharge Needs: Cardic/Consistent CHO Follow-Up By: 11/27/18 Additional Comments Follow for PO and ONS intakes
[2018-11-26] MEDS: ROCEPHIN/NS 2 GM/100 ML 2 GM/100 ML BAG IV SCH (14:41)
[2018-11-27] MEDS: DUONEB *Not for PRN Use IH SCH ×3 (02:51→13:46)
[2018-11-27] MEDS: PERCOCET 5/325 PO PRN ×3 (02:53→15:29)
[2018-11-27 06:20] LABS: Hematocrit 41.6 % (35.5-45.6); Hemoglobin 14.2 gm/dl (11.8-15.2); Mean Corpuscular HGB Conc 34 % (32-34); Mean Corpuscular Volume 90 fl (84-94); Platelet Count 456 K/mm3 (140-440); Red Cell Distribution Width 13.6 % (13.2-15.2)
[2018-11-27] MEDS: SOLU-Medrol IV SCH ×2 (06:27→15:20)
[2018-11-27] MEDS: TYLENOL PO PRN (06:27)
[2018-11-27 06:45] LABS: BUN/Creatinine Ratio 31; Blood Urea Nitrogen 28 mg/dL (9-20); Hemolysis Index 7
[2018-11-27] MEDS: PULMICORT IH SCH (08:08)
[2018-11-27] MEDS: BROVANA NEBU IH SCH (08:09)
[2018-11-27] MEDS: HumaLOG SUB-Q SCH ×2 (09:10→15:19)
[2018-11-27] MEDS: HALFPRIN EC PO SCH (09:11)
[2018-11-27] MEDS: COREG PO SCH (09:11)
[2018-11-27] MEDS: LASIX PO SCH (09:11)
[2018-11-27] MEDS: HABITROL TD SCH (09:11)
[2018-11-27] MEDS: ZESTRIL PO SCH (09:11)
[2018-11-27] MEDS: celeXA PO SCH (09:11)
[2018-11-27] MEDS: ALDACTONE PO SCH (09:12)
--- NOTE | 2018-11-27 09:36 | Progress Note ---
Assessment and Plan Shortness of breath chest x-ray revealed changes of COPD, no interstitial edema or heart failure. Cachexia Echocardiogram does reveal a dilated cardiomyopathy with left ventricular ejection fraction 15-20%, chronicity is uncertain. Recommend: Medical therapy for dilated cardiomyopathy to include afterload agents, beta blockers and oral antiplatelet therapy. Otherwise, conservative cardiac management. Subjective Date of service: 11/27/18 Interval history: Patient is sitting up in bed. He has no complaints. Objective Vital Signs Temp Pulse Pulse Resp Resp Resp BP 11/27/18 09:08 11/27/18 08:43 98.1 F 18 113/60 11/27/18 08:19 74 18 11/27/18 08:09 72 18 11/27/18 03:45 98.5 F 82 20 103/57 11/27/18 02:53 82 20 11/27/18 01:18 97.8 F 85 20 108/62 11/26/18 22:02 82 102/63 11/26/18 20:40 72 20 11/26/18 20:03 98.2 F 76 20 102/63 11/26/18 19:45 81 11/26/18 19:02 20 11/26/18 18:02 16 11/26/18 18:00 97.6 F 11/26/18 17:28 75 96/69 11/26/18 13:43 90 20 11/26/18 13:39 18 11/26/18 13:33 89 20 11/26/18 12:45 20 20 11/26/18 12:39 20 11/26/18 11:52 97.9 F 80 18 110/72 11/26/18 10:11 107/70 11/26/18 10:09 77 107/70 11/26/18 10:08 77 107/70 11/26/18 10:05 77 107/70 Pulse Ox 11/27/18 09:08 94 11/27/18 08:43 11/27/18 08:19 11/27/18 08:09 11/27/18 03:45 89 11/27/18 02:53 11/27/18 01:18 90 11/26/18 22:02 11/26/18 20:40 92 11/26/18 20:03 89 11/26/18 19:45 11/26/18 19:02 11/26/18 18:02 11/26/18 18:00 11/26/18 17:28 94 11/26/18 13:43 11/26/18 13:39 11/26/18 13:33 11/26/18 12:45 11/26/18 12:39 11/26/18 11:52 91 11/26/18 10:11 11/26/18 10:09 11/26/18 10:08 11/26/18 10:05 - Physical Examination General: No Apparent Distress, Cachectic HEENT: Positive: PERRL Neck: Positive: trachea midline Cardiac: Positive: Reg Rate and Rhythm Lungs: Positive: Decreased Breath Sounds Neuro: Positive: Grossly Intact Abdomen: Positive: Soft, Active Bowel Sounds Extremities: Absent: edema - Labs and Meds CBC 11/27/18 Range/Units 05:34 WBC 20.6 H (4.5-11.0) K/mm3 RBC 4.60 (3.65-5.03) M/mm3 Hgb 14.2 (11.8-15.2) gm/dl Hct 41.6 (35.5-45.6) % Plt Count 456 H (140-440) K/mm3 Comprehensive Metabolic Panel 11/27/18 Range/Units 05:34 Sodium 133 L (137-145) mmol/L Potassium 5.0 (3.6-5.0) mmol/L Chloride 97.4 L (98-107) mmol/L Carbon Dioxide 23 (22-30) mmol/L BUN 28 H (9-20) mg/dL Creatinine 0.9 (0.8-1.5) mg/dL Glucose 477 H (75-100) mg/dL Calcium 9.0 (8.4-10.2) mg/dL
--- NOTE | 2018-11-27 14:19 | Progress Note ---
Assessment and Plan Assessment and plan: Patient is 58 yo man with Nicotine Dependence, DM, Methamphetamine Dependence, Medication Noncompliance presents to ED with shortness of breath. * CTA chest reviewed showed some moderate COPD with no infiltrates Unexplained weight loss per patient documented by Cardiology, Patient poor hx, also claimed admission at [facility] and had brain surgery for CVA which later led to prolonged hospitalization and weight loss. 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% on Echo Acute Respiratory failure with hypoxia likely secondary to underlying COPD, ruled out PNA COPD with Acute Exacerbation: steroid, abx, nebs Dilated Cardiomyopathy with presumed, Cardiology input noted, continue optimizing med management Tobacco use disorder and psa: counselling done Severe protein calorie malnutrition with severe cachexia, BMI 16.6: [employer] to follow Recent left foot surgery with sutures still present, [facility] records still not here, cash clerkclerk Tesfaye has called couple of times: wound care and consulted Ortho to evaluate DVT prophylaxis reviewed Disposition: continue inpatient care, home with HH per PT once Cardiology clears History Interval history: Patient was seen and examined. Follow-up on current diagnosis sob resolved. Overnight uneventful. Patient denies any chest pain, shortness breath, nausea/vomiting or severe headaches. Imaging, nursing note, chart, labs and old chart reviewed. Discussed with patient. Hospitalist Physical - Physical exam Narrative exam: Gen: cachetic NAD, Awake, Alert, Orientated HEENT: NCAT, EOMI, PERRL, OP Clear, sucken bilateral temples Neck: supple, no adenopathy, no thyromegaly, no JVD CVS/Heart: RRR, normal S1S2, pulses present bilaterally Chest/Lungs: diminished bs bilateral, Symmetrical chest expansion, good air entry bilaterally GI/Abdomen: soft, NTND, good bowel sounds, no guarding or rebound /Bladder: no suprapubic tenderness, no CVA or paraspinal tenderness Extermity/Skin: no c/c/e, no obvious rash MSK: FROM x 4 Neuro: CN 2-12 grossly intact, no new focal deficits Psych: calm - Constitutional Vitals: Temp Pulse Resp BP Pulse Ox 98.1 F 74 18 113/60 94 04/10/19 08:43 11/27/18 08:19 11/27/18 08:43 11/27/18 08:43 11/27/18 09:08 General appearance: Present: no acute distress, well-nourished Results - Labs CBC & Chem 7: 11/27/18 05:34 11/27/18 05:34 Labs: Laboratory Last Values WBC 20.6 K/mm3 (4.5-11.0) H 11/27/18 05:34 RBC 4.60 M/mm3 (3.65-5.03) 11/27/18 05:34 Hgb 14.2 gm/dl (11.8-15.2) 11/27/18 05:34 Hct 41.6 % (35.5-45.6) 11/27/18 05:34 MCV 90 fl (84-94) 11/27/18 05:34 MCH 31 pg (28-32) 11/27/18 05:34 MCHC 34 % (32-34) 11/27/18 05:34 RDW 13.6 % (13.2-15.2) 11/27/18 05:34 Plt Count 456 K/mm3 (140-440) H 11/27/18 05:34 Lymph % (Auto) 15.2 % (13.4-35.0) 11/24/18 06:42 [place] % (Auto) 7.0 % (0.0-7.3) 11/24/18 06:42 Eos % (Auto) 0.0 % (0.0-4.3) 11/24/18 06:42 Baso % (Auto) 0.1 % (0.0-1.8) 11/24/18 06:42 Lymph # 1.8 K/mm3 (1.2-5.4) 11/24/18 06:42 [place] # 0.8 K/mm3 (0.0-0.8) 11/24/18 06:42 Eos # 0.0 K/mm3 (0.0-0.4) 11/24/18 06:42 Baso # 0.0 K/mm3 (0.0-0.1) 11/24/18 06:42 Seg Neutrophils % 77.7 % (40.0-70.0) H 11/24/18 06:42 Seg Neutrophils # 9.0 K/mm3 (1.8-7.7) H 11/24/18 06:42 PT 13.2 Sec. (12.2-14.9) 11/23/18 10:59 INR 0.95 (0.87-1.13) 11/23/18 10:59 APTT 24.1 Sec. (24.2-36.6) L 11/23/18 10:59 POC ABG pH 7.384 (7.35-7.45) 11/23/18 12:28 POC ABG pCO2 46.6 (35-45) H 11/23/18 12:28 POC ABG pO2 53 (80-105) L 11/23/18 12:28 POC ABG HCO3 27.9 (22-26 mml/L) 11/23/18 12:28 POC ABG Total CO2 29 (23-27mmol/L) 11/23/18 12:28 POC ABG O2 Sat 86 11/23/18 12:28 POC ABG Base Excess 3 ((-2) - (+3)mmol/L) 11/23/18 12:28 VBG pH 7.395 (7.320-7.420) 11/23/18 10:59 FiO2 21 % 11/23/18 12:28 Sodium 133 mmol/L (137-145) L 11/27/18 05:34 Potassium 5.0 mmol/L (3.6-5.0) 11/27/18 05:34 Chloride 97.4 mmol/L (98-107) L 11/27/18 05:34 Carbon Dioxide 23 mmol/L (22-30) 11/27/18 05:34 Anion Gap 18 mmol/L 11/27/18 05:34 BUN 28 mg/dL (9-20) H 11/27/18 05:34 Creatinine 0.9 mg/dL (0.8-1.5) 11/27/18 05:34 Estimated GFR > 60 ml/min 11/27/18 05:34 BUN/Creatinine Ratio 31 % 11/27/18 05:34 Glucose 477 mg/dL (75-100) H 11/27/18 05:34 POC Glucose 340 (70-105) H 11/27/18 11:18 Hemoglobin A1c 9.1 % (4-6) H 11/25/18 17:50 Ketones Quantitative Negative (Negative) 11/23/18 10:59 Calcium 9.0 mg/dL (8.4-10.2) 11/27/18 05:34 Magnesium 1.90 mg/dL (1.7-2.3) 11/27/18 05:34 Total Bilirubin 0.50 mg/dL (0.1-1.2) 11/23/18 10:59 AST 36 units/L (5-40) 11/23/18 10:59 ALT 36 units/L (7-56) 11/23/18 10:59 Alkaline Phosphatase 71 units/L (35-129) 11/23/18 10:59 Total Creatine Kinase < 7 units/L (55-170) L 11/23/18 10:59 CK-MB (CK-2) 2.1 ng/mL (0.0-4.0) 11/23/18 10:59 CK-MB (CK-2) Rel Index 0.0 (0-4) 11/23/18 10:59 Troponin T < 0.010 ng/mL (0.00-0.029) 11/23/18 10:59 NT-Pro-B Natriuret Pep 3093 pg/mL (0-900) H 11/23/18 10:59 Total Protein 7.2 g/dL (6.3-8.2) 11/23/18 10:59 Albumin 2.9 g/dL (3.9-5) L 11/23/18 10:59 Albumin/Globulin Ratio 0.7 % 11/23/18 10:59 TSH 0.318 mlU/mL (0.270-4.200) 11/23/18 14:28 Free T4 1.56 ng/dL (0.76-1.46) H 11/23/18 14:28 Urine Color Yellow (Yellow) 11/23/18 10:30 Urine Turbidity Clear (Clear) 11/23/18 10:30 Urine pH 6.0 (5.0-7.0) 11/23/18 10:30 Ur Specific [place] 1.030 (1.003-1.030) 11/23/18 10:30 Urine Protein 30 mg/dl mg/dL (Negative) 11/23/18 10:30 Urine Glucose (UA) >=500 mg/dL (Negative) 11/23/18 10:30 Urine Ketones Neg mg/dL (Negative) 11/23/18 10:30 Urine Blood Neg (Negative) 11/23/18 10:30 Urine Nitrite Neg (Negative) 11/23/18 10:30 Urine Bilirubin Neg (Negative) 11/23/18 10:30 Urine Urobilinogen 4.0 mg/dL (<2.0) 11/23/18 10:30 Ur Leukocyte Esterase Neg (Negative) 11/23/18 10:30 Urine WBC (Auto) 1.0 /HPF (0.0-6.0) 11/23/18 10:30 Urine RBC (Auto) < 1.0 /HPF (0.0-6.0) 11/23/18 10:30 Hyaline Casts 1 /LPF 11/23/18 10:30 Urine Mucus Few /HPF 11/23/18 10:30 Active Medications - Current Medications Current Medications: Generic Name Dose Route Start Last Admin Trade Name Freq PRN Reason Stop Dose Admin Acetaminophen 650 mg 11/23/18 13:37 11/27/18 06:27 Tylenol PO 650 mg Q4H PRN Administration Pain MILD(1-3)/Fever >100.5/[place] Albuterol 2.5 mg 11/23/18 13:43 Proventil IH Q4H PRN Shortness Of Breath Albuterol/Ipratropium 1 ampul 11/25/18 20:00 11/27/18 13:46 Duoneb *Not For Prn Use* IH Not Given Q6HRT ROSETTA Arformoterol Tartrate 15 mcg 11/25/18 20:00 11/27/18 08:09 Brovana Nebu IH Not Given Q12HRT ROSETTA Aspirin 81 mg 11/25/18 15:00 11/27/18 09:11 Halfprin Ec PO 81 mg QDAY ROSETTA Administration Benzonatate 100 mg 11/23/18 13:47 11/26/18 10:02 Tessalon Perles PO 100 mg Q8H PRN Administration Cough Budesonide 0.5 mg 11/25/18 20:00 11/27/18 08:08 Pulmicort IH 0.5 mg Q12HRT ROSETTA Administration Carvedilol 3.125 mg 11/25/18 15:00 11/27/18 09:11 Coreg PO 3.125 mg BID ROSETTA Administration Citalopram Hydrobromide 10 mg 11/23/18 15:00 11/27/18 09:11 Celexa PO 10 mg QDAY ROSETTA Administration Dextrose 50 ml 11/23/18 15:33 D50w (25gm) Syringe IV PRN PRN Hypoglycemia Furosemide 20 mg 11/25/18 15:00 11/27/18 09:11 Lasix PO 20 mg QDAY ROSETTA Administration Ceftriaxone Sodium 2 gm in 100 mls @ 200 mls/hr 11/23/18 15:00 11/26/18 14:41 Rocephin/Ns 2 Gm/100 Ml IV 200 mls/hr Q24H ROSETTA Administration Protocol Insulin Human Lispro 0 unit 11/24/18 07:30 11/27/18 09:10 Humalog SUB-Q 10 unit ACHS ROSETTA Administration Protocol Lisinopril 5 mg 11/25/18 15:00 11/27/18 09:11 Zestril PO 5 mg QDAY ROSETTA Administration Methylprednisolone Sodium Succinate 40 mg 11/25/18 22:00 11/27/18 06:27 Solu-Medrol IV 40 mg Q8HR ROSETTA Administration Nicotine 21 mg 11/23/18 15:00 11/27/18 09:11 Habitrol TD 21 mg QDAY ROSETTA Administration Oxycodone/Acetaminophen 1 tab 11/23/18 13:43 11/27/18 09:11 Percocet 5/325 PO 1 tab Q6H PRN Administration Pain, Moderate (4-6) Sodium Chloride 10 ml 11/23/18 22:00 11/26/18 22:02 Sodium Chloride Flush Syringe 10 Ml IV 10 ml BID ROSETTA Administration Sodium Chloride 10 ml 11/23/18 13:37 11/27/18 06:29 Sodium Chloride Flush Syringe 10 Ml IV 10 ml PRN PRN Administration LINE FLUSH Spironolactone 25 mg 11/25/18 15:00 11/27/18 09:12 Aldactone PO 25 mg QDAY ROSETTA Administration Nutrition/Malnutrition Assess - Dietary Evaluation Nutrition/Malnutrition Findings: Nutrition Notes Start: 11/25/18 14:43 Freq: Status: Active Protocol: Document 11/25/18 14:43 RM (Rec: 11/25/18 14:50 RM [id number]) Nutrition Notes Need for Assessment generated from: MD Order,Low BMI Initial or Follow up Assessment Current Diagnosis COPD,Diabetes,Heart Failure, Respiratory Failure Other Pertinent Diagnosis Methamphetamine dependence, Medication noncompliance, Hx CVA, Pneu Current Diet Consistent CHO Labs/Tests Reviewed Pertinent Medications Reviewed Height 6 ft 4 in Weight 63.5 kg [place] Body Weight (kg) 91.81 BMI 17.0 Subjective/Other Information Consulted for malnutrition and screened for low BMI. Pt asleep at time of visit. Noted temporal and orbital wasting. Burn Absent Trauma Absent #1 Nutrition Diagnosis Malnutrition Etiology methamphetamine dependence As Evidenced by Signs and Symptoms BMI of 17, temporal wasting, orbital wasting Is patient on ventilator? No Is Patient Ambulatory and/or Out of Bed Yes REE-([facility]-ambulatory/OOB) [ 2035.450 NUTR.[id number]] Kcal/Kg value to use for calculation 40 Approximate Energy Requirements Using 2540 kcal/Kg Calculation Used for Recommendations Kcal/kg Additional Notes Protein Needs: 76-95g (1.2-1. 5g/kg) Fluid Needs: 1 ml/kcal Nutrition Intervention Change Diet Order: Cardiac/Consistent CHO Add Supplement/Snack (indicate name/kcal Glucerna 1 daily /protein ) Provides kCal: 240 Provides Protein (gm) 10 Goal #1 Meet at least 75% of calorie and protein needs via PO and ONS intakes Goal #2 Wt gain/maintenance Anticipated Discharge Needs: Cardic/Consistent CHO Follow-Up By: 11/27/18 Additional Comments Follow for PO and ONS intakes
--- NOTE | 2018-11-27 15:03 | Discharge Summary ---
Providers - Providers Date of Admission: 11/23/18 13:37 Date of discharge: 11/27/18 Attending physician: PARMJIT LAZARO 11/23/18 13:49 Consult to Physician [CONS] Routine Comment: Consulting Provider: SAKINA MUNOZ Physician Instructions: Reason For Exam: chf 11/24/18 13:45 Consult to Wound/ET Nurse [CONS] Routine Reason For Exam: wound eval-left foot 11/24/18 13:48 Consult to Case Management [CONS] Routine Services Needed at Discharge: Information Systems Security Developer Notified:: shelter case managerjewelry manager Therapy Evaluate and Treat [CONS] Routine Comment: Reason For Exam: debility Physical Therapy Evaluation and Treat [CONS] Routine Comment: Reason For Exam: debility 11/24/18 13:49 Consult to Dietitian/Nutrition [CONS] Routine Physician Instructions: Reason For Exam: Reason for Consult: Malnutrition 11/27/18 14:14 Consult to Physician [CONS] Routine Comment: Consulting Provider: FADI PEREZ Physician Instructions: Reason For Exam: left foot surgery, evaluate sutures for removal [facility] Hospital[facility] Condition: Stable Hospital course: Patient is 58 yo man with Nicotine Dependence, DM, Methamphetamine Dependence, Medication Noncompliance presents to ED with shortness of breath. * CTA chest reviewed showed some moderate COPD with no infiltrates Unexplained weight loss per patient documented by Cardiology, Patient poor hx, also claimed admission at [facility] and had brain surgery for CVA which later led to prolonged hospitalization and weight loss. 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% on Echo Acute Respiratory failure with hypoxia likely secondary to underlying COPD, ruled out PNA COPD with Acute Exacerbation: steroid, abx, nebs Dilated Cardiomyopathy with presumed, Cardiology input noted, continue optimizing med management Tobacco use disorder and psa: counselling done Severe protein calorie malnutrition with severe cachexia, BMI 16.6: Regulatory Law Specialist to follow Recent left foot surgery with sutures still present, [facility] records still not here, 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 Hogan Disposition: [id number]/TX-06 HOME UNDER HOME HLTH Time spent for discharge: 33 minutes Core Measure Documentation - Palliative Care Palliative Care/ Comfort Measures: Not Applicable - Core Measures Any of the following diagnoses?: heart failure - VTE Discharge Requirements Deep Vein Thrombosis/Pulmonary Embolism Present on Admission: No Has pt received <5 days of overlap therapy or INR<2.0: No Anticoagulant overlap therapy prescribed at discharge: No Contraindication No Overlap Therapy order at DC: Not Indicated - Heart Failure Discharge Requirements CHAD/ARB for LVSD if EF <40%: Yes Beta cristal at discharge: Yes Exam - Physical Exam Narrative exam: Gen: cachetic bmi 16.6, NAD, Awake, Alert, Orientated HEENT: NCAT, EOMI, PERRL, OP Clear, sucken bilateral temples Neck: supple, no adenopathy, no thyromegaly, no JVD CVS/Heart: RRR, normal S1S2, pulses present bilaterally Chest/Lungs: diminished bs bilateral, Symmetrical chest expansion, good air entry bilaterally GI/Abdomen: soft, NTND, good bowel sounds, no guarding or rebound /Bladder: no suprapubic tenderness, no CVA or paraspinal tenderness Extermity/Skin: no c/c/e, no obvious rash MSK: FROM x 4 Neuro: CN 2-12 grossly intact, no new focal deficits Psych: calm - Constitutional Vitals: Temp Pulse Resp BP Pulse Ox 98.1 F 74 18 113/60 94 11/27/18 08:43 11/27/18 08:19 11/27/18 08:43 11/27/18 08:43 11/27/18 09:08 Plan Activity: other (no strenous activity unless cleared by Cardiology) Diet: low salt Special Instructions: smoking cessation Additional Instructions: Return to surgeon who performed left foot surgery to get sutures removed or make an appointment with Dr. Fadi Perez Follow up with: KINGSTON SKINNER MD [Primary Care Provider] - 3-5 Days FADI PEREZ MD [Staff Physician] - 7 Days SAKINA MUNOZ MD [Staff Physician] - 7 Days Prescriptions: Spironolactone [Aldactone] 25 mg PO QDAY #30 tablet cefUROXime [Ceftin] 500 mg PO Q12H #10 tablet Ipratropium/Albuter (Nf) [Combivent (Nf)] 2 puff IH BID #1 inha Carvedilol [Coreg] 3.125 mg PO BID #60 tablet Nicotine [Habitrol] 21 mg TD QDAY #14 patch Furosemide [Lasix TAB] 20 mg PO QDAY #30 tablet methylPREDNISolone [Medrol Dose [place]] 1 dose PO QDAY #1 pack oxyCODONE /ACETAMINOPHEN [Percocet 5/325 mg] 1 tab PO Q6H PRN #15 tablet PRN Reason: Pain , Severe (7-10) Budesonide/Formoterol Fumarate [Symbicort 160-4.5 Mcg Inhaler] 2 puff IH BID #1 hfa.aer.ad ALBUTEROL Inhaler(NF) [VENTOLIN Inhaler(NF)] 2 puff IH Q4H PRN #1 unit PRN Reason: Shortness Of Breath Lisinopril [Zestril TAB] 5 mg PO QDAY #30 tablet
[2018-11-27] MEDS: ROCEPHIN/NS 2 GM/100 ML 2 GM/100 ML BAG IV SCH (15:19)
[2018-11-27] MEDS: SODIUM CHLORIDE FLUSH SYRINGE 10 ML IV SCH (15:20)
[2018-11-27 16:16] VITALS: BP 120/75
== END 2018-11-27 17:43 | disposition home health service (06) | DRG 189 ==
LOC: ED 10:17 → 4A 13:37
PROVIDERS: ADMIT Internal Medicine; ATTEND Internal Medicine
PROC: 4A033R1 Measurement of Arterial Saturation, Peripheral, Percutaneous Approach (ICD-10-PCS; principal; 2018-11-23)
DX: J96.01 Acute respiratory failure with hypoxia (principal); I50.43 Acute on chronic combined systolic (congestive) and diastolic (congestive) heart failure; E43 Unspecified severe protein-calorie malnutrition; F17.203 Nicotine dependence unspecified, with withdrawal; Z68.1 Body mass index [BMI] 19.9 or less, adult; F15.20 Other stimulant dependence, uncomplicated; I42.0 Dilated cardiomyopathy; R64 Cachexia; J43.9 Emphysema, unspecified; F17.210 Nicotine dependence, cigarettes, uncomplicated; E11.9 Type 2 diabetes mellitus without complications; Z86.73 Personal history of transient ischemic attack (TIA), and cerebral infarction without residual deficits; Z91.14 Patient's other noncompliance with medication regimen
CPT/HCPCS: 36415; 71045; 71275; 80048; 80053; 81001; 82010; 82550; 82553; 82803; 82805; 82962; 83036; 83735; 83880; 84439; 84443; 84484; 85025; 85027; 85610; 85730; 87040; 93005; 93010; 93306; 94640; 94644; 94760; 96365; 96367; 96375; G0378; J0456; J0696; J1815; J2920; J2930; J3475; J7050; Q9967

== ENCOUNTER 2019-03-02 03:10 | Inpatient (IN) | payer MEDICARE ==
[2019-03-02 04:41] LABS: Basophils # (Auto) 0.1 K/mm3 (0.0-0.1); Basophils % (Auto) 0.5 % (0.0-1.8); Eosinophils % (Auto) 0.4 % (0.0-4.3); Hemoglobin 11.4 gm/dl (11.8-15.2); Lymphocytes # (Auto) 2.3 K/mm3 (1.2-5.4); Lymphocytes % (Auto) 19.4 % (13.4-35.0); Mean Corpuscular HGB Conc 35 % (32-34); Mean Corpuscular Volume 86 fl (84-94); Monocytes # (Auto) 1.2 K/mm3 (0.0-0.8); Monocytes % (Auto) 9.8 % (0.0-7.3); Platelet Count 268 K/mm3 (140-440); Red Blood Count 3.84 M/mm3 (3.65-5.03); Red Cell Distribution Width 14.2 % (13.2-15.2)
[2019-03-02] MEDS ORDERED: NORCO 10/325 PO ONE (05:02)
[2019-03-02 05:23] LABS: BUN/Creatinine Ratio 20; Blood Urea Nitrogen 10 mg/dL (9-20); Calcium 8.4 mg/dL (8.4-10.2); Hemolysis Index 4
[2019-03-02] MEDS: KCL 10MEQ/100ML 10 MEQ/100 ML BAG IV SCH ×2 (08:14→12:56)
[2019-03-02] MEDS ORDERED: XANAX PO ONE (08:48)
[2019-03-02] MEDS ORDERED: XANAX ONE (08:49)
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
[2019-03-02] MEDS ORDERED: ZOFRAN IV PRN (12:19)
[2019-03-02] MEDS ORDERED: TYLENOL PO PRN ×2 (12:19→12:20)
[2019-03-02] MEDS ORDERED: SODIUM CHLORIDE FLUSH SYRINGE 10 ML IV PRN (12:19)
[2019-03-02] MEDS ORDERED: TESSALON PERLES PO PRN (12:20)
[2019-03-02] MEDS ORDERED: PROAIR IH PRN (12:20)
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
[2019-03-02] MEDS: PERCOCET 5/325 PO PRN ×2 (14:15→20:03)
[2019-03-02] MEDS ORDERED: PROVENTIL IH PRN (14:48)
--- NOTE | 2019-03-02 15:01 | XRay Report ---
CHEST 1 VIEW INDICATION / CLINICAL INFORMATION: malaise. Chest pain. COMPARISON: None available. FINDINGS: SUPPORT DEVICES: None. HEART / MEDIASTINUM: No significant abnormality. LUNGS / PLEURA: The lungs are hyperexpanded with airspace density scattered throughout both lungs wor risome for pneumonia. Signer Name: Arun Hamm MD Signed: 03/02/2019 2:56 PM Workstation Name: [id number]
[2019-03-02] MEDS ORDERED: K-DUR PO ONE ×2 (16:00→18:25)
--- NOTE | 2019-03-02 16:30 | Vascular Lab Report ---
DUPLEX DOPPLER LOWER EXTREMITY ARTERIAL, BILATERAL INDICATION: Lower extremity pain and swelling. Gangrene. Left [id number] amputation. TECHNIQUE: Arterial duplex examination of both lower extremities performed using B-mode, color flow and spectral Doppler assessment. FINDINGS: RIGHT: Common Femoral Artery: PSV 88 cm/sec. Triphasic waveform. Proximal SFA: PSV 107 cm/sec. Triphasic waveform. Mid SFA: PSV 120 cm/sec. Triphasic waveform. Distal SFA: PSV 124 cm/sec. Triphasic waveform. Popliteal artery: PSV 106 cm/sec. Monophasic waveform. Posterior tibial artery: PSV 108 cm/sec. Monophasic waveform. Dorsalis Pedis Artery: PSV 34 cm/sec. Monophasic waveform. LEFT: Common Femoral Artery: PSV 206 cm/sec. Triphasic waveform. Proximal SFA: PSV 141 cm/sec. Triphasic waveform. Mid SFA: PSV 72 cm/sec. Triphasic waveform. IMPRESSION: Mild to moderate atherosclerotic disease identified throughout both lower extremities. No high-grade stenosis or occlusion of the right lower extremity arteries identified however there is abnormal mono phasic flow below the right knee concerning for severe small vessel disease. Ankle-Brachial Index (CINTIA): * Calcified arteries > 1.4 * Normal = 0.9-1.4 * Mild PAD = 0.7-0.89 * Moderate PAD = 0.51-0.69 * Severe PAD < 0.5 Doppler Waveform: * Triphasic is normal. * Biphasic is abnormal if clear transition from triphasic signal along vascular tree. * Monophasic is abnormal. Signer Name: Arun Hamm MD Signed: 03/02/2019 4:25 PM Workstation Name: [id number]
[2019-03-02] MEDS ORDERED: D50W (25GM) Syringe IV PRN (18:13)
[2019-03-02] MEDS: celeXA PO SCH (18:33)
[2019-03-02] MEDS: HALFPRIN EC PO SCH (18:33)
[2019-03-02] MEDS: HABITROL TD SCH (18:33)
[2019-03-02] MEDS: ZESTRIL PO SCH (18:34)
[2019-03-02] MEDS: HumaLOG SUB-Q SCH ×2 (18:34→22:13)
[2019-03-02] MEDS: BROVANA NEBU IH SCH (20:14)
[2019-03-02] MEDS: PULMICORT IH SCH (20:15)
[2019-03-02] MEDS: DUONEB *Not for PRN Use IH SCH (20:15)
[2019-03-02] MEDS ORDERED: NON-FORMULARY (Budesonide/Formoterol Fumarate [Symbicort 160-4.5 Mcg Inhaler] 2 PUFF) IH SCH (22:00)
[2019-03-02] MEDS ORDERED: NON-FORMULARY (Ipratropium/Albuter (Nf) 2 PUFF) IH SCH (22:00)
[2019-03-02 22:07] LABS: Bilirubin,Urine NEG (Negative); Blood,Urine NEG (Negative); Color,Urine Yellow (Yellow); Mucus,Urine FEW /HPF; Protein,Urine <15 mg/dL mg/dL (Negative)
[2019-03-03] MEDS: SODIUM CHLORIDE FLUSH SYRINGE 10 ML IV SCH ×2 (00:16→14:15)
[2019-03-03] MEDS: COREG PO SCH ×3 (00:16→22:19)
[2019-03-03] MEDS: LANTUS SUB-Q SCH ×2 (00:17→22:13)
[2019-03-03] MEDS: DUONEB *Not for PRN Use IH SCH ×4 (01:42→22:15)
[2019-03-03] MEDS: PERCOCET 5/325 PO PRN ×3 (02:11→19:28)
[2019-03-03] MEDS: HumaLOG SUB-Q SCH ×4 (08:28→22:13)
[2019-03-03] MEDS ORDERED: HEPARIN 10,000 UNITS/10 ML ONE (09:38)
[2019-03-03] MEDS ORDERED: HEPARIN/NS 5000 UNIT/500ML(CATH LAB) 1,000 ML IR ONE (09:38)
[2019-03-03] MEDS ORDERED: ANCEF/STERILE WATER 2 GM/20 ML 2 GM/20 ML SYRINGE IV ONE (09:39)
[2019-03-03] MEDS ORDERED: XYLOCAINE 1%/ EPI 1:100,000 INFILTRATI ONE (09:41)
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
[2019-03-03] MEDS ORDERED: LOVENOX SUB-Q SCH (10:00)
[2019-03-03] MEDS ORDERED: CALAN ONE (10:03)
[2019-03-03] MEDS ORDERED: NITROGLYCERIN SYRINGE 3 ML ONE (10:03)
[2019-03-03] MEDS: PULMICORT IH SCH ×2 (10:11→22:15)
[2019-03-03] MEDS: BROVANA NEBU IH SCH ×2 (10:11→22:15)
[2019-03-03] MEDS ORDERED: NACL 0.9% 500 ML 500 ML ONE (10:15)
[2019-03-03] MEDS: SUBLIMAZE ONE ×2 (10:33→10:38)
[2019-03-03] MEDS: VERSED ONE ×2 (10:34→10:38)
[2019-03-03] MEDS ORDERED: NITRO-BID 2% TP ONE (10:55)
[2019-03-03] MEDS ORDERED: SUBLIMAZE ONE (11:07)
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
--- NOTE | 2019-03-03 11:46 | Post Operative Note ---
Date of procedure: 03/03/19 Pre-op diagnosis: Gangrene of the lower extremities Post-op diagnosis: same Findings: Thrombus in the right common iliac artery stent-graft Procedure: 1. Ultrasound guided access of the right radial artery 2. Selection of the thoracic aorta, and abdominal aorta 3. Angiography of the aorta and bilateral lower extremities with runoff Anesthesia: local (w/ conscious sedation) Surgeon: ZAC MCDONALD Estimated blood loss: minimal Condition: stable Disposition: floor
[2019-03-03] MEDS: PLAVIX PO SCH (11:47)
[2019-03-03] MEDS ORDERED: PLAVIX ONE (11:48)
[2019-03-03] MEDS ORDERED: PERCOCET 5/325 ONE (11:48)
--- NOTE | 2019-03-03 12:10 | Operative Report ---
Operative Report Operative Report: EXAM: 1. Ultrasound guided access of the right radial artery 2. Selection of the thoracic aorta, and abdominal aorta 3. Angiography of the aorta and bilateral lower extremities with runoff (clinical change) DATE: 03/03/19 FUMIGATOR AND STERILIZER: ZAC MCDONALD MD INDICATION: Abnormal arterial Doppler with abnormal physical exam and gangrene of the lower extremities. MEDICATIONS: Please see nursing report for full details. CONTRAST: 85 mL's of nonionic contrast PROCEDURE: The risks, benefits, and alternatives were discussed the patient; written informed consent was obtained. The right wrist was prepped and draped in a sterile fashion. Under direct ultrasound guidance, the right radial artery was evaluated and was patent. The artery was accessed with a 21-gauge micropuncture needle and 0.018 inch wire was passed into the radial artery. Needle was exchanged for a 4/5 radial glidesheath slender and a radial cocktail was administered. 0.035 inch J-wire was then negotiated with a pigtail catheter into the thoracic aorta, abdominal aorta, and the abdominal aorta was selected. Digital subtraction angiography was performed and then digital subtraction angiography with runoff imaging was performed. AORTA: Dedicated imaging demonstrated that the abdominal aorta was patent and the abdominal aorta stent was patent. LEFT LOWER EXTREMITY: The left common iliac artery and external iliac artery were patent and the stent in the common iliac artery was patent. The left common femoral artery, profundofemoral artery, and superficial femoral artery were patent. The distal portion of the superficial femoral artery was amputated with patient's above- knee amputation but the stump was patent. RIGHT LOWER EXTREMITY: Right common iliac artery stent had a thrombus in it that was probably occupying 80% of the lumen. The stented portion of the right external iliac artery was patent. There may be a small amount of nonocclusive thrombus in the iliac artery at the junction of the internal iliac artery takeoff within the iliac artery. The right common femoral artery, superficial femoral artery, popliteal artery, tibioperoneal trunk, anterior tibial artery, and posterior tibial artery were patent. The peroneal artery was atretic. The profunda femoral artery was patent. After reviewing the imaging, all wires, catheters, and she certainly removed and pressure bandage was applied. Heparin drip was initiated soon after the procedure. FINDINGS: Please see procedure note above. IMPRESSION: Diagnostic study of the bilateral lower extremities and abdominal aorta with selection of the abdominal aorta.
[2019-03-03] MEDS: HABITROL TD SCH (14:14)
[2019-03-03] MEDS: celeXA PO SCH (14:14)
[2019-03-03] MEDS: HALFPRIN EC PO SCH (14:14)
[2019-03-03] MEDS: ZESTRIL PO SCH (14:15)
[2019-03-03 14:33] LABS: Hematocrit 35.6 % (35.5-45.6)
[2019-03-03] MEDS ORDERED: XANAX PO ONE (14:51)
[2019-03-03 15:27] LABS: INR 1.07 (0.87-1.13)
[2019-03-03 15:28] LABS: Partial Thromboplastin Time 29.4 Sec. (24.2-36.6)
[2019-03-03] MEDS: HEPARIN/ 0.45% NACL-25,000 UNIT/500 ML 25,000 UNIT/500 ML BAG IV SCH (15:33)
--- NOTE | 2019-03-03 16:15 | Event Note ---
Date: 03/03/19 The patient will need to be scheduled for stent/graft placement/relining of the right common iliac artery to exclude the thrombus. Heparin drip was initiated in the interim. Awaiting anesthesia schedule in order to schedule the patient. After stent/graft displaced, patient may need wound care consult for possible right TMA and left AKA stump debridement which probably can be performed at the same time. Further discussion with the patient will be required prior to consult as the patient does not want to be "cut on".
[2019-03-03] MEDS ORDERED: HEPARIN 10,000 UNITS/10 ML IV ONE (23:57)
[2019-03-04] MEDS: SODIUM CHLORIDE FLUSH SYRINGE 10 ML IV SCH ×3 (00:07→21:05)
[2019-03-04] MEDS: PERCOCET 5/325 PO PRN ×4 (01:12→23:28)
[2019-03-04] MEDS: DUONEB *Not for PRN Use IH SCH ×4 (02:30→21:18)
[2019-03-04] MEDS: BROVANA NEBU IH SCH ×2 (09:01→21:18)
[2019-03-04] MEDS: PULMICORT IH SCH ×2 (09:01→21:18)
[2019-03-04 09:04] LABS: BUN/Creatinine Ratio 27; Blood Urea Nitrogen 8 mg/dL (9-20); Calcium 8.1 mg/dL (8.4-10.2); Hemolysis Index 16
[2019-03-04] MEDS: HumaLOG SUB-Q SCH ×4 (09:25→22:50)
--- NOTE | 2019-03-04 10:18 | Event Note ---
Date: 03/04/19 Came to see pt. 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 Dr. Grant's event note read. Will see pt tomorrow.
[2019-03-04] MEDS: COREG PO SCH ×2 (10:22→22:50)
[2019-03-04] MEDS: HEPARIN/ 0.45% NACL-25,000 UNIT/500 ML 25,000 UNIT/500 ML BAG IV SCH (10:35)
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
--- NOTE | 2019-03-04 10:49 | Anesthesia Day of Surgery ---
Anesthesia Day of Surgery - Day of Surgery Patient Examined: Yes Patient H&P Reviewed: Yes Patient is NPO: Yes
[2019-03-04] MEDS ORDERED: NACL 0.9% 500 ML 500 ML ONE (12:14)
[2019-03-04] MEDS ORDERED: XYLOCAINE 2% INFILTRATI ONE (12:14)
[2019-03-04] MEDS ORDERED: ANCEF/STERILE WATER 2 GM/20 ML 2 GM/20 ML SYRINGE IV ONE (12:14)
[2019-03-04] MEDS ORDERED: HEPARIN/NS 5000 UNIT/500ML(CATH LAB) 1,000 ML IR ONE (12:14)
[2019-03-04] MEDS ORDERED: DIPRIVAN 10 MG/ML 1,000 MG/100 ML BOTTLE IV ONE (12:37)
[2019-03-04] MEDS ORDERED: VERSED IV ONE (12:38)
[2019-03-04] MEDS ORDERED: KETALAR ONE (12:38)
[2019-03-04] MEDS ORDERED: SUBLIMAZE ONE (12:38)
[2019-03-04] MEDS ORDERED: HEPARIN 10,000 UNITS/10 ML ONE (13:18)
--- NOTE | 2019-03-04 15:00 | Post Anesthesia Evaluation ---
- Post Anesthesia Evaluation Patient Participated: Yes Airway Patent: Yes Stable Respiratory Function: Yes Nausea/Vomiting: No Temp > 96.8F: Yes Pain Manageable: Yes Adequeate Hydration: Yes Anesthesia Complications: No
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
[2019-03-04] MEDS: HALFPRIN EC PO SCH (17:23)
[2019-03-04] MEDS: PLAVIX PO SCH (17:23)
[2019-03-04] MEDS: celeXA PO SCH (17:23)
[2019-03-04] MEDS: HABITROL TD SCH (17:23)
[2019-03-04] MEDS: ZESTRIL PO SCH (17:23)
--- NOTE | 2019-03-04 18:18 | Operative Report ---
Operative Report Operative Report: Date of Procedure: 03/04/2019 Pre-operative Diagnosis: Right Iliac Artery Thrombus Post-operative Diagnosis: Same Procedure(s): 1. Ultrasound-Guided Access Right Common Femoral Artery 2. Angioplasty and Stent of Right Common Iliac Artery with 8 x 39 Viabahn VBX Balloon Expandable Stent Graft 3. Closure of Right Femoral Arteriotomy With ProGlide Closure Device 4. Radiologic Supervision with Interpretation Surgeon: Jaime Huynh M.D. Mushroom Growing Supervisor: None Anesthesia: Local/MAC EBL: Minimal Counts: Correct Complications: None Condition: Stable Findings: Successful placement of stent graft to exclude thrombus from flow in the right lower extremity. Specimen: None Indication: The patient is a 58-year-old male with a history of aortoiliac thrombus who presented to the emergency department with rethrombosis of his right iliac artery after stopping his anticoagulation at home. Diagnostic arteriogram confirmed the findings so he was scheduled for placement of a stent graft to exclude the thrombus from flow. He was given the risks, benefits, and alternative procedures and consented to the procedure. Description of Procedure: The patient was brought to the cork slabs sawyer and laid in supine position. After he was adequately sedated his right groin was prepped and draped in normal sterile fashion. Ultrasound was used to identify the right common femoral artery and confirmed patency. Once patency was confirmed over the last skin and soft tissue was anesthetized with lidocaine. An 11 blade was used to make a small stab incision and a hemostat was used to bluntly dissect down to the anterior surface of the right common femoral artery under ultrasound guidance. Using ultrasound guidance and micropuncture needle was used to puncture the anterior surface of the right common femoral artery and a 0.018 wire was advanced into the artery. The needle was removed and a micropuncture sheath was advanced over the wire. The dilator and wire were removed and a 0.035 Bentson wire was advanced into the aorta under fluoroscopy. A 5 [place] sheath was in place by Seldinger technique. An Omni Flush catheter was advanced into the aorta and an aortogram was performed revealing the level of the thrombus. I exchanged the 5 [place] sheath for 7 [place] 23 cm sheath and then advanced the 8 x 39 Viabahn VBX Balloon Expandable Stent Graft into position centering it over the area of thrombus. I pulled the sheath back and then inflated the stent graft trapping the thrombus in place. After deployment of the stent graft I removed the delivery catheter and then performed an arteriogram revealing exclusion of the thrombus from flow with brisk flow of contrast throughout the iliac system and no evidence of residual thrombus on the arteriogram. At this point I removed the sheath and then used a ProGlide to close the right femoral arteriotomy. The patient tolerated the procedure well. All sponge, needle, initially counts were correct. The patient was taken to the recovery area in stable condition.
[2019-03-04] MEDS: LANTUS SUB-Q SCH (22:53)
[2019-03-04] MEDS ORDERED: XANAX PO ONE (23:15)
[2019-03-05] MEDS: DUONEB *Not for PRN Use IH SCH ×4 (02:20→21:37)
[2019-03-05 05:31] LABS: Hematocrit 33.6 % (35.5-45.6); Hemoglobin 11.6 gm/dl (11.8-15.2); Mean Corpuscular HGB Conc 35 % (32-34); Mean Corpuscular Volume 87 fl (84-94); Platelet Count 315 K/mm3 (140-440); Red Blood Count 3.88 M/mm3 (3.65-5.03); Red Cell Distribution Width 13.9 % (13.2-15.2)
[2019-03-05] MEDS: HEPARIN/ 0.45% NACL-25,000 UNIT/500 ML 25,000 UNIT/500 ML BAG IV SCH ×2 (05:52→22:21)
[2019-03-05 05:55] LABS: Alanine Aminotransferase 13 units/L (7-56); Albumin 2.9 g/dL (3.9-5); BUN/Creatinine Ratio 20; Blood Urea Nitrogen 8 mg/dL (9-20); Calcium 8.1 mg/dL (8.4-10.2); Hemolysis Index 17
[2019-03-05] MEDS: PERCOCET 5/325 PO PRN ×3 (08:28→21:19)
[2019-03-05] MEDS: HumaLOG SUB-Q SCH ×5 (08:54→22:20)
--- NOTE | 2019-03-05 09:08 | Consultation ---
History of Present Illness Consult date: 03/05/19 Chief complaint: Open left AKA stump and gangrenous right foot - History of present illness History of present illness: 58 yo male s/p left AKA. He also has a gangrenous right distal foot. He is non-ambulatory. He does not want to have any surgery. There is no h/o DM. Past History Past Medical History: COPD, diabetes, hypertension, other (asthma) Medications and Allergies Allergies Allergy/AdvReac Type Severity Reaction Status Date / Time No Known Allergies Allergy Unverified 02/20/17 19:15 Home Medications Medication Instructions Recorded Confirmed Last Taken Type Citalopram [celeXA] 10 mg PO QDAY #30 tablet 02/25/17 03/03/19 Unknown Rx ALBUTEROL Inhaler(NF) [VENTOLIN 2 puff IH Q4H PRN #1 unit 11/27/18 03/03/19 Unknown Rx Inhaler(NF)] Acetaminophen [Acetaminophen TAB] 650 mg PO Q4H PRN #10 tablet 11/27/18 03/03/19 Unknown Rx Aspirin EC 81 mg PO QDAY #30 tablet 11/27/18 03/03/19 Unknown Rx Benzonatate [Tessalon Perles] 100 mg PO Q8H PRN #15 capsule 11/27/18 03/03/19 Un known Rx Budesonide/Formoterol Fumarate 2 puff IH BID #1 hfa.aer.ad 11/27/18 03/03/19 Unknown Rx [Symbicort 160-4.5 Mcg Inhaler] Carvedilol [Coreg] 3.125 mg PO BID #60 tablet 11/27/18 03/03/19 Unknown Rx Furosemide [Lasix TAB] 20 mg PO QDAY #30 tablet 11/27/18 03/03/19 Unknown Rx Ipratropium/Albuter (Nf) 2 puff IH BID #1 inha 11/27/18 03/03/19 Unknown Rx [Combivent (Nf)] Lisinopril [Zestril TAB] 5 mg PO QDAY #30 tablet 11/27/18 03/03/19 Unknown Rx Nicotine [Habitrol] 21 mg TD QDAY #14 patch 11/27/18 03/03/19 Unknown Rx Spironolactone [Aldactone] 25 mg PO QDAY #30 tablet 11/27/18 03/03/19 Unknown Rx cefUROXime [Ceftin] 500 mg PO Q12H #10 tablet 11/27/18 03/03/19 Unknown Rx methylPREDNISolone [Medrol Dose 1 dose PO QDAY #1 pack 11/27/18 03/03/19 Unknown Rx [place]ble] oxyCODONE /ACETAMINOPHEN [Percocet 1 tab PO Q6H PRN #15 tablet 11/27/18 03/03/19 Unknown Rx 5/325 mg] Active Meds: Active Medications Acetaminophen (Tylenol) 650 mg PO Q4H PRN PRN Reason: Pain MILD(1-3)/Fever >100.5/[place] Albuterol (Proventil) 2.5 mg IH Q4H PRN PRN Reason: Shortness Of Breath Albuterol/Ipratropium (Duoneb *Not For Prn Use*) 1 ampul IH Q6HRT [facility] Last Admin: 03/05/19 02:20 Dose: Not Given Documented by: Arformoterol Tartrate (Brovana Nebu) 15 mcg IH Q12HRT [facility] Last Admin: 03/04/19 21:18 Dose: 15 mcg Documented by: Aspirin (Halfprin Ec) 81 mg PO QDAY [facility] Last Admin: 03/04/19 17:23 Dose: 81 mg Documented by: Benzonatate (Tessalon Perles) 100 mg PO Q8H PRN PRN Reason: Cough Budesonide (Pulmicort) 0.5 mg IH Q12HRT [facility] Last Admin: 03/04/19 21:18 Dose: 0.5 mg Documented by: Carvedilol (Coreg) 3.125 mg PO BID [facility] Last Admin: 03/04/19 22:50 Dose: 3.125 mg Documented by: Citalopram Hydrobromide (Celexa) 10 mg PO QDAY [facility] Last Admin: 03/04/19 17:23 Dose: 10 mg Documented by: Clopidogrel Bisulfate (Plavix) 75 mg PO QDAY [facility] Last Admin: 03/04/19 17:23 Dose: 75 mg Documented by: Dextrose (D50w (25gm) Syringe) 50 ml IV PRN PRN PRN Reason: Hypoglycemia Heparin Sodium/Sodium Chloride (Heparin/ 0.45% Nacl-25,000 Unit/500 Ml) 25,000 unit in 500 mls @ 21 mls/hr IV TITR [facility]; Protocol Last Titration: 03/05/19 06:27 Dose: 1,650 units/hr, 33 mls/hr Documented by: Insulin Glargine (Lantus) 10 units SUB-Q QHS [facility] Last Admin: 03/04/19 22:53 Dose: 10 units Documented by: Insulin Human Lispro (Humalog) 0 unit SUB-Q ACHS [facility]; Protocol Last Admin: 03/05/19 08:54 Dose: 8 unit Documented by: Lisinopril (Zestril) 5 mg PO QDAY [facility] Last Admin: 03/04/19 17:23 Dose: 5 mg Documented by: Nicotine (Habitrol) 21 mg TD QDAY [facility] Last Admin: 03/04/19 17:23 Dose: 21 mg Documented by: Ondansetron HCl (Zofran) 4 mg IV Q8H PRN PRN Reason: Nausea And Vomiting Oxycodone/Acetaminophen (Percocet 5/325) 1 tab PO Q6H PRN PRN Reason: Pain , Severe (7-10) Last Admin: 03/05/19 08:28 Dose: 1 tab Documented by: Sodium Chloride (Sodium Chloride Flush Syringe 10 Ml) 10 ml IV BID [facility] Last Admin: 03/04/19 21:05 Dose: Not Given Documented by: Sodium Chloride (Sodium Chloride Flush Syringe 10 Ml) 10 ml IV PRN PRN PRN Reason: LINE FLUSH Review of Systems All systems: negative (none) Exam Vital Signs Pulse Resp BP Pulse Ox 118 H 20 123/58 98 03/02/19 03:13 03/02/19 03:13 03/02/19 03:13 03/02/19 03:13 - General physical appearance Positive: well developed, well nourished, no distress - Eyes Positive: PERRL, normal occular movement - ENT Positive: normal pinna, normal nares, normal mucosa, no hearing loss, no congestion - Neck Positive: no masses, no bruits, trachea midline, no venous distension - Respiratory Positive: normal expansion, normal respiratory effort, clear to auscultation - Cardiovascular Rhythm: regular Heart Sounds: Present: S1 & S2. Absent: rub, click - Extremities Extremities: abnormal (The left AKA stump is open with a segment of necrotic skin/SQ measuring 4.5 X 1.5 cm. There is no active infection. The right foot has dry gangrene of all of the toes and the distal half of his foot on the plantar aspect. Again, there are no signs of infection.) - Breasts Breasts: deferred - Abdomen Abdomen: Present: soft, bowel sounds normal. Absent: tender, distended Hernia: none - Genitourinary Male Genitourinary: deferred - Neurologic Neurologic: alert and oriented to time, place and person, motor strength and sensation are grossly intact - Psychiatric Psychiatric: appropriate mood/affect, intact judgment & insight Results - Labs 03/05/19 05:05 03/05/19 05:05 Abnormal lab results 03/04/19 03/04/19 03/04/19 Range/Units 07:38 08:06 12:43 Hgb (11.8-15.2) gm/dl Hct (35.5-45.6) % MCHC (32-34) % Heparin Anti-Xa Level (0.3-0.7) U.I./ml Sodium 135 L (137-145) mmol/L Chloride 96.6 L (98-107) mmol/L BUN 8 L (9-20) mg/dL Creatinine 0.3 L (0.8-1.5) mg/dL Glucose 102 H (75-100) mg/dL POC Glucose 164 H 118 H (70-105) Calcium 8.1 L (8.4-10.2) mg/dL Total Protein (6.3-8.2) g/dL Albumin (3.9-5) g/dL 03/04/19 03/04/19 03/04/19 Range/Units 15:59 20:51 21:23 Hgb (11.8-15.2) gm/dl Hct (35.5-45.6) % MCHC (32-34) % Heparin Anti-Xa Level < 0.10 L (0.3-0.7) U.I./ml Sodium (137-145) mmol/L Chloride (98-107) mmol/L BUN (9-20) mg/dL Creatinine (0.8-1.5) mg/dL Glucose (75-100) mg/dL POC Glucose 126 H 281 H (70-105) Calcium (8.4-10.2) mg/dL Total Protein (6.3-8.2) g/dL Albumin (3.9-5) g/dL 03/05/19 03/05/19 03/05/19 Range/Units 05:05 05:05 05:05 Hgb 11.6 L (11.8-15.2) gm/dl Hct 33.6 L (35.5-45.6) % MCHC 35 H (32-34) % Heparin Anti-Xa Level 0.10 L (0.3-0.7) U.I./ml Sodium (137-145) mmol/L Chloride (98-107) mmol/L BUN 8 L (9-20) mg/dL Creatinine 0.4 L (0.8-1.5) mg/dL Glucose 121 H (75-100) mg/dL POC Glucose (70-105) Calcium 8.1 L (8.4-10.2) mg/dL Total Protein 6.2 L (6.3-8.2) g/dL Albumin 2.9 L (3.9-5) g/dL 03/05/19 Range/Units 08:18 Hgb (11.8-15.2) gm/dl Hct (35.5-45.6) % MCHC (32-34) % Heparin Anti-Xa Level (0.3-0.7) U.I./ml Sodium (137-145) mmol/L Chloride (98-107) mmol/L BUN (9-20) mg/dL Creatinine (0.8-1.5) mg/dL Glucose (75-100) mg/dL POC Glucose 392 H (70-105) Calcium (8.4-10.2) mg/dL Total Protein (6.3-8.2) g/dL Albumin (3.9-5) g/dL Diabetes panel 03/04/19 03/05/19 Range/Units 08:06 05:05 Sodium 135 L 138 (137-145) mmol/L Potassium 3.6 4.1 (3.6-5.0) mmol/L Chloride 96.6 L 99.3 (98-107) mmol/L Carbon Dioxide 29 30 (22-30) mmol/L BUN 8 L 8 L (9-20) mg/dL Creatinine 0.3 L 0.4 L (0.8-1.5) mg/dL Glucose 102 H 121 H (75-100) mg/dL Calcium 8.1 L 8.1 L (8.4-10.2) mg/dL AST 18 (5-40) units/L ALT 13 (7-56) units/L Alkaline Phosphatase 75 (35-129) units/L Total Protein 6.2 L (6.3-8.2) g/dL Albumin 2.9 L (3.9-5) g/dL Calcium panel 03/04/19 03/05/19 Range/Units 08:06 05:05 Calcium 8.1 L 8.1 L (8.4-10.2) mg/dL Albumin 2.9 L (3.9-5) g/dL Pituitary panel 03/04/19 03/05/19 Range/Units 08:06 05:05 Sodium 135 L 138 (137-145) mmol/L Potassium 3.6 4.1 (3.6-5.0) mmol/L Chloride 96.6 L 99.3 (98-107) mmol/L Carbon Dioxide 29 30 (22-30) mmol/L BUN 8 L 8 L (9-20) mg/dL Creatinine 0.3 L 0.4 L (0.8-1.5) mg/dL Glucose 102 H 121 H (75-100) mg/dL Calcium 8.1 L 8.1 L (8.4-10.2) mg/dL Adrenal panel 03/04/19 03/05/19 Range/Units 08:06 05:05 Sodium 135 L 138 (137-145) mmol/L Potassium 3.6 4.1 (3.6-5.0) mmol/L Chloride 96.6 L 99.3 (98-107) mmol/L Carbon Dioxide 29 30 (22-30) mmol/L BUN 8 L 8 L (9-20) mg/dL Creatinine 0.3 L 0.4 L (0.8-1.5) mg/dL Glucose 102 H 121 H (75-100) mg/dL Calcium 8.1 L 8.1 L (8.4-10.2) mg/dL Total Bilirubin 0.40 (0.1-1.2) mg/dL AST 18 (5-40) units/L ALT 13 (7-56) units/L Alkaline Phosphatase 75 (35-129) units/L Total Protein 6.2 L (6.3-8.2) g/dL Albumin 2.9 L (3.9-5) g/dL 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 2) He also needs debridement of his right AKA stump. 3) He refuses any surgical intervention without a 2nd opinion. 4) Dr. Calli Ortega has graciously consented to rendering a 2nd opinion.
[2019-03-05] MEDS: PULMICORT IH SCH ×2 (09:09→21:37)
[2019-03-05] MEDS: BROVANA NEBU IH SCH ×2 (09:09→21:36)
[2019-03-05] MEDS: HABITROL TD SCH (10:17)
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
[2019-03-05] MEDS: ZESTRIL PO SCH (10:21)
[2019-03-05] MEDS: COREG PO SCH ×2 (10:21→21:34)
[2019-03-05] MEDS: celeXA PO SCH (10:21)
[2019-03-05] MEDS: PLAVIX PO SCH (10:21)
[2019-03-05] MEDS: SODIUM CHLORIDE FLUSH SYRINGE 10 ML IV SCH ×2 (10:22→21:25)
[2019-03-05] MEDS: HALFPRIN EC PO SCH (10:31)
[2019-03-05] MEDS ORDERED: XANAX PO ONE (13:00)
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
--- NOTE | 2019-03-05 13:44 | Event Note ---
Date: 03/05/[address] Ortega's note. Pt is now agreeable to a right TMA and debridement of his left AKA stump. He does not want to consider a more proximal RLE amputation. He is aware that a right TMA may have problems healing. I offered to put him on the schedule for tomorrow but the pt said that his is "tired" and surgery tomorrow is "too soon". He said that next week would be good. I will put him on the schedule for 03/11/19. Pt can most certainly be discharged prior to that time and he can re-present on 03/11/10 for his TMA.
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
[2019-03-05] MEDS: MS CONTIN ER PO SCH ×2 (16:28→21:25)
[2019-03-05] MEDS: LANTUS SUB-Q SCH (22:20)
[2019-03-06] MEDS: PERCOCET 5/325 PO PRN ×4 (01:07→19:50)
[2019-03-06] MEDS: DUONEB *Not for PRN Use IH SCH ×4 (01:50→21:12)
[2019-03-06] MEDS ORDERED: HEPARIN 10,000 UNITS/10 ML IV ONE (03:17)
--- NOTE | 2019-03-06 07:35 | Progress Note ---
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 He is aware of the extent of the surgery and that the wound may have difficulty healing. He is also aware that the wound will be left open as there is not enough of viable plantar flap to cover the wound. We will proceed on Monday, March 11, 2019. Subjective Date of service: 03/06/19 Patient Reports: Positive: no new complaints Objective Vital Signs - 12hr 03/05/19 03/05/19 03/05/19 21:34 21:37 23:13 Temperature 98.5 F Pulse Rate 80 87 Pulse Rate [ 83 Posterior] Respiratory 20 Rate Respiratory 20 Rate [Posterior ] Blood Pressure 116/69 108/67 O2 Sat by Pulse 92 Oximetry 03/06/19 05:48 Temperature 98.4 F Pulse Rate 85 Pulse Rate [ Posterior] Respiratory 18 Rate Respiratory Rate [Posterior ] Blood Pressure 123/78 O2 Sat by Pulse 94 Oximetry - Musculoskeletal other (No changes) - Labs 03/05/19 05:05 03/05/19 05:05
[2019-03-06] MEDS: HumaLOG SUB-Q SCH ×4 (08:20→22:49)
[2019-03-06] MEDS: PULMICORT IH SCH ×2 (09:00→21:09)
[2019-03-06] MEDS: BROVANA NEBU IH SCH ×2 (09:00→21:09)
[2019-03-06] MEDS: celeXA PO SCH (09:54)
[2019-03-06] MEDS: PLAVIX PO SCH (09:54)
[2019-03-06] MEDS: HABITROL TD SCH (09:54)
[2019-03-06] MEDS: COREG PO SCH ×2 (09:58→22:58)
[2019-03-06] MEDS: MS CONTIN ER PO SCH ×2 (09:58→22:47)
[2019-03-06] MEDS: SODIUM CHLORIDE FLUSH SYRINGE 10 ML IV SCH ×2 (09:59→23:04)
[2019-03-06] MEDS: ZESTRIL PO SCH (10:00)
[2019-03-06] MEDS: HALFPRIN EC PO SCH (10:49)
[2019-03-06] MEDS: HEPARIN/ 0.45% NACL-25,000 UNIT/500 ML 25,000 UNIT/500 ML BAG IV SCH (12:18)
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
[2019-03-06] MEDS: LANTUS SUB-Q SCH (22:58)
[2019-03-07] MEDS: RESTORIL PO PRN (01:21)
[2019-03-07] MEDS: DUONEB *Not for PRN Use IH SCH ×4 (02:00→20:48)
[2019-03-07] MEDS: PERCOCET 5/325 PO PRN ×3 (06:04→20:23)
[2019-03-07] MEDS: HumaLOG SUB-Q SCH ×4 (07:30→22:01)
[2019-03-07 08:08] LABS: Hematocrit 33.9 % (35.5-45.6); Hemoglobin 11.4 gm/dl (11.8-15.2)
[2019-03-07] MEDS: BROVANA NEBU IH SCH ×2 (08:49→20:48)
[2019-03-07] MEDS: PULMICORT IH SCH ×2 (08:49→20:48)
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
[2019-03-07] MEDS: PLAVIX PO SCH (10:12)
[2019-03-07] MEDS: HALFPRIN EC PO SCH (10:12)
[2019-03-07] MEDS: MS CONTIN ER PO SCH ×2 (10:12→21:32)
[2019-03-07] MEDS: HABITROL TD SCH (10:13)
[2019-03-07] MEDS: celeXA PO SCH (10:13)
[2019-03-07] MEDS: ZESTRIL PO SCH (10:14)
[2019-03-07] MEDS: COREG PO SCH ×2 (10:14→21:32)
[2019-03-07] MEDS: SODIUM CHLORIDE FLUSH SYRINGE 10 ML IV SCH ×2 (10:15→21:32)
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
[2019-03-07] MEDS: HEPARIN/ 0.45% NACL-25,000 UNIT/500 ML 25,000 UNIT/500 ML BAG IV SCH (16:23)
[2019-03-07] MEDS: LANTUS SUB-Q SCH (22:02)
[2019-03-08] MEDS: DUONEB *Not for PRN Use IH SCH ×4 (02:00→19:16)
[2019-03-08] MEDS: HEPARIN/ 0.45% NACL-25,000 UNIT/500 ML 25,000 UNIT/500 ML BAG IV SCH ×2 (06:01→18:09)
[2019-03-08] MEDS: HumaLOG SUB-Q SCH ×4 (08:13→22:54)
[2019-03-08] MEDS: PERCOCET 5/325 PO PRN ×3 (08:57→21:15)
[2019-03-08] MEDS: PULMICORT IH SCH ×2 (09:06→19:15)
[2019-03-08] MEDS: BROVANA NEBU IH SCH ×2 (09:06→19:15)
[2019-03-08] MEDS: ATIVAN IV PRN (09:22)
[2019-03-08] MEDS: COREG PO SCH ×2 (11:48→21:20)
[2019-03-08] MEDS: PLAVIX PO SCH (11:48)
[2019-03-08] MEDS: celeXA PO SCH (11:49)
[2019-03-08] MEDS: ZESTRIL PO SCH (11:49)
[2019-03-08] MEDS: HALFPRIN EC PO SCH (11:49)
[2019-03-08] MEDS: MS CONTIN ER PO SCH ×2 (11:49→21:17)
[2019-03-08] MEDS: SODIUM CHLORIDE FLUSH SYRINGE 10 ML IV SCH ×2 (11:56→21:22)
[2019-03-08] MEDS: HABITROL TD SCH (12:09)
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
--- NOTE | 2019-03-08 19:33 | Cat Scan Report ---
CT head/brain wo con INDICATION: seizure on anticoagulation. TECHNIQUE: Routine CT head without contrast. Sagittal and coronal reformatted images were obtained. A ll CT scans at this location are performed using CT dose reduction for ALARA by means of automated ex posure control. COMPARISON: No previous imaging studies are available for comparison. FINDINGS: BRAIN / INTRACRANIAL CONTENTS: No acute hemorrhage, mass effect, midline shift, hydrocephalus, or acu te, large territorial infarct. Encephalomalacia is seen in right superior frontal gyrus, right middle frontal gyrus and in the right postcentral gyrus and right superior parietal lobule. Occipital decom pressive craniectomy changes are seen. Encephalomalacia is seen in both cerebral hemispheres larger o n the right side. CSF-containing space in the retrocerebellar area is probably a large cisterna magna . Subtle periventricular low density areas are seen probably due to microvascular angiopathy. Are se en. CRANIOCERVICAL JUNCTION: No significant abnormality. ORBITS: No significant abnormality of visualized orbits. SINUSES / MASTOIDS: No significant abnormality of the visualized paranasal sinuses or mastoid air tiesha ls. ADDITIONAL FINDINGS: None. IMPRESSION: Encephalomalacia in the right high convexity involving both frontal and parietal lobes Postoperative changes in the posterior fossa I do not see CT findings to suggest acute parenchymal lesion or hemorrhage. Signer Name: Jeannette Tran MD Signed: 03/08/2019 7:29 PM Workstation Name: [id number]
[2019-03-08] MEDS: XANAX PO SCH (21:16)
[2019-03-08] MEDS: LANTUS SUB-Q SCH (22:54)
[2019-03-09] MEDS: DUONEB *Not for PRN Use IH SCH ×5 (02:54→20:10)
[2019-03-09] MEDS: PERCOCET 5/325 PO PRN ×2 (07:46→16:43)
[2019-03-09] MEDS: HEPARIN/ 0.45% NACL-25,000 UNIT/500 ML 25,000 UNIT/500 ML BAG IV SCH ×2 (07:49→23:19)
[2019-03-09] MEDS: PULMICORT IH SCH ×2 (07:53→20:09)
[2019-03-09] MEDS: BROVANA NEBU IH SCH ×2 (07:53→20:09)
[2019-03-09] MEDS: HumaLOG SUB-Q SCH ×4 (07:54→23:18)
[2019-03-09 08:17] LABS: Hematocrit 32.8 % (35.5-45.6); Hemoglobin 11.3 gm/dl (11.8-15.2)
--- NOTE | 2019-03-09 09:25 | Progress Note ---
Subjective Date of service: 03/09/19 Principal diagnosis: PVD with arterial embolism Interval history: I remmeber this patient very well from a previous admission and the two rather noted stroke in the right parietal lobe of the brain are not any different hsi mental status is the same as the previous discharge mental state this man has very strong hx of meth/ opioid abuse- and is mentally imablenced the current CT is unchanged will need nursing home placement Objective - Vital Sign Vital Signs - 12hr 03/09/19 03/09/19 03/09/19 00:03 06:16 07:45 Temperature 98.1 F 98.2 F Pulse Rate 79 69 Pulse Rate [ 69 Anterior Bilateral Throughout] Pulse Rate [ 67 Posterior] Respiratory 20 18 Rate Respiratory 18 Rate [Anterior Bilateral Throughout] Respiratory 18 Rate [Posterior ] Blood Pressure 113/73 121/71 O2 Sat by Pulse 89 93 Oximetry 03/09/19 03/09/19 08:01 08:25 Temperature Pulse Rate Pulse Rate [ Anterior Bilateral Throughout] Pulse Rate [ Posterior] Respiratory Rate Respiratory Rate [Anterior Bilateral Throughout] Respiratory Rate [Posterior ] Blood Pressure O2 Sat by Pulse 91 91 Oximetry - Laboratory Findings CBC and BMP: 03/09/19 07:30 03/05/19 05:05 Abnormal Lab Findings: Abnormal Labs 03/02/19 03/02/19 03/02/19 04:23 04:23 17:10 WBC 11.9 H Hgb 11.4 L Hct 33.0 L MCHC 35 H [place] % (Auto) 9.8 H [place] # 1.2 H Seg Neutrophils # 8.3 H Heparin Anti-Xa Level Sodium 136 L Potassium 3.0 L Chloride 96.7 L Carbon Dioxide 32 H BUN Creatinine 0.5 L Glucose 256 H POC Glucose 394 H Calcium Total Protein Albumin 03/02/19 03/03/19 03/03/19 21:37 07:45 16:43 WBC Hgb Hct MCHC [place] % (Auto) [place] # Seg Neutrophils # Heparin Anti-Xa Level Sodium Potassium Chloride Carbon Dioxide BUN Creatinine Glucose POC Glucose 134 H 154 H 257 H Calcium Total Protein Albumin 03/03/19 03/03/19 03/04/19 20:50 21:44 05:19 WBC Hgb Hct MCHC [place] % (Auto) [place] # Seg Neutrophils # Heparin Anti-Xa Level < 0.10 L 0.10 L Sodium Potassium Chloride Carbon Dioxide BUN Creatinine Glucose POC Glucose 186 H Calcium Total Protein Albumin 03/04/19 03/04/19 03/04/19 07:38 08:06 12:43 WBC Hgb Hct MCHC [place] % (Auto) [place] # Seg Neutrophils # Heparin Anti-Xa Level Sodium 135 L Potassium Chloride 96.6 L Carbon Dioxide BUN 8 L Creatinine 0.3 L Glucose 102 H POC Glucose 164 H 118 H Calcium 8.1 L Total Protein Albumin 03/04/19 03/04/19 03/04/19 15:59 20:51 21:23 WBC Hgb Hct MCHC [place] % (Auto) [place] # Seg Neutrophils # Heparin Anti-Xa Level < 0.10 L Sodium Potassium Chloride Carbon Dioxide BUN Creatinine Glucose POC Glucose 126 H 281 H Calcium Total Protein Albumin 03/05/19 03/05/19 03/05/19 05:05 05:05 05:05 WBC Hgb 11.6 L Hct 33.6 L MCHC 35 H [place] % (Auto) [place] # Seg Neutrophils # Heparin Anti-Xa Level 0.10 L Sodium Potassium Chloride Carbon Dioxide BUN 8 L Creatinine 0.4 L Glucose 121 H POC Glucose Calcium 8.1 L Total Protein 6.2 L Albumin 2.9 L 03/05/19 03/05/19 03/05/19 08:18 12:16 16:33 WBC Hgb Hct MCHC [place] % (Auto) [place] # Seg Neutrophils # Heparin Anti-Xa Level Sodium Potassium Chloride Carbon Dioxide BUN Creatinine Glucose POC Glucose 392 H 133 H 156 H Calcium Total Protein Albumin 03/05/19 03/05/19 03/06/19 16:45 21:52 01:06 WBC Hgb Hct MCHC [place] % (Auto) [place] # Seg Neutrophils # Heparin Anti-Xa Level 0.18 L < 0.10 L Sodium Potassium Chloride Carbon Dioxide BUN Creatinine Glucose POC Glucose 177 H Calcium Total Protein Albumin 03/06/19 03/06/19 03/06/19 08:23 11:19 16:40 WBC Hgb Hct MCHC [place] % (Auto) [place] # Seg Neutrophils # Heparin Anti-Xa Level Sodium Potassium Chloride Carbon Dioxide BUN Creatinine Glucose POC Glucose 107 H 229 H 172 H Calcium Total Protein Albumin 03/06/19 03/07/19 03/07/19 22:02 07:36 07:47 WBC Hgb 11.4 L Hct 33.9 L MCHC [place] % (Auto) [place] # Seg Neutrophils # Heparin Anti-Xa Level Sodium Potassium Chloride Carbon Dioxide BUN Creatinine Glucose POC Glucose 119 H 121 H Calcium Total Protein Albumin 03/07/19 03/07/19 03/07/19 07:47 12:09 16:43 WBC Hgb Hct MCHC [place] % (Auto) [place] # Seg Neutrophils # Heparin Anti-Xa Level 0.23 L Sodium Potassium Chloride Carbon Dioxide BUN Creatinine Glucose POC Glucose 186 H 194 H Calcium Total Protein Albumin 03/07/19 03/08/19 03/08/19 21:42 08:02 11:35 WBC Hgb Hct MCHC [place] % (Auto) [place] # Seg Neutrophils # Heparin Anti-Xa Level Sodium Potassium Chloride Carbon Dioxide BUN Creatinine Glucose POC Glucose 174 H 133 H 130 H Calcium Total Protein Albumin 03/08/19 03/09/19 03/09/19 21:40 07:30 07:40 WBC Hgb 11.3 L Hct 32.8 L MCHC [place] % (Auto) [place] # Seg Neutrophils # Heparin Anti-Xa Level Sodium Potassium Chloride Carbon Dioxide BUN Creatinine Glucose POC Glucose 194 H 149 H Calcium Total Protein Albumin
[2019-03-09] MEDS: ZESTRIL PO SCH (10:36)
[2019-03-09] MEDS: COREG PO SCH ×2 (10:37→23:18)
[2019-03-09] MEDS: XANAX PO SCH ×2 (10:37→23:18)
[2019-03-09] MEDS: HABITROL TD SCH (10:37)
[2019-03-09] MEDS: PLAVIX PO SCH (10:37)
[2019-03-09] MEDS: celeXA PO SCH (10:37)
[2019-03-09] MEDS: MS CONTIN ER PO SCH ×2 (10:38→23:18)
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
[2019-03-09] MEDS: SODIUM CHLORIDE FLUSH SYRINGE 10 ML IV SCH (12:55)
[2019-03-09] MEDS: LANTUS SUB-Q SCH (23:18)
--- NOTE | 2019-03-10 01:33 | Consultation ---
HISTORY OF PRESENT ILLNESS: This is a 58-year-old white male that I am familiar with, having seen him previously on his prior admission. He presents with a history of being brought to the Emergency Room with complaints of difficulty with dealing with family members. According to the reports, he had developed agitation, confusion and was unable to care for himself or live with anyone. He had previously been hospitalized here and I took care of him during that admission when 2 areas in his brain were bleeding as a result of IV drug abuse. This was most likely methamphetamine. The hemorrhagic strokes in the right parietal lobe, there were 2 areas. It subsequently did resolve, improved considerably over time. He has a prior history of having a prior stroke in the right cerebellar hemisphere. He was in a prolonged coma about 6 months prior to that at [facility]. At this point, he continues to complain of weakness, agitation. He had been taking oxycodone, Ceftin, Aldactone. He had also been taking Habitrol, Zestril, albuterol. The patient had been on medications with aspirin. He was not taking anticoagulants at time of admission. My examination at this point shows him to be alert, recognizes me. He talks semi-appropriately. He does seem a little confused, has difficulty orienting himself and space, is trying to feed himself, but could not find his food tray because of his left visual field cut. His speech is relatively slurred, hoarse, but this is related to the long period of time he is intubated on his prior admission. He does not have tremors or asterixis. The patient is not agitated at all. He seems very cooperative. IMPRESSION: Encephalopathic related to prior strokes at least 3, possibly 4. PLAN: I do not think he has a new stroke from reviewing his CT scan of the head yesterday, which was obtained on the 03/08/2019. I compared this to my previous CT report that I remember quite well and these areas are much smaller. I do not see any evidence to suggest he has an aneurysm developed in this region. We would recommend following this. Plan to obtain an EEG on the patient to further assess the patient's condition. JOB# [id number] DEREJE/NTS
[2019-03-10] MEDS: SODIUM CHLORIDE FLUSH SYRINGE 10 ML IV SCH ×3 (07:03→23:22)
[2019-03-10] MEDS: BROVANA NEBU IH SCH ×2 (07:20→22:26)
[2019-03-10] MEDS: PULMICORT IH SCH ×2 (07:20→22:26)
[2019-03-10] MEDS: DUONEB *Not for PRN Use IH SCH ×3 (07:22→22:26)
[2019-03-10] MEDS: HumaLOG SUB-Q SCH ×4 (07:30→22:00)
[2019-03-10] MEDS: PERCOCET 5/325 PO PRN (07:48)
[2019-03-10 08:36] LABS: Hematocrit 33.7 % (35.5-45.6); Hemoglobin 11.3 gm/dl (11.8-15.2); Mean Corpuscular HGB Conc 34 % (32-34); Mean Corpuscular Volume 87 fl (84-94); Platelet Count 457 K/mm3 (140-440); Red Blood Count 3.87 M/mm3 (3.65-5.03); Red Cell Distribution Width 14.6 % (13.2-15.2)
[2019-03-10 08:56] LABS: BUN/Creatinine Ratio 28; Blood Urea Nitrogen 14 mg/dL (9-20); Calcium 8.7 mg/dL (8.4-10.2); Hemolysis Index 11
[2019-03-10] MEDS: HABITROL TD SCH (09:57)
[2019-03-10] MEDS: MS CONTIN ER PO SCH ×2 (09:57→23:20)
[2019-03-10] MEDS: XANAX PO SCH ×2 (09:57→23:20)
[2019-03-10] MEDS: celeXA PO SCH (09:57)
[2019-03-10] MEDS: ZESTRIL PO SCH (09:57)
[2019-03-10] MEDS: PLAVIX PO SCH (09:57)
[2019-03-10] MEDS: COREG PO SCH ×2 (09:57→23:21)
[2019-03-10] MEDS ORDERED: NACL 0.9% 1000 ML 1,000 ML ONE (11:27)
[2019-03-10] MEDS ORDERED: NACL 0.9% 1000 ML 1,000 ML IV ONE (11:30)
[2019-03-10] MEDS: HEPARIN/ 0.45% NACL-25,000 UNIT/500 ML 25,000 UNIT/500 ML BAG IV SCH (13:00)
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
[2019-03-10] MEDS: LANTUS SUB-Q SCH (23:21)
[2019-03-11 05:30] LABS: Hematocrit 32.8 % (35.5-45.6); Mean Corpuscular HGB Conc 34 % (32-34); Mean Corpuscular Volume 88 fl (84-94); Platelet Count 457 K/mm3 (140-440); Red Blood Count 3.72 M/mm3 (3.65-5.03); Red Cell Distribution Width 14.8 % (13.2-15.2)
[2019-03-11 05:43] LABS: BUN/Creatinine Ratio 14; Blood Urea Nitrogen 7 mg/dL (9-20); Calcium 8.5 mg/dL (8.4-10.2); Hemolysis Index 15
[2019-03-11 05:49] LABS: INR 1.04 (0.87-1.13)
[2019-03-11] MEDS: PERCOCET 5/325 PO PRN ×3 (06:15→18:25)
[2019-03-11] MEDS: BROVANA NEBU IH SCH ×2 (09:01→21:35)
[2019-03-11] MEDS: PULMICORT IH SCH ×2 (09:01→21:36)
[2019-03-11] MEDS: DUONEB *Not for PRN Use IH SCH ×3 (09:02→21:36)
[2019-03-11] MEDS: MS CONTIN ER PO SCH ×2 (10:09→21:49)
[2019-03-11] MEDS: HumaLOG SUB-Q SCH ×4 (10:09→22:35)
[2019-03-11] MEDS: COREG PO SCH ×2 (10:10→21:50)
[2019-03-11] MEDS: PLAVIX PO SCH (10:10)
[2019-03-11] MEDS: SODIUM CHLORIDE FLUSH SYRINGE 10 ML IV SCH ×2 (10:10→21:51)
[2019-03-11] MEDS: XANAX PO SCH ×2 (10:10→21:49)
[2019-03-11] MEDS: celeXA PO SCH (10:10)
[2019-03-11] MEDS: HABITROL TD SCH (10:10)
--- NOTE | 2019-03-11 10:15 | Progress Note ---
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 Current Visit: Yes Status: Acute Plan to address problem: 1) Right open TMA and left AKA debridement tomorrow at 11 am 2) NPO after MN 3) Hold Heparin at 7 am tomorrow Subjective Date of service: 03/11/19 Patient Reports: Positive: no new complaints Objective Vital Signs - 12hr 03/11/19 03/11/19 00:30 05:49 Temperature 98.8 F 98.8 F Pulse Rate 78 84 Respiratory 20 18 Rate Blood Pressure 133/74 123/64 O2 Sat by Pulse 92 92 Oximetry - Labs 03/11/19 04:57 03/11/19 04:57 Diabetes panel 03/11/19 Range/Units 04:57 Sodium 136 L (137-145) mmol/L Potassium 4.1 (3.6-5.0) mmol/L Chloride 103.8 (98-107) mmol/L Carbon Dioxide 23 (22-30) mmol/L BUN 7 L (9-20) mg/dL Creatinine 0.5 L (0.8-1.5) mg/dL Glucose 126 H (75-100) mg/dL Calcium 8.5 (8.4-10.2) mg/dL Calcium panel 03/11/19 Range/Units 04:57 Calcium 8.5 (8.4-10.2) mg/dL Pituitary panel 03/11/19 Range/Units 04:57 Sodium 136 L (137-145) mmol/L Potassium 4.1 (3.6-5.0) mmol/L Chloride 103.8 (98-107) mmol/L Carbon Dioxide 23 (22-30) mmol/L BUN 7 L (9-20) mg/dL Creatinine 0.5 L (0.8-1.5) mg/dL Glucose 126 H (75-100) mg/dL Calcium 8.5 (8.4-10.2) mg/dL Adrenal panel 03/11/19 Range/Units 04:57 Sodium 136 L (137-145) mmol/L Potassium 4.1 (3.6-5.0) mmol/L Chloride 103.8 (98-107) mmol/L Carbon Dioxide 23 (22-30) mmol/L BUN 7 L (9-20) mg/dL Creatinine 0.5 L (0.8-1.5) mg/dL Glucose 126 H (75-100) mg/dL Calcium 8.5 (8.4-10.2) mg/dL
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
[2019-03-11] MEDS: HEPARIN/ 0.45% NACL-25,000 UNIT/500 ML 25,000 UNIT/500 ML BAG IV SCH (15:15)
[2019-03-11] MEDS: LANTUS SUB-Q SCH (21:49)
[2019-03-12] MEDS: PERCOCET 5/325 PO PRN (05:44)
[2019-03-12] MEDS: HEPARIN/ 0.45% NACL-25,000 UNIT/500 ML 25,000 UNIT/500 ML BAG IV SCH (05:48)
[2019-03-12 07:16] LABS: Hematocrit 31.5 % (35.5-45.6); Hemoglobin 10.9 gm/dl (11.8-15.2); Mean Corpuscular HGB Conc 35 % (32-34); Mean Corpuscular Volume 87 fl (84-94); Platelet Count 430 K/mm3 (140-440); Red Blood Count 3.63 M/mm3 (3.65-5.03); Red Cell Distribution Width 15.3 % (13.2-15.2)
[2019-03-12 07:38] LABS: BUN/Creatinine Ratio 16; Blood Urea Nitrogen 8 mg/dL (9-20); Calcium 8.7 mg/dL (8.4-10.2); Hemolysis Index 14
[2019-03-12] MEDS: HumaLOG SUB-Q SCH ×4 (08:31→22:39)
[2019-03-12] MEDS: BROVANA NEBU IH SCH ×2 (09:44→19:23)
[2019-03-12] MEDS: DUONEB *Not for PRN Use IH SCH ×3 (09:44→19:23)
[2019-03-12] MEDS: PULMICORT IH SCH ×2 (09:45→19:23)
[2019-03-12] MEDS: MS CONTIN ER PO SCH ×2 (10:00→22:35)
[2019-03-12] MEDS: HABITROL TD SCH (10:00)
[2019-03-12] MEDS: COREG PO SCH ×2 (10:00→22:36)
--- NOTE | 2019-03-12 10:38 | Anesthesia Day of Surgery ---
Anesthesia Day of Surgery - Day of Surgery Patient Examined: Yes Patient H&P Reviewed: Yes Patient is NPO: Yes
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
[2019-03-12] MEDS ORDERED: SUBLIMAZE ONE (10:51)
[2019-03-12] MEDS ORDERED: DIPRIVAN 10 MG/ML IV ONE (10:51)
[2019-03-12] MEDS ORDERED: XYLOCAINE MPF 2% ONE (10:51)
[2019-03-12] MEDS ORDERED: NACL 0.9% 1000 ML 1,000 ML IV SCH (11:00)
[2019-03-12] MEDS ORDERED: ANCEF/STERILE WATER 2 GM/20 ML IV NR (11:15)
[2019-03-12] MEDS ORDERED: ANCEF/STERILE WATER 2 GM/20 ML 2 GM/20 ML SYRINGE IV ONE (11:25)
[2019-03-12] MEDS ORDERED: PHENYLEPHRINE/NS Syringe 1,000 MCG/10 ML IV ONE (12:05)
[2019-03-12] MEDS ORDERED: ZOFRAN ONE (12:09)
[2019-03-12] MEDS ORDERED: NACL 0.9% IR ONE (12:12)
[2019-03-12] MEDS ORDERED: DILAUDID ONE (13:44)
[2019-03-12] MEDS: DILAUDID IV PRN ×4 (13:45→20:24)
--- NOTE | 2019-03-12 13:55 | Procedure Note ---
Date of procedure: 03/12/19 Pre-op diagnosis: 1) Right foot gangrene 2) Breakdown of left AKA stump Post-op diagnosis: same Procedure: 1) Right TMA 2) Debridement of left AKA stump of necrotic SQ and muscle Description of procedure: Pt was placed supine on the OR table. General ane sthesia by LMA was administered. The pt's right foot and left AKA stump were separately prepped and draped. The right TMA was initiated first. The soft tissue across the distal dorsal right foot was transected with the cutting current of the Bovie. Hemostasis of some bleeding was controlled with the Bovie. The distal metatarsal bones were exposed and the periosteum elevated with a periosteal elevator. The distal metatarsal shafts were then amputated with a bone saw and the plantar soft tissue transected with curved Pérez scissors. The 5th metatarsal was amputated as proximally as possible because of the lack of a full thickness plantar flap laterally. Exposed tendons were maximally retracted and transected. The rest of the necrotic skin and SQ tissue on the plantar lateral mid foot was excised with scissors. There was no evidence of active infection. Wound was irrigated with warm saline. The wound was loosely closed with several interrupted vertical mattress sutures of 3-0 Nylon. The wound was dressed with a dilute Betadine Kerlix roll over the open SQ tissue laterally followed by dry 4 X 4's, a Kerlix wrap and Coban. Attention was then directed to the left AKA stump. Necrotic skin, SQ tissue and muscle were surgically excisionally debrided with Pérez scissors. Some purulent drainage was encountered during the debridement and this was collected for C&S. Hemostasis was obtained with the Bovie. Wound was irrigated with warm saline. Wound was dressed with a dilute Betadine Kerlix roll followed by dry 4 X 4's, a Kerlix roll and Coban. Final wound measurements were 3 X 7 X 1.5 cm. Pt tolerated both procedures well. He was taken to PACU in stable condition. Anesthesia: other (LMA) Surgeon: YOLY HANLEY Estimated blood loss: 50-100ml Pathology: list (Distal right foot and toes; also, C&S of purulent drainage from the left AKA stump) Specimen disposition: to lab Condition: stable Disposition: PACU
[2019-03-12] MEDS ORDERED: VERSED IV ONE (13:56)
[2019-03-12] MEDS ORDERED: VERSED ONE (13:58)
[2019-03-12] MEDS: XANAX PO SCH ×2 (15:45→22:36)
[2019-03-12] MEDS: SODIUM CHLORIDE FLUSH SYRINGE 10 ML IV SCH ×2 (15:46→22:40)
[2019-03-12] MEDS: PLAVIX PO SCH (15:46)
[2019-03-12] MEDS: celeXA PO SCH (15:47)
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
[2019-03-12] MEDS: ATIVAN IV PRN (17:32)
--- NOTE | 2019-03-12 17:47 | Post Anesthesia Evaluation ---
- Post Anesthesia Evaluation Patient Participated: Yes Airway Patent: Yes Stable Respiratory Function: Yes Nausea/Vomiting: No Temp > 96.8F: Yes Pain Manageable: Yes Adequeate Hydration: Yes Anesthesia Complications: No Block Receding Appropriately: Not Applicable Patient on Ventilator: No
[2019-03-12] MEDS: LANTUS SUB-Q SCH (22:39)
[2019-03-13] MEDS: PERCOCET 5/325 PO PRN (00:23)
[2019-03-13] MEDS: ATIVAN IV PRN (00:50)
[2019-03-13] MEDS: MORPHINE IV PRN ×4 (05:26→22:06)
[2019-03-13] MEDS: BROVANA NEBU IH SCH ×2 (08:01→19:32)
[2019-03-13] MEDS: PULMICORT IH SCH ×2 (08:02→19:32)
[2019-03-13] MEDS: HumaLOG SUB-Q SCH ×4 (12:18→22:06)
[2019-03-13] MEDS: MS CONTIN ER PO SCH ×2 (12:19→22:19)
[2019-03-13] MEDS: COREG PO SCH ×2 (12:19→22:30)
[2019-03-13] MEDS: PLAVIX PO SCH (12:19)
[2019-03-13] MEDS: XANAX PO SCH ×2 (12:19→22:11)
[2019-03-13] MEDS: celeXA PO SCH (12:19)
[2019-03-13] MEDS: HABITROL TD SCH (12:19)
[2019-03-13] MEDS: SODIUM CHLORIDE FLUSH SYRINGE 10 ML IV SCH ×2 (12:20→22:11)
[2019-03-13] MEDS: DUONEB *Not for PRN Use IH SCH ×3 (15:12→19:32)
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
[2019-03-13] MEDS: LANTUS SUB-Q SCH (22:03)
[2019-03-13] MEDS: HEPARIN/ 0.45% NACL-25,000 UNIT/500 ML 25,000 UNIT/500 ML BAG IV SCH (22:28)
[2019-03-14] MEDS ORDERED: HEPARIN 10,000 UNITS/10 ML IV ONE (02:50)
[2019-03-14] MEDS: PERCOCET 5/325 PO PRN ×3 (03:38→16:56)
[2019-03-14 07:51] LABS: Hematocrit 35.2 % (35.5-45.6); Hemoglobin 11.9 gm/dl (11.8-15.2); Mean Corpuscular HGB Conc 34 % (32-34); Mean Corpuscular Volume 86 fl (84-94); Platelet Count 505 K/mm3 (140-440)
[2019-03-14 08:06] LABS: BUN/Creatinine Ratio 15; Blood Urea Nitrogen 6 mg/dL (9-20); Calcium 9.4 mg/dL (8.4-10.2); Hemolysis Index 0
[2019-03-14] MEDS: HumaLOG SUB-Q SCH ×4 (08:38→22:11)
--- NOTE | 2019-03-14 09:58 | Progress Note ---
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 He should f[facility]u in [facility]. Subjective Date of service: 03/14/19 Patient Reports: Positive: no new complaints Objective Vital Signs - 12hr 03/13/19 03/13/19 03/14/19 22:30 23:08 05:40 Temperature 100.6 F H 98.1 F Pulse Rate 85 83 67 Respiratory 20 20 Rate Blood Pressure 134/78 109/50 96/62 O2 Sat by Pulse 93 92 Oximetry - Musculoskeletal other (Wounds are clean.) - Labs 03/14/19 07:32 03/14/19 07:32 Diabetes panel 03/14/19 Range/Units 07:32 Sodium 141 (137-145) mmol/L Potassium 4.2 (3.6-5.0) mmol/L Chloride 101.9 (98-107) mmol/L Carbon Dioxide 31 H (22-30) mmol/L BUN 6 L (9-20) mg/dL Creatinine 0.4 L (0.8-1.5) mg/dL Glucose 155 H (75-100) mg/dL Calcium 9.4 (8.4-10.2) mg/dL Calcium panel 03/14/19 Range/Units 07:32 Calcium 9.4 (8.4-10.2) mg/dL Pituitary panel 03/14/19 Range/Units 07:32 Sodium 141 (137-145) mmol/L Potassium 4.2 (3.6-5.0) mmol/L Chloride 101.9 (98-107) mmol/L Carbon Dioxide 31 H (22-30) mmol/L BUN 6 L (9-20) mg/dL Creatinine 0.4 L (0.8-1.5) mg/dL Glucose 155 H (75-100) mg/dL Calcium 9.4 (8.4-10.2) mg/dL Adrenal panel 03/14/19 Range/Units 07:32 Sodium 141 (137-145) mmol/L Potassium 4.2 (3.6-5.0) mmol/L Chloride 101.9 (98-107) mmol/L Carbon Dioxide 31 H (22-30) mmol/L BUN 6 L (9-20) mg/dL Creatinine 0.4 L (0.8-1.5) mg/dL Glucose 155 H (75-100) mg/dL Calcium 9.4 (8.4-10.2) mg/dL
[2019-03-14 10:08] LABS: Basophils % (Manual) 0 % (0.0-1.8); Eosinophils % (Manual) 0 % (0.0-4.3); Total Cells Counted 100
[2019-03-14 10:09] LABS: Platelet Estimate Consistent w Auto; Poikilocytosis Few
[2019-03-14] MEDS: COREG PO SCH ×2 (10:15→21:40)
[2019-03-14] MEDS: HABITROL TD SCH (10:15)
[2019-03-14] MEDS: MS CONTIN ER PO SCH ×2 (10:15→21:40)
[2019-03-14] MEDS: XANAX PO SCH ×2 (10:15→22:49)
[2019-03-14] MEDS: celeXA PO SCH (10:15)
[2019-03-14] MEDS: PLAVIX PO SCH (10:15)
[2019-03-14] MEDS: SODIUM CHLORIDE FLUSH SYRINGE 10 ML IV SCH ×2 (10:16→21:41)
[2019-03-14] MEDS: HEPARIN/ 0.45% NACL-25,000 UNIT/500 ML 25,000 UNIT/500 ML BAG IV SCH ×2 (11:52→22:12)
[2019-03-14] MEDS: BROVANA NEBU IH SCH ×2 (12:39→19:37)
[2019-03-14] MEDS: PULMICORT IH SCH ×2 (12:40→19:37)
[2019-03-14] MEDS: DUONEB *Not for PRN Use IH SCH ×3 (12:40→19:37)
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
[2019-03-14] MEDS: MORPHINE IV PRN ×2 (14:00→18:59)
--- NOTE | 2019-03-14 16:44 | Progress Note ---
Subjective Date of service: 03/14/19 Principal diagnosis: PVD with arterial embolism Interval history: went over the EEG which showed no seizures he was extremely anxious during the tracing suspect underlying emotional imbalance that is not epileptic likely consequence of polydrug abuse Objective - Vital Sign Vital Signs - 12hr 03/14/19 03/14/19 03/14/19 05:40 11:28 12:32 Temperature 98.1 F 97.1 F L Pulse Rate 67 79 Respiratory 20 18 Rate Blood Pressure 96/62 99/62 O2 Sat by Pulse 92 93 95 Oximetry - Laboratory Findings CBC and BMP: 03/14/19 07:32 03/14/19 07:32 Abnormal Lab Findings: Abnormal Labs 03/02/19 03/02/19 03/02/19 04:23 04:23 17:10 WBC 11.9 H RBC Hgb 11.4 L Hct 33.0 L MCHC 35 H RDW Plt Count [place] % (Auto) 9.8 H [place] # 1.2 H Monocytes % (Manual) Seg Neutrophils # 8.3 H Monocytes # (Manual) Heparin Anti-Xa Level Sodium 136 L Potassium 3.0 L Chloride 96.7 L Carbon Dioxide 32 H BUN Creatinine 0.5 L Glucose 256 H POC Glucose 394 H Calcium Total Protein Albumin 03/02/19 03/03/19 03/03/19 21:37 07:45 16:43 WBC RBC Hgb Hct MCHC RDW Plt Count [place] % (Auto) [place] # Monocytes % (Manual) Seg Neutrophils # Monocytes # (Manual) Heparin Anti-Xa Level Sodium Potassium Chloride Carbon Dioxide BUN Creatinine Glucose POC Glucose 134 H 154 H 257 H Calcium Total Protein Albumin 03/03/19 03/03/19 03/04/19 20:50 21:44 05:19 WBC RBC Hgb Hct MCHC RDW Plt Count [place] % (Auto) [place] # Monocytes % (Manual) Seg Neutrophils # Monocytes # (Manual) Heparin Anti-Xa Level < 0.10 L 0.10 L Sodium Potassium Chloride Carbon Dioxide BUN Creatinine Glucose POC Glucose 186 H Calcium Total Protein Albumin 03/04/19 03/04/19 03/04/19 07:38 08:06 12:43 WBC RBC Hgb Hct MCHC RDW Plt Count [place] % (Auto) [place] # Monocytes % (Manual) Seg Neutrophils # Monocytes # (Manual) Heparin Anti-Xa Level Sodium 135 L Potassium Chloride 96.6 L Carbon Dioxide BUN 8 L Creatinine 0.3 L Glucose 102 H POC Glucose 164 H 118 H Calcium 8.1 L Total Protein Albumin 03/04/19 03/04/19 03/04/19 15:59 20:51 21:23 WBC RBC Hgb Hct MCHC RDW Plt Count [place] % (Auto) [place] # Monocytes % (Manual) Seg Neutrophils # Monocytes # (Manual) Heparin Anti-Xa Level < 0.10 L Sodium Potassium Chloride Carbon Dioxide BUN Creatinine Glucose POC Glucose 126 H 281 H Calcium Total Protein Albumin 03/05/19 03/05/19 03/05/19 05:05 05:05 05:05 WBC RBC Hgb 11.6 L Hct 33.6 L MCHC 35 H RDW Plt Count [place] % (Auto) [place] # Monocytes % (Manual) Seg Neutrophils # Monocytes # (Manual) Heparin Anti-Xa Level 0.10 L Sodium Potassium Chloride Carbon Dioxide BUN 8 L Creatinine 0.4 L Glucose 121 H POC Glucose Calcium 8.1 L Total Protein 6.2 L Albumin 2.9 L 03/05/19 03/05/19 03/05/19 08:18 12:16 16:33 WBC RBC Hgb Hct MCHC RDW Plt Count [place] % (Auto) [place] # Monocytes % (Manual) Seg Neutrophils # Monocytes # (Manual) Heparin Anti-Xa Level Sodium Potassium Chloride Carbon Dioxide BUN Creatinine Glucose POC Glucose 392 H 133 H 156 H Calcium Total Protein Albumin 03/05/19 03/05/19 03/06/19 16:45 21:52 01:06 WBC RBC Hgb Hct MCHC RDW Plt Count [place] % (Auto) [place] # Monocytes % (Manual) Seg Neutrophils # Monocytes # (Manual) Heparin Anti-Xa Level 0.18 L < 0.10 L Sodium Potassium Chloride Carbon Dioxide BUN Creatinine Glucose POC Glucose 177 H Calcium Total Protein Albumin 03/06/19 03/06/19 03/06/19 08:23 11:19 16:40 WBC RBC Hgb Hct MCHC RDW Plt Count [place] % (Auto) [place] # Monocytes % (Manual) Seg Neutrophils # Monocytes # (Manual) Heparin Anti-Xa Level Sodium Potassium Chloride Carbon Dioxide BUN Creatinine Glucose POC Glucose 107 H 229 H 172 H Calcium Total Protein Albumin 03/06/19 03/07/19 03/07/19 22:02 07:36 07:47 WBC RBC Hgb 11.4 L Hct 33.9 L MCHC RDW Plt Count [place] % (Auto) [place] # Monocytes % (Manual) Seg Neutrophils # Monocytes # (Manual) Heparin Anti-Xa Level Sodium Potassium Chloride Carbon Dioxide BUN Creatinine Glucose POC Glucose 119 H 121 H Calcium Total Protein Albumin 03/07/19 03/07/19 03/07/19 07:47 12:09 16:43 WBC RBC Hgb Hct MCHC RDW Plt Count [place] % (Auto) [place] # Monocytes % (Manual) Seg Neutrophils # Monocytes # (Manual) Heparin Anti-Xa Level 0.23 L Sodium Potassium Chloride Carbon Dioxide BUN Creatinine Glucose POC Glucose 186 H 194 H Calcium Total Protein Albumin 03/07/19 03/08/19 03/08/19 21:42 08:02 11:35 WBC RBC Hgb Hct MCHC RDW Plt Count [place] % (Auto) [place] # Monocytes % (Manual) Seg Neutrophils # Monocytes # (Manual) Heparin Anti-Xa Level Sodium Potassium Chloride Carbon Dioxide BUN Creatinine Glucose POC Glucose 174 H 133 H 130 H Calcium Total Protein Albumin 03/08/19 03/09/19 03/09/19 21:40 07:30 07:40 WBC RBC Hgb 11.3 L Hct 32.8 L MCHC RDW Plt Count [place] % (Auto) [place] # Monocytes % (Manual) Seg Neutrophils # Monocytes # (Manual) Heparin Anti-Xa Level Sodium Potassium Chloride Carbon Dioxide BUN Creatinine Glucose POC Glucose 194 H 149 H Calcium Total Protein Albumin 03/09/19 03/09/19 03/09/19 11:42 16:18 21:20 WBC RBC Hgb Hct MCHC RDW Plt Count [place] % (Auto) [place] # Monocytes % (Manual) Seg Neutrophils # Monocytes # (Manual) Heparin Anti-Xa Level Sodium Potassium Chloride Carbon Dioxide BUN Creatinine Glucose POC Glucose 143 H 190 H 209 H Calcium Total Protein Albumin 03/10/19 03/10/19 03/10/19 07:32 07:32 11:28 WBC 12.9 H RBC Hgb 11.3 L Hct 33.7 L MCHC RDW Plt Count 457 H [place] % (Auto) [place] # Monocytes % (Manual) Seg Neutrophils # Monocytes # (Manual) Heparin Anti-Xa Level Sodium 136 L Potassium Chloride Carbon Dioxide BUN Creatinine 0.5 L Glucose POC Glucose 240 H Calcium Total Protein Albumin 03/10/19 03/10/19 03/11/19 18:08 22:48 04:57 WBC RBC Hgb 11.0 L Hct 32.8 L MCHC RDW Plt Count 457 H [place] % (Auto) [place] # Monocytes % (Manual) Seg Neutrophils # Monocytes # (Manual) Heparin Anti-Xa Level Sodium Potassium Chloride Carbon Dioxide BUN Creatinine Glucose POC Glucose 158 H 148 H Calcium Total Protein Albumin 03/11/19 03/11/19 03/11/19 04:57 08:20 13:59 WBC RBC Hgb Hct MCHC RDW Plt Count [place] % (Auto) [place] # Monocytes % (Manual) Seg Neutrophils # Monocytes # (Manual) Heparin Anti-Xa Level Sodium 136 L Potassium Chloride Carbon Dioxide BUN 7 L Creatinine 0.5 L Glucose 126 H POC Glucose 132 H 115 H Calcium Total Protein Albumin 03/11/19 03/11/19 03/11/19 18:10 18:33 21:54 WBC RBC Hgb Hct MCHC RDW Plt Count [place] % (Auto) [place] # Monocytes % (Manual) Seg Neutrophils # Monocytes # (Manual) Heparin Anti-Xa Level 0.21 L Sodium Potassium Chloride Carbon Dioxide BUN Creatinine Glucose POC Glucose 233 H 171 H Calcium Total Protein Albumin 03/12/19 03/12/19 03/12/19 06:50 06:50 10:38 WBC RBC 3.63 L Hgb 10.9 L Hct 31.5 L MCHC 35 H RDW 15.3 H Plt Count [place] % (Auto) [place] # Monocytes % (Manual) Seg Neutrophils # Monocytes # (Manual) Heparin Anti-Xa Level Sodium 135 L Potassium Chloride Carbon Dioxide BUN 8 L Creatinine 0.5 L Glucose 122 H POC Glucose 107 H Calcium Total Protein Albumin 03/12/19 03/13/19 03/13/19 21:46 08:07 09:22 WBC RBC Hgb Hct MCHC RDW Plt Count [place] % (Auto) [place] # Monocytes % (Manual) Seg Neutrophils # Monocytes # (Manual) Heparin Anti-Xa Level < 0.10 L Sodium Potassium Chloride Carbon Dioxide BUN Creatinine Glucose POC Glucose 130 H 137 H Calcium Total Protein Albumin 03/13/19 03/13/19 03/13/19 11:26 17:16 19:00 WBC RBC Hgb Hct MCHC RDW Plt Count [place] % (Auto) [place] # Monocytes % (Manual) Seg Neutrophils # Monocytes # (Manual) Heparin Anti-Xa Level 0.22 L Sodium Potassium Chloride Carbon Dioxide BUN Creatinine Glucose POC Glucose 238 H 164 H Calcium Total Protein Albumin 03/13/19 03/14/19 03/14/19 21:26 01:55 07:32 WBC 11.1 H RBC Hgb Hct 35.2 L MCHC RDW Plt Count 505 H [place] % (Auto) [place] # Monocytes % (Manual) 12.0 H Seg Neutrophils # Monocytes # (Manual) 1.3 H Heparin Anti-Xa Level < 0.10 L Sodium Potassium Chloride Carbon Dioxide BUN Creatinine Glucose POC Glucose 242 H Calcium Total Protein Albumin 03/14/19 03/14/19 03/14/19 07:32 08:05 11:18 WBC RBC Hgb Hct MCHC RDW Plt Count [place] % (Auto) [place] # Monocytes % (Manual) Seg Neutrophils # Monocytes # (Manual) Heparin Anti-Xa Level Sodium Potassium Chloride Carbon Dioxide 31 H BUN 6 L Creatinine 0.4 L Glucose 155 H POC Glucose 249 H 234 H Calcium Total Protein Albumin 03/14/19 16:36 WBC RBC Hgb Hct MCHC RDW Plt Count [place] % (Auto) [place] # Monocytes % (Manual) Seg Neutrophils # Monocytes # (Manual) Heparin Anti-Xa Level Sodium Potassium Chloride Carbon Dioxide BUN Creatinine Glucose POC Glucose 239 H Calcium Total Protein Albumin
[2019-03-14] MEDS: LANTUS SUB-Q SCH (22:11)
[2019-03-15] MEDS: PERCOCET 5/325 PO PRN ×3 (01:57→17:34)
[2019-03-15] MEDS: HumaLOG SUB-Q SCH ×4 (07:30→22:38)
[2019-03-15] MEDS: MORPHINE IV PRN (08:12)
[2019-03-15] MEDS: PULMICORT IH SCH ×2 (08:45→20:46)
[2019-03-15] MEDS: BROVANA NEBU IH SCH ×2 (08:45→20:47)
[2019-03-15] MEDS: DUONEB *Not for PRN Use IH SCH ×3 (08:46→20:47)
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
--- NOTE | 2019-03-15 10:27 | Progress Note ---
Subjective Date of service: 03/15/19 Principal diagnosis: PVD with arterial embolism Interval history: did not note epileptic activity on the EEG suspect emotional matters are cause of the nervousness Objective - Vital Sign Vital Signs - 12hr 03/14/19 03/15/19 23:31 06:34 Temperature 99.2 F 98.1 F Pulse Rate 94 H 75 Respiratory 18 18 Rate Blood Pressure 111/63 110/64 O2 Sat by Pulse 95 94 Oximetry - Laboratory Findings CBC and BMP: 03/14/19 07:32 03/14/19 07:32 Abnormal Lab Findings: Abnormal Labs 03/02/19 03/02/19 03/02/19 04:23 04:23 17:10 WBC 11.9 H RBC Hgb 11.4 L Hct 33.0 L MCHC 35 H RDW Plt Count [place] % (Auto) 9.8 H [place] # 1.2 H Monocytes % (Manual) Seg Neutrophils # 8.3 H Monocytes # (Manual) Heparin Anti-Xa Level Sodium 136 L Potassium 3.0 L Chloride 96.7 L Carbon Dioxide 32 H BUN Creatinine 0.5 L Glucose 256 H POC Glucose 394 H Calcium Total Protein Albumin 03/02/19 03/03/19 03/03/19 21:37 07:45 16:43 WBC RBC Hgb Hct MCHC RDW Plt Count [place] % (Auto) [place] # Monocytes % (Manual) Seg Neutrophils # Monocytes # (Manual) Heparin Anti-Xa Level Sodium Potassium Chloride Carbon Dioxide BUN Creatinine Glucose POC Glucose 134 H 154 H 257 H Calcium Total Protein Albumin 03/03/19 03/03/19 03/04/19 20:50 21:44 05:19 WBC RBC Hgb Hct MCHC RDW Plt Count [place] % (Auto) [place] # Monocytes % (Manual) Seg Neutrophils # Monocytes # (Manual) Heparin Anti-Xa Level < 0.10 L 0.10 L Sodium Potassium Chloride Carbon Dioxide BUN Creatinine Glucose POC Glucose 186 H Calcium Total Protein Albumin 03/04/19 03/04/19 03/04/19 07:38 08:06 12:43 WBC RBC Hgb Hct MCHC RDW Plt Count [place] % (Auto) [place] # Monocytes % (Manual) Seg Neutrophils # Monocytes # (Manual) Heparin Anti-Xa Level Sodium 135 L Potassium Chloride 96.6 L Carbon Dioxide BUN 8 L Creatinine 0.3 L Glucose 102 H POC Glucose 164 H 118 H Calcium 8.1 L Total Protein Albumin 03/04/19 03/04/19 03/04/19 15:59 20:51 21:23 WBC RBC Hgb Hct MCHC RDW Plt Count [place] % (Auto) [place] # Monocytes % (Manual) Seg Neutrophils # Monocytes # (Manual) Heparin Anti-Xa Level < 0.10 L Sodium Potassium Chloride Carbon Dioxide BUN Creatinine Glucose POC Glucose 126 H 281 H Calcium Total Protein Albumin 03/05/19 03/05/19 03/05/19 05:05 05:05 05:05 WBC RBC Hgb 11.6 L Hct 33.6 L MCHC 35 H RDW Plt Count [place] % (Auto) [place] # Monocytes % (Manual) Seg Neutrophils # Monocytes # (Manual) Heparin Anti-Xa Level 0.10 L Sodium Potassium Chloride Carbon Dioxide BUN 8 L Creatinine 0.4 L Glucose 121 H POC Glucose Calcium 8.1 L Total Protein 6.2 L Albumin 2.9 L 03/05/19 03/05/19 03/05/19 08:18 12:16 16:33 WBC RBC Hgb Hct MCHC RDW Plt Count [place] % (Auto) [place] # Monocytes % (Manual) Seg Neutrophils # Monocytes # (Manual) Heparin Anti-Xa Level Sodium Potassium Chloride Carbon Dioxide BUN Creatinine Glucose POC Glucose 392 H 133 H 156 H Calcium Total Protein Albumin 03/05/19 03/05/19 03/06/19 16:45 21:52 01:06 WBC RBC Hgb Hct MCHC RDW Plt Count [place] % (Auto) [place] # Monocytes % (Manual) Seg Neutrophils # Monocytes # (Manual) Heparin Anti-Xa Level 0.18 L < 0.10 L Sodium Potassium Chloride Carbon Dioxide BUN Creatinine Glucose POC Glucose 177 H Calcium Total Protein Albumin 03/06/19 03/06/19 03/06/19 08:23 11:19 16:40 WBC RBC Hgb Hct MCHC RDW Plt Count [place] % (Auto) [place] # Monocytes % (Manual) Seg Neutrophils # Monocytes # (Manual) Heparin Anti-Xa Level Sodium Potassium Chloride Carbon Dioxide BUN Creatinine Glucose POC Glucose 107 H 229 H 172 H Calcium Total Protein Albumin 03/06/19 03/07/19 03/07/19 22:02 07:36 07:47 WBC RBC Hgb 11.4 L Hct 33.9 L MCHC RDW Plt Count [place] % (Auto) [place] # Monocytes % (Manual) Seg Neutrophils # Monocytes # (Manual) Heparin Anti-Xa Level Sodium Potassium Chloride Carbon Dioxide BUN Creatinine Glucose POC Glucose 119 H 121 H Calcium Total Protein Albumin 03/07/19 03/07/19 03/07/19 07:47 12:09 16:43 WBC RBC Hgb Hct MCHC RDW Plt Count [place] % (Auto) [place] # Monocytes % (Manual) Seg Neutrophils # Monocytes # (Manual) Heparin Anti-Xa Level 0.23 L Sodium Potassium Chloride Carbon Dioxide BUN Creatinine Glucose POC Glucose 186 H 194 H Calcium Total Protein Albumin 03/07/19 03/08/19 03/08/19 21:42 08:02 11:35 WBC RBC Hgb Hct MCHC RDW Plt Count [place] % (Auto) [place] # Monocytes % (Manual) Seg Neutrophils # Monocytes # (Manual) Heparin Anti-Xa Level Sodium Potassium Chloride Carbon Dioxide BUN Creatinine Glucose POC Glucose 174 H 133 H 130 H Calcium Total Protein Albumin 03/08/19 03/09/19 03/09/19 21:40 07:30 07:40 WBC RBC Hgb 11.3 L Hct 32.8 L MCHC RDW Plt Count [place] % (Auto) [place] # Monocytes % (Manual) Seg Neutrophils # Monocytes # (Manual) Heparin Anti-Xa Level Sodium Potassium Chloride Carbon Dioxide BUN Creatinine Glucose POC Glucose 194 H 149 H Calcium Total Protein Albumin 03/09/19 03/09/19 03/09/19 11:42 16:18 21:20 WBC RBC Hgb Hct MCHC RDW Plt Count [place] % (Auto) [place] # Monocytes % (Manual) Seg Neutrophils # Monocytes # (Manual) Heparin Anti-Xa Level Sodium Potassium Chloride Carbon Dioxide BUN Creatinine Glucose POC Glucose 143 H 190 H 209 H Calcium Total Protein Albumin 03/10/19 03/10/19 03/10/19 07:32 07:32 11:28 WBC 12.9 H RBC Hgb 11.3 L Hct 33.7 L MCHC RDW Plt Count 457 H [place] % (Auto) [place] # Monocytes % (Manual) Seg Neutrophils # Monocytes # (Manual) Heparin Anti-Xa Level Sodium 136 L Potassium Chloride Carbon Dioxide BUN Creatinine 0.5 L Glucose POC Glucose 240 H Calcium Total Protein Albumin 03/10/19 03/10/19 03/11/19 18:08 22:48 04:57 WBC RBC Hgb 11.0 L Hct 32.8 L MCHC RDW Plt Count 457 H [place] % (Auto) [place] # Monocytes % (Manual) Seg Neutrophils # Monocytes # (Manual) Heparin Anti-Xa Level Sodium Potassium Chloride Carbon Dioxide BUN Creatinine Glucose POC Glucose 158 H 148 H Calcium Total Protein Albumin 03/11/19 03/11/19 03/11/19 04:57 08:20 13:59 WBC RBC Hgb Hct MCHC RDW Plt Count [place] % (Auto) [place] # Monocytes % (Manual) Seg Neutrophils # Monocytes # (Manual) Heparin Anti-Xa Level Sodium 136 L Potassium Chloride Carbon Dioxide BUN 7 L Creatinine 0.5 L Glucose 126 H POC Glucose 132 H 115 H Calcium Total Protein Albumin 03/11/19 03/11/19 03/11/19 18:10 18:33 21:54 WBC RBC Hgb Hct MCHC RDW Plt Count [place] % (Auto) [place] # Monocytes % (Manual) Seg Neutrophils # Monocytes # (Manual) Heparin Anti-Xa Level 0.21 L Sodium Potassium Chloride Carbon Dioxide BUN Creatinine Glucose POC Glucose 233 H 171 H Calcium Total Protein Albumin 03/12/19 03/12/19 03/12/19 06:50 06:50 10:38 WBC RBC 3.63 L Hgb 10.9 L Hct 31.5 L MCHC 35 H RDW 15.3 H Plt Count [place] % (Auto) [place] # Monocytes % (Manual) Seg Neutrophils # Monocytes # (Manual) Heparin Anti-Xa Level Sodium 135 L Potassium Chloride Carbon Dioxide BUN 8 L Creatinine 0.5 L Glucose 122 H POC Glucose 107 H Calcium Total Protein Albumin 03/12/19 03/13/19 03/13/19 21:46 08:07 09:22 WBC RBC Hgb Hct MCHC RDW Plt Count [place] % (Auto) [place] # Monocytes % (Manual) Seg Neutrophils # Monocytes # (Manual) Heparin Anti-Xa Level < 0.10 L Sodium Potassium Chloride Carbon Dioxide BUN Creatinine Glucose POC Glucose 130 H 137 H Calcium Total Protein Albumin 03/13/19 03/13/19 03/13/19 11:26 17:16 19:00 WBC RBC Hgb Hct MCHC RDW Plt Count [place] % (Auto) [place] # Monocytes % (Manual) Seg Neutrophils # Monocytes # (Manual) Heparin Anti-Xa Level 0.22 L Sodium Potassium Chloride Carbon Dioxide BUN Creatinine Glucose POC Glucose 238 H 164 H Calcium Total Protein Albumin 03/13/19 03/14/19 03/14/19 21:26 01:55 07:32 WBC 11.1 H RBC Hgb Hct 35.2 L MCHC RDW Plt Count 505 H [place] % (Auto) [place] # Monocytes % (Manual) 12.0 H Seg Neutrophils # Monocytes # (Manual) 1.3 H Heparin Anti-Xa Level < 0.10 L Sodium Potassium Chloride Carbon Dioxide BUN Creatinine Glucose POC Glucose 242 H Calcium Total Protein Albumin 03/14/19 03/14/19 03/14/19 07:32 08:05 11:18 WBC RBC Hgb Hct MCHC RDW Plt Count [place] % (Auto) [place] # Monocytes % (Manual) Seg Neutrophils # Monocytes # (Manual) Heparin Anti-Xa Level Sodium Potassium Chloride Carbon Dioxide 31 H BUN 6 L Creatinine 0.4 L Glucose 155 H POC Glucose 249 H 234 H Calcium Total Protein Albumin 03/14/19 03/14/19 03/15/19 16:36 21:41 08:00 WBC RBC Hgb Hct MCHC RDW Plt Count [place] % (Auto) [place] # Monocytes % (Manual) Seg Neutrophils # Monocytes # (Manual) Heparin Anti-Xa Level Sodium Potassium Chloride Carbon Dioxide BUN Creatinine Glucose POC Glucose 239 H 275 H 158 H Calcium Total Protein Albumin
[2019-03-15] MEDS: HEPARIN/ 0.45% NACL-25,000 UNIT/500 ML 25,000 UNIT/500 ML BAG IV SCH (10:42)
[2019-03-15] MEDS: HABITROL TD SCH (10:49)
[2019-03-15] MEDS: PLAVIX PO SCH (10:51)
[2019-03-15] MEDS: celeXA PO SCH (10:51)
[2019-03-15] MEDS: MS CONTIN ER PO SCH ×2 (10:51→22:42)
[2019-03-15] MEDS: SODIUM CHLORIDE FLUSH SYRINGE 10 ML IV SCH ×2 (10:52→22:43)
[2019-03-15] MEDS: COREG PO SCH ×2 (11:05→22:38)
[2019-03-15] MEDS: XANAX PO SCH ×2 (13:42→22:43)
[2019-03-15] MEDS: LANTUS SUB-Q SCH (22:44)
[2019-03-16] MEDS: HEPARIN/ 0.45% NACL-25,000 UNIT/500 ML 25,000 UNIT/500 ML BAG IV SCH ×2 (00:49→13:25)
[2019-03-16] MEDS: DUONEB *Not for PRN Use IH SCH ×3 (07:47→20:28)
[2019-03-16] MEDS: BROVANA NEBU IH SCH ×2 (07:47→20:28)
[2019-03-16] MEDS: PULMICORT IH SCH ×2 (07:47→20:28)
--- NOTE | 2019-03-16 08:54 | Progress Note ---
Subjective Date of service: 03/16/19 Principal diagnosis: PVD with arterial embolism Interval history: patient stable and seizure control is excellent no other issues being evoluted Objective - Vital Sign Vital Signs - 12hr 03/15/19 03/15/19 03/16/19 22:38 23:20 05:46 Temperature 98.1 F 98.0 F Pulse Rate 83 89 Respiratory 17 18 Rate Blood Pressure 109/55 117/64 108/53 O2 Sat by Pulse 93 91 Oximetry - Laboratory Findings CBC and BMP: 03/14/19 07:32 03/14/19 07:32 Abnormal Lab Findings: Abnormal Labs 03/02/19 03/02/19 03/02/19 04:23 04:23 17:10 WBC 11.9 H RBC Hgb 11.4 L Hct 33.0 L MCHC 35 H RDW Plt Count [place] % (Auto) 9.8 H [place] # 1.2 H Monocytes % (Manual) Seg Neutrophils # 8.3 H Monocytes # (Manual) Heparin Anti-Xa Level Sodium 136 L Potassium 3.0 L Chloride 96.7 L Carbon Dioxide 32 H BUN Creatinine 0.5 L Glucose 256 H POC Glucose 394 H Calcium Total Protein Albumin 03/02/19 03/03/19 03/03/19 21:37 07:45 16:43 WBC RBC Hgb Hct MCHC RDW Plt Count [place] % (Auto) [place] # Monocytes % (Manual) Seg Neutrophils # Monocytes # (Manual) Heparin Anti-Xa Level Sodium Potassium Chloride Carbon Dioxide BUN Creatinine Glucose POC Glucose 134 H 154 H 257 H Calcium Total Protein Albumin 03/03/19 03/03/19 03/04/19 20:50 21:44 05:19 WBC RBC Hgb Hct MCHC RDW Plt Count [place] % (Auto) [place] # Monocytes % (Manual) Seg Neutrophils # Monocytes # (Manual) Heparin Anti-Xa Level < 0.10 L 0.10 L Sodium Potassium Chloride Carbon Dioxide BUN Creatinine Glucose POC Glucose 186 H Calcium Total Protein Albumin 03/04/19 03/04/19 03/04/19 07:38 08:06 12:43 WBC RBC Hgb Hct MCHC RDW Plt Count [place] % (Auto) [place] # Monocytes % (Manual) Seg Neutrophils # Monocytes # (Manual) Heparin Anti-Xa Level Sodium 135 L Potassium Chloride 96.6 L Carbon Dioxide BUN 8 L Creatinine 0.3 L Glucose 102 H POC Glucose 164 H 118 H Calcium 8.1 L Total Protein Albumin 03/04/19 03/04/19 03/04/19 15:59 20:51 21:23 WBC RBC Hgb Hct MCHC RDW Plt Count [place] % (Auto) [place] # Monocytes % (Manual) Seg Neutrophils # Monocytes # (Manual) Heparin Anti-Xa Level < 0.10 L Sodium Potassium Chloride Carbon Dioxide BUN Creatinine Glucose POC Glucose 126 H 281 H Calcium Total Protein Albumin 03/05/19 03/05/19 03/05/19 05:05 05:05 05:05 WBC RBC Hgb 11.6 L Hct 33.6 L MCHC 35 H RDW Plt Count [place] % (Auto) [place] # Monocytes % (Manual) Seg Neutrophils # Monocytes # (Manual) Heparin Anti-Xa Level 0.10 L Sodium Potassium Chloride Carbon Dioxide BUN 8 L Creatinine 0.4 L Glucose 121 H POC Glucose Calcium 8.1 L Total Protein 6.2 L Albumin 2.9 L 03/05/19 03/05/19 03/05/19 08:18 12:16 16:33 WBC RBC Hgb Hct MCHC RDW Plt Count [place] % (Auto) [place] # Monocytes % (Manual) Seg Neutrophils # Monocytes # (Manual) Heparin Anti-Xa Level Sodium Potassium Chloride Carbon Dioxide BUN Creatinine Glucose POC Glucose 392 H 133 H 156 H Calcium Total Protein Albumin 03/05/19 03/05/19 03/06/19 16:45 21:52 01:06 WBC RBC Hgb Hct MCHC RDW Plt Count [place] % (Auto) [place] # Monocytes % (Manual) Seg Neutrophils # Monocytes # (Manual) Heparin Anti-Xa Level 0.18 L < 0.10 L Sodium Potassium Chloride Carbon Dioxide BUN Creatinine Glucose POC Glucose 177 H Calcium Total Protein Albumin 03/06/19 03/06/19 03/06/19 08:23 11:19 16:40 WBC RBC Hgb Hct MCHC RDW Plt Count [place] % (Auto) [place] # Monocytes % (Manual) Seg Neutrophils # Monocytes # (Manual) Heparin Anti-Xa Level Sodium Potassium Chloride Carbon Dioxide BUN Creatinine Glucose POC Glucose 107 H 229 H 172 H Calcium Total Protein Albumin 03/06/19 03/07/19 03/07/19 22:02 07:36 07:47 WBC RBC Hgb 11.4 L Hct 33.9 L MCHC RDW Plt Count [place] % (Auto) [place] # Monocytes % (Manual) Seg Neutrophils # Monocytes # (Manual) Heparin Anti-Xa Level Sodium Potassium Chloride Carbon Dioxide BUN Creatinine Glucose POC Glucose 119 H 121 H Calcium Total Protein Albumin 03/07/19 03/07/19 03/07/19 07:47 12:09 16:43 WBC RBC Hgb Hct MCHC RDW Plt Count [place] % (Auto) [place] # Monocytes % (Manual) Seg Neutrophils # Monocytes # (Manual) Heparin Anti-Xa Level 0.23 L Sodium Potassium Chloride Carbon Dioxide BUN Creatinine Glucose POC Glucose 186 H 194 H Calcium Total Protein Albumin 03/07/19 03/08/19 03/08/19 21:42 08:02 11:35 WBC RBC Hgb Hct MCHC RDW Plt Count [place] % (Auto) [place] # Monocytes % (Manual) Seg Neutrophils # Monocytes # (Manual) Heparin Anti-Xa Level Sodium Potassium Chloride Carbon Dioxide BUN Creatinine Glucose POC Glucose 174 H 133 H 130 H Calcium Total Protein Albumin 03/08/19 03/09/19 03/09/19 21:40 07:30 07:40 WBC RBC Hgb 11.3 L Hct 32.8 L MCHC RDW Plt Count [place] % (Auto) [place] # Monocytes % (Manual) Seg Neutrophils # Monocytes # (Manual) Heparin Anti-Xa Level Sodium Potassium Chloride Carbon Dioxide BUN Creatinine Glucose POC Glucose 194 H 149 H Calcium Total Protein Albumin 03/09/19 03/09/19 03/09/19 11:42 16:18 21:20 WBC RBC Hgb Hct MCHC RDW Plt Count [place] % (Auto) [place] # Monocytes % (Manual) Seg Neutrophils # Monocytes # (Manual) Heparin Anti-Xa Level Sodium Potassium Chloride Carbon Dioxide BUN Creatinine Glucose POC Glucose 143 H 190 H 209 H Calcium Total Protein Albumin 03/10/19 03/10/19 03/10/19 07:32 07:32 11:28 WBC 12.9 H RBC Hgb 11.3 L Hct 33.7 L MCHC RDW Plt Count 457 H [place] % (Auto) [place] # Monocytes % (Manual) Seg Neutrophils # Monocytes # (Manual) Heparin Anti-Xa Level Sodium 136 L Potassium Chloride Carbon Dioxide BUN Creatinine 0.5 L Glucose POC Glucose 240 H Calcium Total Protein Albumin 03/10/19 03/10/19 03/11/19 18:08 22:48 04:57 WBC RBC Hgb 11.0 L Hct 32.8 L MCHC RDW Plt Count 457 H [place] % (Auto) [place] # Monocytes % (Manual) Seg Neutrophils # Monocytes # (Manual) Heparin Anti-Xa Level Sodium Potassium Chloride Carbon Dioxide BUN Creatinine Glucose POC Glucose 158 H 148 H Calcium Total Protein Albumin 03/11/19 03/11/19 03/11/19 04:57 08:20 13:59 WBC RBC Hgb Hct MCHC RDW Plt Count [place] % (Auto) [place] # Monocytes % (Manual) Seg Neutrophils # Monocytes # (Manual) Heparin Anti-Xa Level Sodium 136 L Potassium Chloride Carbon Dioxide BUN 7 L Creatinine 0.5 L Glucose 126 H POC Glucose 132 H 115 H Calcium Total Protein Albumin 03/11/19 03/11/19 03/11/19 18:10 18:33 21:54 WBC RBC Hgb Hct MCHC RDW Plt Count [place] % (Auto) [place] # Monocytes % (Manual) Seg Neutrophils # Monocytes # (Manual) Heparin Anti-Xa Level 0.21 L Sodium Potassium Chloride Carbon Dioxide BUN Creatinine Glucose POC Glucose 233 H 171 H Calcium Total Protein Albumin 03/12/19 03/12/19 03/12/19 06:50 06:50 10:38 WBC RBC 3.63 L Hgb 10.9 L Hct 31.5 L MCHC 35 H RDW 15.3 H Plt Count [place] % (Auto) [place] # Monocytes % (Manual) Seg Neutrophils # Monocytes # (Manual) Heparin Anti-Xa Level Sodium 135 L Potassium Chloride Carbon Dioxide BUN 8 L Creatinine 0.5 L Glucose 122 H POC Glucose 107 H Calcium Total Protein Albumin 03/12/19 03/13/19 03/13/19 21:46 08:07 09:22 WBC RBC Hgb Hct MCHC RDW Plt Count [place] % (Auto) [place] # Monocytes % (Manual) Seg Neutrophils # Monocytes # (Manual) Heparin Anti-Xa Level < 0.10 L Sodium Potassium Chloride Carbon Dioxide BUN Creatinine Glucose POC Glucose 130 H 137 H Calcium Total Protein Albumin 03/13/19 03/13/19 03/13/19 11:26 17:16 19:00 WBC RBC Hgb Hct MCHC RDW Plt Count [place] % (Auto) [place] # Monocytes % (Manual) Seg Neutrophils # Monocytes # (Manual) Heparin Anti-Xa Level 0.22 L Sodium Potassium Chloride Carbon Dioxide BUN Creatinine Glucose POC Glucose 238 H 164 H Calcium Total Protein Albumin 07/25/19 07/26/19 07/26/19 21:26 01:55 07:32 WBC 11.1 H RBC Hgb Hct 35.2 L MCHC RDW Plt Count 505 H [place] % (Auto) [place] # Monocytes % (Manual) 12.0 H Seg Neutrophils # Monocytes # (Manual) 1.3 H Heparin Anti-Xa Level < 0.10 L Sodium Potassium Chloride Carbon Dioxide BUN Creatinine Glucose POC Glucose 242 H Calcium Total Protein Albumin 03/14/19 03/14/19 03/14/19 07:32 08:05 11:18 WBC RBC Hgb Hct MCHC RDW Plt Count [place] % (Auto) [place] # Monocytes % (Manual) Seg Neutrophils # Monocytes # (Manual) Heparin Anti-Xa Level Sodium Potassium Chloride Carbon Dioxide 31 H BUN 6 L Creatinine 0.4 L Glucose 155 H POC Glucose 249 H 234 H Calcium Total Protein Albumin 03/14/19 03/14/19 03/15/19 16:36 21:41 08:00 WBC RBC Hgb Hct MCHC RDW Plt Count [place] % (Auto) [place] # Monocytes % (Manual) Seg Neutrophils # Monocytes # (Manual) Heparin Anti-Xa Level Sodium Potassium Chloride Carbon Dioxide BUN Creatinine Glucose POC Glucose 239 H 275 H 158 H Calcium Total Protein Albumin 03/15/19 03/15/19 03/15/19 12:07 17:13 21:39 WBC RBC Hgb Hct MCHC RDW Plt Count [place] % (Auto) [place] # Monocytes % (Manual) Seg Neutrophils # Monocytes # (Manual) Heparin Anti-Xa Level Sodium Potassium Chloride Carbon Dioxide BUN Creatinine Glucose POC Glucose 157 H 135 H 131 H Calcium Total Protein Albumin 03/16/19 08:09 WBC RBC Hgb Hct MCHC RDW Plt Count [place] % (Auto) [place] # Monocytes % (Manual) Seg Neutrophils # Monocytes # (Manual) Heparin Anti-Xa Level Sodium Potassium Chloride Carbon Dioxide BUN Creatinine Glucose POC Glucose 120 H Calcium Total Protein Albumin
[2019-03-16] MEDS: XANAX PO SCH ×2 (09:17→21:01)
[2019-03-16] MEDS: PLAVIX PO SCH (09:17)
[2019-03-16] MEDS: celeXA PO SCH (09:18)
[2019-03-16] MEDS: HABITROL TD SCH (09:18)
[2019-03-16] MEDS: MS CONTIN ER PO SCH ×2 (09:18→21:01)
[2019-03-16] MEDS: HumaLOG SUB-Q SCH ×4 (09:18→22:14)
[2019-03-16] MEDS: SODIUM CHLORIDE FLUSH SYRINGE 10 ML IV SCH ×2 (13:28→22:17)
[2019-03-16] MEDS: COREG PO SCH ×2 (13:29→21:02)
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
[2019-03-16] MEDS: MORPHINE IV PRN ×2 (15:53→19:07)
[2019-03-16] MEDS: RESTORIL PO PRN (20:48)
[2019-03-16] MEDS: LANTUS SUB-Q SCH (21:02)
[2019-03-17] MEDS: HEPARIN/ 0.45% NACL-25,000 UNIT/500 ML 25,000 UNIT/500 ML BAG IV SCH ×2 (00:42→12:45)
[2019-03-17] MEDS: MORPHINE IV PRN ×2 (06:04→20:33)
[2019-03-17] MEDS: BROVANA NEBU IH SCH ×2 (07:29→19:38)
[2019-03-17] MEDS: DUONEB *Not for PRN Use IH SCH ×3 (07:29→19:39)
[2019-03-17] MEDS: PULMICORT IH SCH ×2 (07:29→19:38)
[2019-03-17] MEDS: HumaLOG SUB-Q SCH ×5 (08:11→22:51)
[2019-03-17] MEDS: celeXA PO SCH (09:31)
[2019-03-17] MEDS: COREG PO SCH ×2 (09:31→21:54)
[2019-03-17] MEDS: PLAVIX PO SCH (09:31)
[2019-03-17] MEDS: XANAX PO SCH ×3 (09:31→22:48)
[2019-03-17] MEDS: HABITROL TD SCH (09:32)
[2019-03-17] MEDS: MS CONTIN ER PO SCH ×2 (09:32→21:55)
[2019-03-17] MEDS: SODIUM CHLORIDE FLUSH SYRINGE 10 ML IV SCH ×2 (10:00→22:52)
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
[2019-03-17] MEDS: PERCOCET 5/325 PO PRN (18:06)
[2019-03-17] MEDS: ELIQUIS PO SCH ×2 (18:06→22:50)
[2019-03-17] MEDS: PROTONIX PO SCH (18:06)
[2019-03-17] MEDS: LANTUS SUB-Q SCH (22:50)
[2019-03-18] MEDS: PERCOCET 5/325 PO PRN ×5 (02:37→22:12)
[2019-03-18] MEDS: HumaLOG SUB-Q SCH ×4 (08:47→22:13)
[2019-03-18] MEDS: BROVANA NEBU IH SCH ×3 (09:18→19:25)
[2019-03-18] MEDS: DUONEB *Not for PRN Use IH SCH ×3 (09:18→19:26)
[2019-03-18] MEDS: PULMICORT IH SCH ×3 (09:19→19:26)
--- NOTE | 2019-03-18 09:55 | Procedure Note ---
Date of procedure: 03/18/19 Pre-op diagnosis: Right foot wound with necrotic SQ tissue Post-op diagnosis: same Procedure: Debridement of necrotic SQ, right foot Description of procedure: Pt was supine on his bed. Necrotic SQ tissue was surgically excisionally debrided with a #15 scalpel and forceps. Bleeding was minimal and was controlled with pressure. Wound was packed with dry 4 X 4's followed by a Kerlix wrap. Pt tolerated the procedure well. Final wound measurements were 6 X 12 X 3 cm. Anesthesia: none Surgeon: YOLY HANLEY Estimated blood loss: minimal Pathology: none Specimen disposition: discarded Condition: stable Disposition: no change
[2019-03-18] MEDS: COREG PO SCH ×2 (10:29→22:13)
[2019-03-18] MEDS: HABITROL TD SCH (10:37)
[2019-03-18] MEDS: MS CONTIN ER PO SCH ×2 (10:38→22:11)
[2019-03-18] MEDS: PLAVIX PO SCH (10:38)
[2019-03-18] MEDS: SODIUM CHLORIDE FLUSH SYRINGE 10 ML IV SCH ×2 (10:39→22:13)
[2019-03-18] MEDS: XANAX PO SCH ×2 (10:39→22:12)
[2019-03-18] MEDS: PROTONIX PO SCH (10:39)
[2019-03-18] MEDS: ELIQUIS PO SCH ×2 (10:39→22:12)
[2019-03-18] MEDS: celeXA PO SCH (10:39)
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
[2019-03-18] MEDS: LANTUS SUB-Q SCH (22:17)
[2019-03-19] MEDS: PERCOCET 5/325 PO PRN ×4 (06:17→23:55)
[2019-03-19] MEDS: BROVANA NEBU IH SCH ×2 (08:31→20:57)
[2019-03-19] MEDS: PULMICORT IH SCH ×2 (08:31→20:57)
[2019-03-19] MEDS: DUONEB *Not for PRN Use IH SCH ×3 (08:31→20:57)
[2019-03-19] MEDS: HumaLOG SUB-Q SCH ×4 (09:19→21:23)
--- NOTE | 2019-03-19 09:51 | Progress Note ---
Subjective Date of service: 03/19/19 Principal diagnosis: PVD with arterial embolism Interval history: agitation under control and confusion is better no additional strokes are noted placement will be difficult given the long background of being uncooperative Objective - Vital Sign Vital Signs - 12hr 03/18/19 03/18/19 03/19/19 22:13 22:54 05:51 Temperature 98.1 F 98.2 F Pulse Rate 82 90 77 Pulse Rate [ Anterior Bilateral Throughout] Pulse Rate [ Anterior Bilateral Upper Lobe] Pulse Rate [ Posterior Bilateral Throughout] Respiratory 18 18 Rate Respiratory Rate [Anterior Bilateral Throughout] Respiratory Rate [Anterior Bilateral Upper Lobe] Respiratory Rate [Posterior Bilateral Throughout] Blood Pressure 110/60 118/57 118/55 O2 Sat by Pulse 94 93 Oximetry 03/19/19 08:30 Temperature Pulse Rate Pulse Rate [ 80 Anterior Bilateral Throughout] Pulse Rate [ 80 Anterior Bilateral Upper Lobe] Pulse Rate [ 80 Posterior Bilateral Throughout] Respiratory Rate Respiratory 18 Rate [Anterior Bilateral Throughout] Respiratory 18 Rate [Anterior Bilateral Upper Lobe] Respiratory 18 Rate [Posterior Bilateral Throughout] Blood Pressure O2 Sat by Pulse Oximetry - Laboratory Findings CBC and BMP: 03/14/19 07:32 03/14/19 07:32 Abnormal Lab Findings: Abnormal Labs 03/02/19 03/02/19 03/02/19 04:23 04:23 17:10 WBC 11.9 H RBC Hgb 11.4 L Hct 33.0 L MCHC 35 H RDW Plt Count [place] % (Auto) 9.8 H [place] # 1.2 H Monocytes % (Manual) Seg Neutrophils # 8.3 H Monocytes # (Manual) Heparin Anti-Xa Level Sodium 136 L Potassium 3.0 L Chloride 96.7 L Carbon Dioxide 32 H BUN Creatinine 0.5 L Glucose 256 H POC Glucose 394 H Calcium Total Protein Albumin 03/02/19 03/03/19 03/03/19 21:37 07:45 16:43 WBC RBC Hgb Hct MCHC RDW Plt Count [place] % (Auto) [place] # Monocytes % (Manual) Seg Neutrophils # Monocytes # (Manual) Heparin Anti-Xa Level Sodium Potassium Chloride Carbon Dioxide BUN Creatinine Glucose POC Glucose 134 H 154 H 257 H Calcium Total Protein Albumin 03/03/19 03/03/19 03/04/19 20:50 21:44 05:19 WBC RBC Hgb Hct MCHC RDW Plt Count [place] % (Auto) [place] # Monocytes % (Manual) Seg Neutrophils # Monocytes # (Manual) Heparin Anti-Xa Level < 0.10 L 0.10 L Sodium Potassium Chloride Carbon Dioxide BUN Creatinine Glucose POC Glucose 186 H Calcium Total Protein Albumin 03/04/19 03/04/19 03/04/19 07:38 08:06 12:43 WBC RBC Hgb Hct MCHC RDW Plt Count [place] % (Auto) [place] # Monocytes % (Manual) Seg Neutrophils # Monocytes # (Manual) Heparin Anti-Xa Level Sodium 135 L Potassium Chloride 96.6 L Carbon Dioxide BUN 8 L Creatinine 0.3 L Glucose 102 H POC Glucose 164 H 118 H Calcium 8.1 L Total Protein Albumin 03/04/19 03/04/19 03/04/19 15:59 20:51 21:23 WBC RBC Hgb Hct MCHC RDW Plt Count [place] % (Auto) [place] # Monocytes % (Manual) Seg Neutrophils # Monocytes # (Manual) Heparin Anti-Xa Level < 0.10 L Sodium Potassium Chloride Carbon Dioxide BUN Creatinine Glucose POC Glucose 126 H 281 H Calcium Total Protein Albumin 03/05/19 03/05/19 03/05/19 05:05 05:05 05:05 WBC RBC Hgb 11.6 L Hct 33.6 L MCHC 35 H RDW Plt Count [place] % (Auto) [place] # Monocytes % (Manual) Seg Neutrophils # Monocytes # (Manual) Heparin Anti-Xa Level 0.10 L Sodium Potassium Chloride Carbon Dioxide BUN 8 L Creatinine 0.4 L Glucose 121 H POC Glucose Calcium 8.1 L Total Protein 6.2 L Albumin 2.9 L 03/05/19 03/05/19 03/05/19 08:18 12:16 16:33 WBC RBC Hgb Hct MCHC RDW Plt Count [place] % (Auto) [place] # Monocytes % (Manual) Seg Neutrophils # Monocytes # (Manual) Heparin Anti-Xa Level Sodium Potassium Chloride Carbon Dioxide BUN Creatinine Glucose POC Glucose 392 H 133 H 156 H Calcium Total Protein Albumin 03/05/19 03/05/19 03/06/19 16:45 21:52 01:06 WBC RBC Hgb Hct MCHC RDW Plt Count [place] % (Auto) [place] # Monocytes % (Manual) Seg Neutrophils # Monocytes # (Manual) Heparin Anti-Xa Level 0.18 L < 0.10 L Sodium Potassium Chloride Carbon Dioxide BUN Creatinine Glucose POC Glucose 177 H Calcium Total Protein Albumin 03/06/19 03/06/1919 08:23 11:19 16:40 WBC RBC Hgb Hct MCHC RDW Plt Count [place] % (Auto) [place] # Monocytes % (Manual) Seg Neutrophils # Monocytes # (Manual) Heparin Anti-Xa Level Sodium Potassium Chloride Carbon Dioxide BUN Creatinine Glucose POC Glucose 107 H 229 H 172 H Calcium Total Protein Albumin 03/06/19 03/07/19 03/07/19 22:02 07:36 07:47 WBC RBC Hgb 11.4 L Hct 33.9 L MCHC RDW Plt Count [place] % (Auto) [place] # Monocytes % (Manual) Seg Neutrophils # Monocytes # (Manual) Heparin Anti-Xa Level Sodium Potassium Chloride Carbon Dioxide BUN Creatinine Glucose POC Glucose 119 H 121 H Calcium Total Protein Albumin 03/07/19 03/07/19 03/07/19 07:47 12:09 16:43 WBC RBC Hgb Hct MCHC RDW Plt Count [place] % (Auto) [place] # Monocytes % (Manual) Seg Neutrophils # Monocytes # (Manual) Heparin Anti-Xa Level 0.23 L Sodium Potassium Chloride Carbon Dioxide BUN Creatinine Glucose POC Glucose 186 H 194 H Calcium Total Protein Albumin 03/07/19 03/08/19 03/08/19 21:42 08:02 11:35 WBC RBC Hgb Hct MCHC RDW Plt Count [place] % (Auto) [place] # Monocytes % (Manual) Seg Neutrophils # Monocytes # (Manual) Heparin Anti-Xa Level Sodium Potassium Chloride Carbon Dioxide BUN Creatinine Glucose POC Glucose 174 H 133 H 130 H Calcium Total Protein Albumin 03/08/19 03/09/19 03/09/19 21:40 07:30 07:40 WBC RBC Hgb 11.3 L Hct 32.8 L MCHC RDW Plt Count [place] % (Auto) [place] # Monocytes % (Manual) Seg Neutrophils # Monocytes # (Manual) Heparin Anti-Xa Level Sodium Potassium Chloride Carbon Dioxide BUN Creatinine Glucose POC Glucose 194 H 149 H Calcium Total Protein Albumin 03/09/19 03/09/19 03/09/19 11:42 16:18 21:20 WBC RBC Hgb Hct MCHC RDW Plt Count [place] % (Auto) [place] # Monocytes % (Manual) Seg Neutrophils # Monocytes # (Manual) Heparin Anti-Xa Level Sodium Potassium Chloride Carbon Dioxide BUN Creatinine Glucose POC Glucose 143 H 190 H 209 H Calcium Total Protein Albumin 03/10/19 03/10/19 03/10/19 07:32 07:32 11:28 WBC 12.9 H RBC Hgb 11.3 L Hct 33.7 L MCHC RDW Plt Count 457 H [place] % (Auto) [place] # Monocytes % (Manual) Seg Neutrophils # Monocytes # (Manual) Heparin Anti-Xa Level Sodium 136 L Potassium Chloride Carbon Dioxide BUN Creatinine 0.5 L Glucose POC Glucose 240 H Calcium Total Protein Albumin 03/10/19 03/10/19 03/11/19 18:08 22:48 04:57 WBC RBC Hgb 11.0 L Hct 32.8 L MCHC RDW Plt Count 457 H [place] % (Auto) [place] # Monocytes % (Manual) Seg Neutrophils # Monocytes # (Manual) Heparin Anti-Xa Level Sodium Potassium Chloride Carbon Dioxide BUN Creatinine Glucose POC Glucose 158 H 148 H Calcium Total Protein Albumin 03/11/19 03/11/19 03/11/19 04:57 08:20 13:59 WBC RBC Hgb Hct MCHC RDW Plt Count [place] % (Auto) [place] # Monocytes % (Manual) Seg Neutrophils # Monocytes # (Manual) Heparin Anti-Xa Level Sodium 136 L Potassium Chloride Carbon Dioxide BUN 7 L Creatinine 0.5 L Glucose 126 H POC Glucose 132 H 115 H Calcium Total Protein Albumin 03/11/19 03/11/19 03/11/19 18:10 18:33 21:54 WBC RBC Hgb Hct MCHC RDW Plt Count [place] % (Auto) [place] # Monocytes % (Manual) Seg Neutrophils # Monocytes # (Manual) Heparin Anti-Xa Level 0.21 L Sodium Potassium Chloride Carbon Dioxide BUN Creatinine Glucose POC Glucose 233 H 171 H Calcium Total Protein Albumin 03/12/19 03/12/19 03/12/19 06:50 06:50 10:38 WBC RBC 3.63 L Hgb 10.9 L Hct 31.5 L MCHC 35 H RDW 15.3 H Plt Count [place] % (Auto) [place] # Monocytes % (Manual) Seg Neutrophils # Monocytes # (Manual) Heparin Anti-Xa Level Sodium 135 L Potassium Chloride Carbon Dioxide BUN 8 L Creatinine 0.5 L Glucose 122 H POC Glucose 107 H Calcium Total Protein Albumin 03/12/19 03/13/19 03/13/19 21:46 08:07 09:22 WBC RBC Hgb Hct MCHC RDW Plt Count [place] % (Auto) [place] # Monocytes % (Manual) Seg Neutrophils # Monocytes # (Manual) Heparin Anti-Xa Level < 0.10 L Sodium Potassium Chloride Carbon Dioxide BUN Creatinine Glucose POC Glucose 130 H 137 H Calcium Total Protein Albumin 03/13/19 03/13/19 03/13/19 11:26 17:16 19:00 WBC RBC Hgb Hct MCHC RDW Plt Count [place] % (Auto) [place] # Monocytes % (Manual) Seg Neutrophils # Monocytes # (Manual) Heparin Anti-Xa Level 0.22 L Sodium Potassium Chloride Carbon Dioxide BUN Creatinine Glucose POC Glucose 238 H 164 H Calcium Total Protein Albumin 03/13/19 03/14/19 03/14/19 21:26 01:55 07:32 WBC 11.1 H RBC Hgb Hct 35.2 L MCHC RDW Plt Count 505 H [place] % (Auto) [place] # Monocytes % (Manual) 12.0 H Seg Neutrophils # Monocytes # (Manual) 1.3 H Heparin Anti-Xa Level < 0.10 L Sodium Potassium Chloride Carbon Dioxide BUN Creatinine Glucose POC Glucose 242 H Calcium Total Protein Albumin 03/14/19 03/14/19 03/14/19 07:32 08:05 11:18 WBC RBC Hgb Hct MCHC RDW Plt Count [place] % (Auto) [place] # Monocytes % (Manual) Seg Neutrophils # Monocytes # (Manual) Heparin Anti-Xa Level Sodium Potassium Chloride Carbon Dioxide 31 H BUN 6 L Creatinine 0.4 L Glucose 155 H POC Glucose 249 H 234 H Calcium Total Protein Albumin 03/14/19 03/14/19 03/15/19 16:36 21:41 08:00 WBC RBC Hgb Hct MCHC RDW Plt Count [place] % (Auto) [place] # Monocytes % (Manual) Seg Neutrophils # Monocytes # (Manual) Heparin Anti-Xa Level Sodium Potassium Chloride Carbon Dioxide BUN Creatinine Glucose POC Glucose 239 H 275 H 158 H Calcium Total Protein Albumin 03/15/19 03/15/19 03/15/19 12:07 17:13 21:39 WBC RBC Hgb Hct MCHC RDW Plt Count [place] % (Auto) [place] # Monocytes % (Manual) Seg Neutrophils # Monocytes # (Manual) Heparin Anti-Xa Level Sodium Potassium Chloride Carbon Dioxide BUN Creatinine Glucose POC Glucose 157 H 135 H 131 H Calcium Total Protein Albumin 03/16/19 03/16/19 03/16/19 08:09 11:33 17:11 WBC RBC Hgb Hct MCHC RDW Plt Count [place] % (Auto) [place] # Monocytes % (Manual) Seg Neutrophils # Monocytes # (Manual) Heparin Anti-Xa Level Sodium Potassium Chloride Carbon Dioxide BUN Creatinine Glucose POC Glucose 120 H 144 H 167 H Calcium Total Protein Albumin 03/16/19 03/17/19 03/17/19 21:42 08:03 12:01 WBC RBC Hgb Hct MCHC RDW Plt Count [place] % (Auto) [place] # Monocytes % (Manual) Seg Neutrophils # Monocytes # (Manual) Heparin Anti-Xa Level Sodium Potassium Chloride Carbon Dioxide BUN Creatinine Glucose POC Glucose 138 H 121 H 143 H Calcium Total Protein Albumin 03/17/19 03/17/19 03/18/19 17:11 21:43 07:47 WBC RBC Hgb Hct MCHC RDW Plt Count [place] % (Auto) [place] # Monocytes % (Manual) Seg Neutrophils # Monocytes # (Manual) Heparin Anti-Xa Level Sodium Potassium Chloride Carbon Dioxide BUN Creatinine Glucose POC Glucose 157 H 159 H 157 H Calcium Total Protein Albumin 03/18/19 03/18/19 03/18/19 11:31 17:31 22:10 WBC RBC Hgb Hct MCHC RDW Plt Count [place] % (Auto) [place] # Monocytes % (Manual) Seg Neutrophils # Monocytes # (Manual) Heparin Anti-Xa Level Sodium Potassium Chloride Carbon Dioxide BUN Creatinine Glucose POC Glucose 168 H 202 H 289 H Calcium Total Protein Albumin 03/19/19 07:47 WBC RBC Hgb Hct MCHC RDW Plt Count [place] % (Auto) [place] # Monocytes % (Manual) Seg Neutrophils # Monocytes # (Manual) Heparin Anti-Xa Level Sodium Potassium Chloride Carbon Dioxide BUN Creatinine Glucose POC Glucose 187 H Calcium Total Protein Albumin
[2019-03-19] MEDS: PROTONIX PO SCH (09:53)
[2019-03-19] MEDS: PLAVIX PO SCH (09:53)
[2019-03-19] MEDS: XANAX PO SCH ×2 (09:53→21:25)
[2019-03-19] MEDS: MS CONTIN ER PO SCH ×2 (09:53→21:24)
[2019-03-19] MEDS: celeXA PO SCH (09:53)
[2019-03-19] MEDS: ELIQUIS PO SCH ×2 (09:53→21:23)
[2019-03-19] MEDS: HABITROL TD SCH (09:54)
[2019-03-19] MEDS: COREG PO SCH ×2 (09:58→22:00)
[2019-03-19] MEDS: SODIUM CHLORIDE FLUSH SYRINGE 10 ML IV SCH ×2 (09:59→21:25)
[2019-03-19 10:08] LABS: Basophils # (Auto) 0.1 K/mm3 (0.0-0.1); Basophils % (Auto) 0.5 % (0.0-1.8); Eosinophils # (Auto) 0.2 K/mm3 (0.0-0.4); Eosinophils % (Auto) 1.7 % (0.0-4.3); Hemoglobin 11.2 gm/dl (11.8-15.2); Lymphocytes # (Auto) 2.2 K/mm3 (1.2-5.4); Lymphocytes % (Auto) 17.4 % (13.4-35.0); Mean Corpuscular HGB Conc 33 % (32-34); Mean Corpuscular Volume 86 fl (84-94); Monocytes # (Auto) 1.5 K/mm3 (0.0-0.8); Monocytes % (Auto) 11.9 % (0.0-7.3); Platelet Count 529 K/mm3 (140-440); Red Blood Count 3.95 M/mm3 (3.65-5.03); Red Cell Distribution Width 14.8 % (13.2-15.2)
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
[2019-03-19 15:12] LABS: Alanine Aminotransferase 12 units/L (7-56); Albumin 2.6 g/dL (3.9-5); BUN/Creatinine Ratio 28; Blood Urea Nitrogen 11 mg/dL (9-20); Calcium 8.9 mg/dL (8.4-10.2); Hemolysis Index 1
[2019-03-19] MEDS: LANTUS SUB-Q SCH (21:24)
[2019-03-20] MEDS: PERCOCET 5/325 PO PRN ×2 (05:51→17:51)
[2019-03-20 07:28] LABS: Basophils # (Auto) 0.1 K/mm3 (0.0-0.1); Basophils % (Auto) 0.4 % (0.0-1.8); Eosinophils # (Auto) 0.3 K/mm3 (0.0-0.4); Eosinophils % (Auto) 2.1 % (0.0-4.3); Hemoglobin 11.1 gm/dl (11.8-15.2); Lymphocytes # (Auto) 2.4 K/mm3 (1.2-5.4); Lymphocytes % (Auto) 19.5 % (13.4-35.0); Mean Corpuscular HGB Conc 33 % (32-34); Mean Corpuscular Volume 86 fl (84-94); Monocytes # (Auto) 1.4 K/mm3 (0.0-0.8); Monocytes % (Auto) 10.9 % (0.0-7.3); Platelet Count 493 K/mm3 (140-440); Red Blood Count 3.95 M/mm3 (3.65-5.03); Red Cell Distribution Width 14.8 % (13.2-15.2)
[2019-03-20 07:57] LABS: BUN/Creatinine Ratio 25; Blood Urea Nitrogen 10 mg/dL (9-20); Calcium 9.2 mg/dL (8.4-10.2); Hemolysis Index 0
[2019-03-20] MEDS: BROVANA NEBU IH SCH ×2 (08:01→19:54)
[2019-03-20] MEDS: PULMICORT IH SCH ×2 (08:02→19:54)
[2019-03-20] MEDS: DUONEB *Not for PRN Use IH SCH ×3 (08:18→19:54)
[2019-03-20] MEDS: MORPHINE IV PRN (08:53)
[2019-03-20] MEDS: HumaLOG SUB-Q SCH ×3 (08:54→17:51)
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
[2019-03-20] MEDS: celeXA PO SCH (12:35)
[2019-03-20] MEDS: PLAVIX PO SCH (12:35)
[2019-03-20] MEDS: ELIQUIS PO SCH ×2 (12:35→22:08)
[2019-03-20] MEDS: PROTONIX PO SCH (12:35)
[2019-03-20] MEDS: HABITROL TD SCH (12:35)
[2019-03-20] MEDS: MS CONTIN ER PO SCH ×2 (12:36→22:09)
[2019-03-20] MEDS: XANAX PO SCH ×2 (12:40→22:08)
[2019-03-20] MEDS: COREG PO SCH ×2 (12:40→22:11)
[2019-03-20] MEDS: SODIUM CHLORIDE FLUSH SYRINGE 10 ML IV SCH ×2 (12:40→22:10)
[2019-03-20] MEDS: LANTUS SUB-Q SCH (22:09)
[2019-03-21] MEDS: HumaLOG SUB-Q SCH ×5 (01:40→22:04)
[2019-03-21] MEDS: MORPHINE IV PRN ×2 (02:03→15:47)
[2019-03-21] MEDS: RESTORIL PO PRN (02:04)
[2019-03-21] MEDS: ATIVAN IV PRN (02:04)
[2019-03-21 05:45] LABS: Basophils # (Auto) 0.1 K/mm3 (0.0-0.1); Basophils % (Auto) 0.6 % (0.0-1.8); Eosinophils # (Auto) 0.3 K/mm3 (0.0-0.4); Eosinophils % (Auto) 1.7 % (0.0-4.3); Hemoglobin 12.1 gm/dl (11.8-15.2); Lymphocytes % (Auto) 17.8 % (13.4-35.0); Mean Corpuscular HGB Conc 34 % (32-34); Mean Corpuscular Volume 87 fl (84-94); Monocytes # (Auto) 2.2 K/mm3 (0.0-0.8); Monocytes % (Auto) 13.2 % (0.0-7.3); Platelet Count 499 K/mm3 (140-440); Red Blood Count 4.15 M/mm3 (3.65-5.03); Red Cell Distribution Width 14.7 % (13.2-15.2)
[2019-03-21 05:57] LABS: BUN/Creatinine Ratio 26; Blood Urea Nitrogen 13 mg/dL (9-20); Calcium 9.1 mg/dL (8.4-10.2); Hemolysis Index 19
[2019-03-21] MEDS: DUONEB *Not for PRN Use IH SCH ×3 (08:50→20:41)
[2019-03-21] MEDS: BROVANA NEBU IH SCH ×2 (08:50→20:41)
[2019-03-21] MEDS: PULMICORT IH SCH ×2 (08:51→20:41)
[2019-03-21] MEDS: PERCOCET 5/325 PO PRN ×2 (09:06→12:46)
[2019-03-21] MEDS: COREG PO SCH ×3 (10:00→22:06)
[2019-03-21] MEDS: HABITROL TD SCH (10:44)
[2019-03-21] MEDS: celeXA PO SCH (10:45)
[2019-03-21] MEDS: MS CONTIN ER PO SCH ×2 (10:45→22:05)
[2019-03-21] MEDS: ELIQUIS PO SCH ×2 (10:45→22:06)
[2019-03-21] MEDS: PROTONIX PO SCH (10:45)
[2019-03-21] MEDS: SODIUM CHLORIDE FLUSH SYRINGE 10 ML IV SCH ×2 (10:46→22:08)
[2019-03-21] MEDS: PLAVIX PO SCH (10:46)
[2019-03-21] MEDS: XANAX PO SCH ×2 (12:46→22:07)
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
[2019-03-21] MEDS: LANTUS SUB-Q SCH (22:05)
[2019-03-22 07:24] LABS: Basophils # (Auto) 0.1 K/mm3 (0.0-0.1); Basophils % (Auto) 0.5 % (0.0-1.8); Eosinophils # (Auto) 0.2 K/mm3 (0.0-0.4); Eosinophils % (Auto) 1.4 % (0.0-4.3); Hematocrit 33.9 % (35.5-45.6); Hemoglobin 11.4 gm/dl (11.8-15.2); Lymphocytes # (Auto) 2.7 K/mm3 (1.2-5.4); Lymphocytes % (Auto) 18.1 % (13.4-35.0); Mean Corpuscular HGB Conc 34 % (32-34); Mean Corpuscular Volume 85 fl (84-94); Monocytes # (Auto) 1.7 K/mm3 (0.0-0.8); Monocytes % (Auto) 11.2 % (0.0-7.3); Platelet Count 531 K/mm3 (140-440); Red Blood Count 3.97 M/mm3 (3.65-5.03); Red Cell Distribution Width 14.7 % (13.2-15.2)
[2019-03-22] MEDS: HumaLOG SUB-Q SCH ×4 (07:30→22:54)
[2019-03-22 07:45] LABS: BUN/Creatinine Ratio 35; Blood Urea Nitrogen 14 mg/dL (9-20); Calcium 9.1 mg/dL (8.4-10.2); Hemolysis Index 0
[2019-03-22] MEDS: PULMICORT IH SCH ×2 (08:33→19:50)
[2019-03-22] MEDS: DUONEB *Not for PRN Use IH SCH ×3 (08:33→19:50)
[2019-03-22] MEDS: BROVANA NEBU IH SCH ×2 (08:33→20:00)
[2019-03-22] MEDS: MS CONTIN ER PO SCH ×2 (09:16→22:55)
[2019-03-22] MEDS: PLAVIX PO SCH (09:16)
[2019-03-22] MEDS: COREG PO SCH ×2 (09:17→22:53)
[2019-03-22] MEDS: ELIQUIS PO SCH ×2 (09:17→22:53)
[2019-03-22] MEDS: PROTONIX PO SCH (09:17)
[2019-03-22] MEDS: XANAX PO SCH ×2 (09:17→22:54)
[2019-03-22] MEDS: celeXA PO SCH (09:17)
[2019-03-22] MEDS: SODIUM CHLORIDE FLUSH SYRINGE 10 ML IV SCH ×2 (09:18→22:55)
[2019-03-22] MEDS: HABITROL TD SCH (09:18)
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
[2019-03-22] MEDS: PERCOCET 5/325 PO PRN ×3 (14:14→22:56)
[2019-03-22] MEDS: LANTUS SUB-Q SCH (22:55)
[2019-03-23] MEDS: PERCOCET 5/325 PO PRN ×3 (05:35→16:27)
[2019-03-23] MEDS: PULMICORT IH SCH ×2 (08:37→20:13)
[2019-03-23] MEDS: DUONEB *Not for PRN Use IH SCH ×3 (08:37→20:13)
[2019-03-23] MEDS: BROVANA NEBU IH SCH ×2 (08:37→20:13)
[2019-03-23] MEDS: HumaLOG SUB-Q SCH ×4 (08:45→22:40)
[2019-03-23] MEDS: HABITROL TD SCH (10:07)
[2019-03-23] MEDS: celeXA PO SCH (10:08)
[2019-03-23] MEDS: ELIQUIS PO SCH ×2 (10:08→22:35)
[2019-03-23] MEDS: MS CONTIN ER PO SCH ×2 (10:09→23:40)
[2019-03-23] MEDS: COREG PO SCH ×2 (10:09→22:35)
[2019-03-23] MEDS: PLAVIX PO SCH (10:10)
[2019-03-23] MEDS: SODIUM CHLORIDE FLUSH SYRINGE 10 ML IV SCH ×2 (10:10→22:40)
[2019-03-23] MEDS: XANAX PO SCH ×2 (10:11→23:40)
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
[2019-03-23] MEDS: PROTONIX PO SCH (12:06)
--- NOTE | 2019-03-23 15:37 | Progress Note ---
Subjective Date of service: 03/24/19 Principal diagnosis: PVD with arterial embolism Interval history: no seizures are observed and patient is stable... agitation and emotionl problems seem improved Objective - Vital Sign Vital Signs - 12hr 03/23/19 03/23/19 03/23/19 04:00 05:11 05:35 Temperature 98.3 F Pulse Rate 77 Respiratory 18 17 Rate Respiratory 18 Rate [Bilateral ] Respiratory 18 Rate [Left Foot ] Blood Pressure 109/67 O2 Sat by Pulse 94 Oximetry 03/23/19 03/23/19 03/23/19 06:35 10:00 10:07 Temperature Pulse Rate Respiratory 17 20 Rate Respiratory Rate [Bilateral ] Respiratory Rate [Left Foot ] Blood Pressure O2 Sat by Pulse 94 Oximetry 03/23/19 03/23/19 10:09 12:26 Temperature 98.6 F Pulse Rate 77 77 Respiratory 19 Rate Respiratory Rate [Bilateral ] Respiratory Rate [Left Foot ] Blood Pressure 107/67 104/57 O2 Sat by Pulse 94 Oximetry - Laboratory Findings CBC and BMP: 03/22/19 07:06 03/22/19 07:06 Abnormal Lab Findings: Abnormal Labs 03/02/19 03/02/19 03/02/19 04:23 04:23 17:10 WBC 11.9 H RBC Hgb 11.4 L Hct 33.0 L MCHC 35 H RDW Plt Count [place] % (Auto) 9.8 H [place] # 1.2 H Monocytes % (Manual) Seg Neutrophils # 8.3 H Monocytes # (Manual) Heparin Anti-Xa Level Sodium 136 L Potassium 3.0 L Chloride 96.7 L Carbon Dioxide 32 H BUN Creatinine 0.5 L Glucose 256 H POC Glucose 394 H Calcium Total Protein Albumin 03/02/19 03/03/19 03/03/19 21:37 07:45 16:43 WBC RBC Hgb Hct MCHC RDW Plt Count [place] % (Auto) [place] # Monocytes % (Manual) Seg Neutrophils # Monocytes # (Manual) Heparin Anti-Xa Level Sodium Potassium Chloride Carbon Dioxide BUN Creatinine Glucose POC Glucose 134 H 154 H 257 H Calcium Total Protein Albumin 03/03/19 03/03/19 03/04/19 20:50 21:44 05:19 WBC RBC Hgb Hct MCHC RDW Plt Count [place] % (Auto) [place] # Monocytes % (Manual) Seg Neutrophils # Monocytes # (Manual) Heparin Anti-Xa Level < 0.10 L 0.10 L Sodium Potassium Chloride Carbon Dioxide BUN Creatinine Glucose POC Glucose 186 H Calcium Total Protein Albumin 03/04/19 03/04/19 03/04/19 07:38 08:06 12:43 WBC RBC Hgb Hct MCHC RDW Plt Count [place] % (Auto) [place] # Monocytes % (Manual) Seg Neutrophils # Monocytes # (Manual) Heparin Anti-Xa Level Sodium 135 L Potassium Chloride 96.6 L Carbon Dioxide BUN 8 L Creatinine 0.3 L Glucose 102 H POC Glucose 164 H 118 H Calcium 8.1 L Total Protein Albumin 03/04/19 03/04/19 03/04/19 15:59 20:51 21:23 WBC RBC Hgb Hct MCHC RDW Plt Count [place] % (Auto) [place] # Monocytes % (Manual) Seg Neutrophils # Monocytes # (Manual) Heparin Anti-Xa Level < 0.10 L Sodium Potassium Chloride Carbon Dioxide BUN Creatinine Glucose POC Glucose 126 H 281 H Calcium Total Protein Albumin 03/05/19 03/05/19 03/05/19 05:05 05:05 05:05 WBC RBC Hgb 11.6 L Hct 33.6 L MCHC 35 H RDW Plt Count [place] % (Auto) [place] # Monocytes % (Manual) Seg Neutrophils # Monocytes # (Manual) Heparin Anti-Xa Level 0.10 L Sodium Potassium Chloride Carbon Dioxide BUN 8 L Creatinine 0.4 L Glucose 121 H POC Glucose Calcium 8.1 L Total Protein 6.2 L Albumin 2.9 L 03/05/19 03/05/19 03/05/19 08:18 12:16 16:33 WBC RBC Hgb Hct MCHC RDW Plt Count [place] % (Auto) [place] # Monocytes % (Manual) Seg Neutrophils # Monocytes # (Manual) Heparin Anti-Xa Level Sodium Potassium Chloride Carbon Dioxide BUN Creatinine Glucose POC Glucose 392 H 133 H 156 H Calcium Total Protein Albumin 03/05/19 03/05/19 03/06/19 16:45 21:52 01:06 WBC RBC Hgb Hct MCHC RDW Plt Count [place] % (Auto) [place] # Monocytes % (Manual) Seg Neutrophils # Monocytes # (Manual) Heparin Anti-Xa Level 0.18 L < 0.10 L Sodium Potassium Chloride Carbon Dioxide BUN Creatinine Glucose POC Glucose 177 H Calcium Total Protein Albumin 03/06/19 03/06/19 03/06/19 08:23 11:19 16:40 WBC RBC Hgb Hct MCHC RDW Plt Count [place] % (Auto) [place] # Monocytes % (Manual) Seg Neutrophils # Monocytes # (Manual) Heparin Anti-Xa Level Sodium Potassium Chloride Carbon Dioxide BUN Creatinine Glucose POC Glucose 107 H 229 H 172 H Calcium Total Protein Albumin 03/06/19 03/07/19 03/07/19 22:02 07:36 07:47 WBC RBC Hgb 11.4 L Hct 33.9 L MCHC RDW Plt Count [place] % (Auto) [place] # Monocytes % (Manual) Seg Neutrophils # Monocytes # (Manual) Heparin Anti-Xa Level Sodium Potassium Chloride Carbon Dioxide BUN Creatinine Glucose POC Glucose 119 H 121 H Calcium Total Protein Albumin 03/07/19 03/07/19 03/07/19 07:47 12:09 16:43 WBC RBC Hgb Hct MCHC RDW Plt Count [place] % (Auto) [place] # Monocytes % (Manual) Seg Neutrophils # Monocytes # (Manual) Heparin Anti-Xa Level 0.23 L Sodium Potassium Chloride Carbon Dioxide BUN Creatinine Glucose POC Glucose 186 H 194 H Calcium Total Protein Albumin 03/07/19 03/08/19 03/08/19 21:42 08:02 11:35 WBC RBC Hgb Hct MCHC RDW Plt Count [place] % (Auto) [place] # Monocytes % (Manual) Seg Neutrophils # Monocytes # (Manual) Heparin Anti-Xa Level Sodium Potassium Chloride Carbon Dioxide BUN Creatinine Glucose POC Glucose 174 H 133 H 130 H Calcium Total Protein Albumin 03/08/19 03/09/19 03/09/19 21:40 07:30 07:40 WBC RBC Hgb 11.3 L Hct 32.8 L MCHC RDW Plt Count [place] % (Auto) [place] # Monocytes % (Manual) Seg Neutrophils # Monocytes # (Manual) Heparin Anti-Xa Level Sodium Potassium Chloride Carbon Dioxide BUN Creatinine Glucose POC Glucose 194 H 149 H Calcium Total Protein Albumin 03/09/19 03/09/19 03/09/19 11:42 16:18 21:20 WBC RBC Hgb Hct MCHC RDW Plt Count [place] % (Auto) [place] # Monocytes % (Manual) Seg Neutrophils # Monocytes # (Manual) Heparin Anti-Xa Level Sodium Potassium Chloride Carbon Dioxide BUN Creatinine Glucose POC Glucose 143 H 190 H 209 H Calcium Total Protein Albumin 03/10/19 03/10/19 03/10/19 07:32 07:32 11:28 WBC 12.9 H RBC Hgb 11.3 L Hct 33.7 L MCHC RDW Plt Count 457 H [place] % (Auto) [place] # Monocytes % (Manual) Seg Neutrophils # Monocytes # (Manual) Heparin Anti-Xa Level Sodium 136 L Potassium Chloride Carbon Dioxide BUN Creatinine 0.5 L Glucose POC Glucose 240 H Calcium Total Protein Albumin 03/10/19 03/10/19 03/11/19 18:08 22:48 04:57 WBC RBC Hgb 11.0 L Hct 32.8 L MCHC RDW Plt Count 457 H [place] % (Auto) [place] # Monocytes % (Manual) Seg Neutrophils # Monocytes # (Manual) Heparin Anti-Xa Level Sodium Potassium Chloride Carbon Dioxide BUN Creatinine Glucose POC Glucose 158 H 148 H Calcium Total Protein Albumin 03/11/19 03/11/19 03/11/19 04:57 08:20 13:59 WBC RBC Hgb Hct MCHC RDW Plt Count [place] % (Auto) [place] # Monocytes % (Manual) Seg Neutrophils # Monocytes # (Manual) Heparin Anti-Xa Level Sodium 136 L Potassium Chloride Carbon Dioxide BUN 7 L Creatinine 0.5 L Glucose 126 H POC Glucose 132 H 115 H Calcium Total Protein Albumin 03/11/19 03/11/19 03/11/19 18:10 18:33 21:54 WBC RBC Hgb Hct MCHC RDW Plt Count [place] % (Auto) [place] # Monocytes % (Manual) Seg Neutrophils # Monocytes # (Manual) Heparin Anti-Xa Level 0.21 L Sodium Potassium Chloride Carbon Dioxide BUN Creatinine Glucose POC Glucose 233 H 171 H Calcium Total Protein Albumin 03/12/19 03/12/19 03/12/19 06:50 06:50 10:38 WBC RBC 3.63 L Hgb 10.9 L Hct 31.5 L MCHC 35 H RDW 15.3 H Plt Count [place] % (Auto) [place] # Monocytes % (Manual) Seg Neutrophils # Monocytes # (Manual) Heparin Anti-Xa Level Sodium 135 L Potassium Chloride Carbon Dioxide BUN 8 L Creatinine 0.5 L Glucose 122 H POC Glucose 107 H Calcium Total Protein Albumin 03/12/19 03/13/19 03/13/19 21:46 08:07 09:22 WBC RBC Hgb Hct MCHC RDW Plt Count [place] % (Auto) [place] # Monocytes % (Manual) Seg Neutrophils # Monocytes # (Manual) Heparin Anti-Xa Level < 0.10 L Sodium Potassium Chloride Carbon Dioxide BUN Creatinine Glucose POC Glucose 130 H 137 H Calcium Total Protein Albumin 03/13/19 03/13/19 03/13/19 11:26 17:16 19:00 WBC RBC Hgb Hct MCHC RDW Plt Count [place] % (Auto) [place] # Monocytes % (Manual) Seg Neutrophils # Monocytes # (Manual) Heparin Anti-Xa Level 0.22 L Sodium Potassium Chloride Carbon Dioxide BUN Creatinine Glucose POC Glucose 238 H 164 H Calcium Total Protein Albumin 03/13/19 03/14/19 03/14/19 21:26 01:55 07:32 WBC 11.1 H RBC Hgb Hct 35.2 L MCHC RDW Plt Count 505 H [place] % (Auto) [place] # Monocytes % (Manual) 12.0 H Seg Neutrophils # Monocytes # (Manual) 1.3 H Heparin Anti-Xa Level < 0.10 L Sodium Potassium Chloride Carbon Dioxide BUN Creatinine Glucose POC Glucose 242 H Calcium Total Protein Albumin 03/14/19 03/14/19 03/14/19 07:32 08:05 11:18 WBC RBC Hgb Hct MCHC RDW Plt Count [place] % (Auto) [place] # Monocytes % (Manual) Seg Neutrophils # Monocytes # (Manual) Heparin Anti-Xa Level Sodium Potassium Chloride Carbon Dioxide 31 H BUN 6 L Creatinine 0.4 L Glucose 155 H POC Glucose 249 H 234 H Calcium Total Protein Albumin 03/14/19 03/14/19 03/15/19 16:36 21:41 08:00 WBC RBC Hgb Hct MCHC RDW Plt Count [place] % (Auto) [place] # Monocytes % (Manual) Seg Neutrophils # Monocytes # (Manual) Heparin Anti-Xa Level Sodium Potassium Chloride Carbon Dioxide BUN Creatinine Glucose POC Glucose 239 H 275 H 158 H Calcium Total Protein Albumin 03/15/19 03/15/19 03/15/19 12:07 17:13 21:39 WBC RBC Hgb Hct MCHC RDW Plt Count [place] % (Auto) [place] # Monocytes % (Manual) Seg Neutrophils # Monocytes # (Manual) Heparin Anti-Xa Level Sodium Potassium Chloride Carbon Dioxide BUN Creatinine Glucose POC Glucose 157 H 135 H 131 H Calcium Total Protein Albumin 03/16/19 03/16/19 03/16/19 08:09 11:33 17:11 WBC RBC Hgb Hct MCHC RDW Plt Count [place] % (Auto) [place] # Monocytes % (Manual) Seg Neutrophils # Monocytes # (Manual) Heparin Anti-Xa Level Sodium Potassium Chloride Carbon Dioxide BUN Creatinine Glucose POC Glucose 120 H 144 H 167 H Calcium Total Protein Albumin 03/16/19 03/17/19 03/17/19 21:42 08:03 12:01 WBC RBC Hgb Hct MCHC RDW Plt Count [place] % (Auto) [place] # Monocytes % (Manual) Seg Neutrophils # Monocytes # (Manual) Heparin Anti-Xa Level Sodium Potassium Chloride Carbon Dioxide BUN Creatinine Glucose POC Glucose 138 H 121 H 143 H Calcium Total Protein Albumin 03/17/19 03/17/19 03/18/19 17:11 21:43 07:47 WBC RBC Hgb Hct MCHC RDW Plt Count [place] % (Auto) [place] # Monocytes % (Manual) Seg Neutrophils # Monocytes # (Manual) Heparin Anti-Xa Level Sodium Potassium Chloride Carbon Dioxide BUN Creatinine Glucose POC Glucose 157 H 159 H 157 H Calcium Total Protein Albumin 03/18/19 03/18/19 03/18/19 11:31 17:31 22:10 WBC RBC Hgb Hct MCHC RDW Plt Count [place] % (Auto) [place] # Monocytes % (Manual) Seg Neutrophils # Monocytes # (Manual) Heparin Anti-Xa Level Sodium Potassium Chloride Carbon Dioxide BUN Creatinine Glucose POC Glucose 168 H 202 H 289 H Calcium Total Protein Albumin 03/19/19 03/19/19 03/19/19 07:47 09:26 09:26 WBC 12.7 H RBC Hgb 11.2 L Hct 34.0 L MCHC RDW Plt Count 529 H [place] % (Auto) 11.9 H [place] # 1.5 H Monocytes % (Manual) Seg Neutrophils # 8.7 H Monocytes # (Manual) Heparin Anti-Xa Level Sodium 136 L Potassium Chloride Carbon Dioxide BUN Creatinine 0.4 L Glucose 148 H POC Glucose 187 H Calcium Total Protein Albumin 2.6 L 03/19/19 03/19/19 03/19/19 11:27 16:46 21:13 WBC RBC Hgb Hct MCHC RDW Plt Count [place] % (Auto) [place] # Monocytes % (Manual) Seg Neutrophils # Monocytes # (Manual) Heparin Anti-Xa Level Sodium Potassium Chloride Carbon Dioxide BUN Creatinine Glucose POC Glucose 132 H 197 H 178 H Calcium Total Protein Albumin 03/20/19 03/20/19 03/20/19 06:12 06:12 08:03 WBC 12.5 H RBC Hgb 11.1 L Hct 34.0 L MCHC RDW Plt Count 493 H [place] % (Auto) 10.9 H [place] # 1.4 H Monocytes % (Manual) Seg Neutrophils # 8.4 H Monocytes # (Manual) Heparin Anti-Xa Level Sodium 132 L Potassium Chloride 92.8 L Carbon Dioxide BUN Creatinine 0.4 L Glucose 226 H POC Glucose 153 H Calcium Total Protein Albumin 03/20/19 03/20/19 03/20/19 12:40 17:01 22:46 WBC RBC Hgb Hct MCHC RDW Plt Count [place] % (Auto) [place] # Monocytes % (Manual) Seg Neutrophils # Monocytes # (Manual) Heparin Anti-Xa Level Sodium Potassium Chloride Carbon Dioxide BUN Creatinine Glucose POC Glucose 162 H 187 H 171 H Calcium Total Protein Albumin 03/21/19 03/21/19 03/21/19 04:46 04:46 08:22 WBC 16.6 H RBC Hgb Hct MCHC RDW Plt Count 499 H [place] % (Auto) 13.2 H [place] # 2.2 H Monocytes % (Manual) Seg Neutrophils # 11.1 H Monocytes # (Manual) Heparin Anti-Xa Level Sodium 133 L Potassium Chloride 95.3 L Carbon Dioxide BUN Creatinine 0.5 L Glucose 180 H POC Glucose 265 H Calcium Total Protein Albumin 03/21/19 03/21/19 03/21/19 11:59 18:04 21:16 WBC RBC Hgb Hct MCHC RDW Plt Count [place] % (Auto) [place] # Monocytes % (Manual) Seg Neutrophils # Monocytes # (Manual) Heparin Anti-Xa Level Sodium Potassium Chloride Carbon Dioxide BUN Creatinine Glucose POC Glucose 125 H 185 H 247 H Calcium Total Protein Albumin 03/22/19 03/22/19 03/22/19 07:06 07:06 08:01 WBC 14.8 H RBC Hgb 11.4 L Hct 33.9 L MCHC RDW Plt Count 531 H [place] % (Auto) 11.2 H [place] # 1.7 H Monocytes % (Manual) Seg Neutrophils # 10.2 H Monocytes # (Manual) Heparin Anti-Xa Level Sodium 135 L Potassium Chloride 96.4 L Carbon Dioxide BUN Creatinine 0.4 L Glucose 125 H POC Glucose 127 H Calcium Total Protein Albumin 03/22/19 03/22/19 03/22/19 12:21 16:28 21:34 WBC RBC Hgb Hct MCHC RDW Plt Count [place] % (Auto) [place] # Monocytes % (Manual) Seg Neutrophils # Monocytes # (Manual) Heparin Anti-Xa Level Sodium Potassium Chloride Carbon Dioxide BUN Creatinine Glucose POC Glucose 216 H 146 H 227 H Calcium Total Protein Albumin 03/23/19 03/23/19 07:56 11:30 WBC RBC Hgb Hct MCHC RDW Plt Count [place] % (Auto) [place] # Monocytes % (Manual) Seg Neutrophils # Monocytes # (Manual) Heparin Anti-Xa Level Sodium Potassium Chloride Carbon Dioxide BUN Creatinine Glucose POC Glucose 174 H 125 H Calcium Total Protein Albumin
[2019-03-23] MEDS: MORPHINE IV PRN (20:35)
[2019-03-23] MEDS: LANTUS SUB-Q SCH (22:40)
[2019-03-24] MEDS ORDERED: BENADRYL PO ONE (01:20)
[2019-03-24] MEDS: PERCOCET 5/325 PO PRN ×2 (07:10→13:14)
[2019-03-24] MEDS: HumaLOG SUB-Q SCH ×2 (07:30→11:30)
[2019-03-24] MEDS: BROVANA NEBU IH SCH ×2 (08:49→20:03)
[2019-03-24] MEDS: DUONEB *Not for PRN Use IH SCH ×3 (08:49→20:04)
[2019-03-24] MEDS: PULMICORT IH SCH ×2 (08:50→20:04)
[2019-03-24] MEDS: HABITROL TD SCH (09:15)
[2019-03-24] MEDS: PLAVIX PO SCH (09:16)
[2019-03-24] MEDS: XANAX PO SCH (09:16)
[2019-03-24] MEDS: celeXA PO SCH (09:16)
[2019-03-24] MEDS: ELIQUIS PO SCH (09:16)
[2019-03-24] MEDS: PROTONIX PO SCH (09:17)
[2019-03-24] MEDS: MS CONTIN ER PO SCH (10:55)
[2019-03-24] MEDS: COREG PO SCH (10:55)
[2019-03-24] MEDS: SODIUM CHLORIDE FLUSH SYRINGE 10 ML IV SCH (10:56)
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
[2019-03-24 17:48] VITALS: BP 106/68
== END 2019-03-24 18:00 | DRG 463 ==
LOC: ED 03:10 → 3A 12:19
PROVIDERS: ADMIT Internal Medicine; ATTEND Internal Medicine
PROC: B41D1ZZ Fluoroscopy of Aorta and Bilateral Lower Extremity Arteries using Low Osmolar Contrast (ICD-10-PCS; 2019-03-03)
PROC: 047C34Z Dilation of Right Common Iliac Artery with Drug-eluting Intraluminal Device, Percutaneous Approach (ICD-10-PCS; 2019-03-04)
PROC: B4101ZZ Fluoroscopy of Abdominal Aorta using Low Osmolar Contrast (ICD-10-PCS; 2019-03-04)
PROC: 0Y6M0Z9 Detachment at Right Foot, Partial 1st Ray, Open Approach (ICD-10-PCS; 2019-03-12)
PROC: 0Y6M0ZB Detachment at Right Foot, Partial 2nd Ray, Open Approach (ICD-10-PCS; 2019-03-12)
PROC: 0Y6M0ZC Detachment at Right Foot, Partial 3rd Ray, Open Approach (ICD-10-PCS; 2019-03-12)
PROC: 0Y6M0ZD Detachment at Right Foot, Partial 4th Ray, Open Approach (ICD-10-PCS; 2019-03-12)
PROC: 0Y6M0ZF Detachment at Right Foot, Partial 5th Ray, Open Approach (ICD-10-PCS; 2019-03-12)
PROC: 0KBR0ZZ Excision of Left Upper Leg Muscle, Open Approach (ICD-10-PCS; 2019-03-12)
PROC: 0JBQ0ZZ Excision of Right Foot Subcutaneous Tissue and Fascia, Open Approach (ICD-10-PCS; principal; 2019-03-18)
DX: T87.89 Other complications of amputation stump (principal); E43 Unspecified severe protein-calorie malnutrition; T82.868A Thrombosis due to vascular prosthetic devices, implants and grafts, initial encounter; E11.52 Type 2 diabetes mellitus with diabetic peripheral angiopathy with gangrene; I50.22 Chronic systolic (congestive) heart failure; Z68.1 Body mass index [BMI] 19.9 or less, adult; F11.20 Opioid dependence, uncomplicated; D68.59 Other primary thrombophilia; G40.89 Other seizures; G93.40 Encephalopathy, unspecified; I70.261 Atherosclerosis of native arteries of extremities with gangrene, right leg; E87.6 Hypokalemia; E86.0 Dehydration; R62.7 Adult failure to thrive; Y83.5 Amputation of limb(s) as the cause of abnormal reaction of the patient, or of later complication, without mention of misadventure at the time of the procedure; E11.65 Type 2 diabetes mellitus with hyperglycemia; G89.4 Chronic pain syndrome; F10.10 Alcohol abuse, uncomplicated; F17.200 Nicotine dependence, unspecified, uncomplicated; J43.9 Emphysema, unspecified; F14.10 Cocaine abuse, uncomplicated; I11.0 Hypertensive heart disease with heart failure; F17.210 Nicotine dependence, cigarettes, uncomplicated; Y83.8 Other surgical procedures as the cause of abnormal reaction of the patient, or of later complication, without mention of misadventure at the time of the procedure; Y90.9 Presence of alcohol in blood, level not specified; I48.2 Chronic atrial fibrillation; B18.2 Chronic viral hepatitis C; F41.9 Anxiety disorder, unspecified; Z79.82 Long term (current) use of aspirin; Z82.49 Family history of ischemic heart disease and other diseases of the circulatory system; Z89.612 Acquired absence of left leg above knee; Z71.41 Alcohol abuse counseling and surveillance of alcoholic; Z71.51 Drug abuse counseling and surveillance of drug abuser; Z71.6 Tobacco abuse counseling; Z79.84 Long term (current) use of oral hypoglycemic drugs; Z79.51 Long term (current) use of inhaled steroids; Z86.73 Personal history of transient ischemic attack (TIA), and cerebral infarction without residual deficits; Z91.14 Patient's other noncompliance with medication regimen; Y92.098 Other place in other non-institutional residence as the place of occurrence of the external cause
CPT/HCPCS: 36200; 36415; 37221; 70450; 71045; 75625; 75716; 76937; 80048; 80053; 81001; 82962; 83036; 85007; 85014; 85018; 85025; 85027; 85049; 85520; 85610; 85730; 87040; 87116; 88305; 88311; 93005; 93010; 93925; 94640; 94644; 94760; 95819; 99406; G0378; C1760; C1769; C1874; C1887; C1894; J0690; J1170; J1644; J1815; J2060; J2250; J2270; J2370; J2405; J2704; J3010; J3480; J7030; J7040; Q9967